=== PATIENT | male | born 1965 | race Caucasian/White ===

== ENCOUNTER 2018-01-30 14:37 | Emergency (ER) | payer SELFPAY ==
[2018-01-30] MEDS ORDERED: ASPIRIN PO ONE (14:54)
[2018-01-30 15:53] LABS: Basophils # (Auto) 0.1 K/mm3 (0.0-0.1); Basophils % (Auto) 1.2 % (0.0-1.8); Eosinophils % (Auto) 0.3 % (0.0-4.3); Hematocrit 38.8 % (35.5-45.6); Hemoglobin 13.2 gm/dl (11.8-15.2); Lymphocytes # (Auto) 1.5 K/mm3 (1.2-5.4); Lymphocytes % (Auto) 22.8 % (13.4-35.0); Mean Corpuscular HGB Conc 34 % (32-34); Mean Corpuscular Hemoglobin 34 pg (28-32); Mean Corpuscular Volume 101 fl (84-94); Monocytes # (Auto) 0.2 K/mm3 (0.0-0.8); Monocytes % (Auto) 3.5 % (0.0-7.3); Platelet Count 104 K/mm3 (140-440); Red Blood Count 3.85 M/mm3 (3.65-5.03); Red Cell Distribution Width 17.1 % (13.2-15.2)
--- NOTE | 2018-01-30 15:56 | XRay Report ---
FINAL REPORT EXAM: XR CHEST ROUTINE 2V HISTORY: SOB, chest pain TECHNIQUE: 2 view examination of the chest PRIORS: None FINDINGS: There is no visible pulmonary consolidation, pleural effusion, or pneumothorax. Cardiac silhouette size is normal without vascular congestion. No visible acute displaced fracture in the regional skeleton. IMPRESSION: No evidence of acute cardiopulmonary disease
[2018-01-30 16:06] LABS: BUN/Creatinine Ratio 22; Blood Urea Nitrogen 13 mg/dL (9-20); Calcium 8.7 mg/dL (8.4-10.2); Hemolysis Index 7
[2018-01-30] MEDS ORDERED: NITROSTAT SL PRN (17:18)
--- NOTE | 2018-01-30 17:22 | History and Physical Report ---
Medications and Allergies Allergies Allergy/AdvReac Type Severity Reaction Status Date / Time No Known Allergies Allergy Unverified 01/30/18 14:54 Active Meds: Active Medications Nitroglycerin (Nitrostat) 0.4 mg SL .Q5MIN PRN PRN Reason: Chest Pain Exam - Constitutional Vitals: Temp Pulse Resp BP Pulse Ox 98.6 F 67 16 116/75 98 01/30/18 14:50 01/30/18 14:50 01/30/18 14:50 01/30/18 14:50 01/30/18 14:50 Results - Labs CBC & Chem 7: 01/30/18 15:40 01/30/18 15:40 Labs: Abnormal lab results 01/30/18 01/30/18 Range/Units 15:40 15:40 MCV 101 H (84-94) fl MCH 34 H (28-32) pg RDW 17.1 H (13.2-15.2) % Plt Count 104 L (140-440) K/mm3 Seg Neutrophils % 72.2 H (40.0-70.0) % Chloride 96.2 L (98-107) mmol/L Creatinine 0.6 L (0.8-1.5) mg/dL Glucose 123 H (75-100) mg/dL
--- NOTE | 2018-01-30 17:39 | Emergency Department Report ---
ED General Adult HPI - General Chief complaint: Chest Pain Stated complaint: CHEST PAIN/ABN EKG Time Seen by Provider: 01/30/18 17:01 Source: patient, family, interpreter translator Mode of arrival: Ambulatory Limitations: No Limitations - History of Present Illness Initial comments: Patient presents to emergency department with left-sided chest pain that started this morning. Patient is Urdu-speaking and uses an interpreter translator for his history. Pain is described as sharp with radiation into his left shoulder. Patient has no medical history but does not routinely see her physician. Nothing seems to make his symptoms better or worse. -: Sudden Location: chest Radiation: other (shoulder) Severity scale (0 -10): 7 Quality: dull, other (pressure) Improves with: none Worsens with: none Associated Symptoms: denies other symptoms Treatments Prior to Arrival: none - Related Data Allergies Allergy/AdvReac Type Severity Reaction Status Date / Time No Known Allergies Allergy Unverified 01/30/18 14:54 ED Review of Systems ROS: Stated complaint: CHEST PAIN/ABN EKG Other details as noted in HPI Comment: All other systems reviewed and negative Constitutional: denies: chills, fever Eyes: denies: eye pain, eye discharge, vision change ENT: denies: ear pain, throat pain Respiratory: denies: cough, shortness of breath, wheezing Cardiovascular: chest pain Endocrine: no symptoms reported Gastrointestinal: denies: abdominal pain, nausea, diarrhea Genitourinary: denies: urgency, dysuria Musculoskeletal: denies: back pain, joint swelling, arthralgia Skin: denies: rash, lesions Neurological: denies: headache, weakness, paresthesias Psychiatric: denies: anxiety, depression Hematological/Lymphatic: denies: easy bleeding, easy bruising ED Past Medical Hx - Past Medical History Previous Medical History?: No - Surgical History Past Surgical History?: No - Social History Smoking Status: Never Smoker Substance Use Type: None ED Physical Exam - General Limitations: No Limitations General appearance: alert, in no apparent distress - Head Head exam: Present: atraumatic, normocephalic - Eye Eye exam: Present: normal appearance - ENT ENT exam: Present: mucous membranes moist - Neck Neck exam: Present: normal inspection - Respiratory Respiratory exam: Present: normal lung sounds bilaterally. Absent: respiratory distress - Cardiovascular Cardiovascular Exam: Present: regular rate, normal rhythm. Absent: systolic murmur, diastolic murmur, rubs, gallop - GI/Abdominal GI/Abdominal exam: Present: soft, normal bowel sounds - Rectal Rectal exam: Present: deferred - Extremities Exam Extremities exam: Present: normal inspection - Back Exam Back exam: Present: normal inspection - Neurological Exam Neurological exam: Present: alert, oriented X3 - Psychiatric Psychiatric exam: Present: normal affect, normal mood - Skin Skin exam: Present: warm, dry, intact, normal color. Absent: rash ED Course Vital Signs 01/30/18 14:50 Temperature 98.6 F Pulse Rate 67 Respiratory 16 Rate Blood Pressure 116/75 O2 Sat by Pulse 98 Oximetry ED Medical Decision Making - Lab Data Result diagrams: 01/30/18 15:40 01/30/18 15:40 - EKG Data EKG shows normal: sinus rhythm Rate: normal (60) - EKG Data Interpretation: nonspecific ST-T wave tayo - Medical Decision Making Patient will be admitted for chest pain workup Critical care attestation.: If time is entered above; I have spent that time in minutes in the direct care of this critically ill patient, excluding procedure time. ED Disposition Clinical Impression: Chest pain Disposition: DC-09 OP ADMIT IP TO THIS HOSP Is pt being admited?: Yes Does the pt Need Aspirin: Yes Condition: Fair Instructions: Chest Pain (ED) Referrals: PRIMARY CARE, [Primary Care Provider] - 3-5 Days Time of Disposition: 17:10
--- NOTE | 2018-01-30 18:38 | Cat Scan Report ---
FINAL REPORT EXAM: CT ANGIO CHEST HISTORY: dypsnea TECHNIQUE: CT examination of the chest with IV contrast CT angiographic 2D and thick slab 3D image post-processing PRIORS: Two-view chest 01/30/2018 FINDINGS: Normal cardiac size without pericardial effusion. Intact normal caliber thoracic aorta. Normal-appearing esophagus. No hilar mass or mediastinal adenopathy. The visualized pulmonary arteries are diffusely patent bilaterally. There is no filling defect to suggest PE. Nonspecific diffusely decreased density of liver parenchyma may reflect fatty infiltration. No visualized focal liver lesion. No acute fracture or significant osseous lesion. No pneumothorax, pleural effusion, or focal pulmonary consolidation. Small calcified granuloma right lower lobe. No evidence of noncalcified lung nodule or pulmonary mass. IMPRESSION: Suggestion of hepatic steatosis No CT evidence of PE
[2018-01-30] MEDS ORDERED: ZOFRAN ODT ONE (20:46)
[2018-01-30] MEDS ORDERED: ZOFRAN ODT PO ONE (20:49)
[2018-01-30 23:03] VITALS: BP 117/72
== END 2018-01-30 21:30 | disposition admitted as inpatient to this hospital (09) ==
LOC: ED 14:37
DX: R07.89 Other chest pain (principal)
CPT/HCPCS: 36415; 71046; 71275; 80048; 84484; 85025; 85379; 93005; 93010; 99285; Q9967; Q0162

== ENCOUNTER 2019-01-28 13:31 | Inpatient (IN) | payer OTHER ==
[2019-01-28] MEDS ORDERED: NACL 0.9% 1000 ML IV ONE (14:01)
[2019-01-28] MEDS ORDERED: NACL 0.9% 1000 ML 2,000 ML ONE (14:04)
--- NOTE | 2019-01-28 14:07 | Emergency Department Report ---
ED Shortness of Breath HPI - General Chief Complaint: Dyspnea/Respdistress Stated Complaint: GRAHAM Time Seen by Provider: 01/28/19 13:57 Source: patient, family, EMS Mode of arrival: Stretcher Limitations: Language Barrier - History of Present Illness Initial Comments: Patient is 53 years old male with no significant past medical history except for chronic alcoholism. Patient presented to the ER via EMS from his primary care physician office after patient presented with cough and shortness of breath. Patient was found to have an oxygen saturation of 60% on room air patient put on nonrebreather and his oxygen saturation went to 95%. Patient family denied any fever recently. Patient also denied any chest pain. MD Complaint: shortness of breath, cough -: days(s) Severity: severe Context: recent URI - Related Data Previous Rx's Medication Instructions Recorded Last Taken Type Folic Acid 1 tab PO QDAY #30 tab 01/30/18 Unknown Rx Folic Acid [Folvite] 1 mg PO QDAY #30 tablet 01/30/18 Unknown Rx Pantoprazole [Protonix TAB] 20 mg PO BID #60 tablet. 01/30/18 Unknown Rx Sucralfate [Carafate] 1 gm PO ACHS #30 tablet 01/30/18 Unknown Rx Thiamine [Vitamin B-1] 100 mg PO QDAY #30 tablet 01/30/18 Unknown Rx Allergies Allergy/AdvReac Type Severity Reaction Status Date / Time No Known Allergies Allergy Unverified 01/30/18 14:54 ED Review of Systems ROS: Stated complaint: GRAHAM Other details as noted in HPI Comment: All other systems reviewed and negative Constitutional: denies: chills, fever Respiratory: cough, shortness of breath, SOB with exertion, SOB at rest. denies: orthopnea, stridor, wheezing Cardiovascular: palpitations. denies: chest pain Gastrointestinal: denies: abdominal pain, nausea, vomiting, diarrhea, constipation, hematemesis, hematochezia Neurological: denies: headache, weakness, numbness, paresthesias, confusion ED Past Medical Hx - Past Medical History Previous Medical History?: Yes Hx Liver Disease: Yes - Surgical History Past Surgical History?: No - Social History Smoking Status: Never Smoker Substance Use Type: Alcohol - Medications Home Medications: Home Medications Medication Instructions Recorded Confirmed Last Taken Type Folic Acid 1 tab PO QDAY #30 tab 01/30/18 Unknown Rx Folic Acid [Folvite] 1 mg PO QDAY #30 tablet 01/30/18 Unknown Rx Pantoprazole [Protonix TAB] 20 mg PO BID #60 tablet. 01/30/18 Unknown Rx Sucralfate [Carafate] 1 gm PO ACHS #30 tablet 01/30/18 Unknown Rx Thiamine [Vitamin B-1] 100 mg PO QDAY #30 tablet 01/30/18 Unknown Rx ED Physical Exam - General Limitations: Language Barrier General appearance: alert, in no apparent distress - Head Head exam: Present: atraumatic, normocephalic, normal inspection - Eye Eye exam: Present: normal appearance - ENT ENT exam: Present: mucous membranes dry - Neck Neck exam: Present: normal inspection, full ROM. Absent: tenderness, meningismus, lymphadenopathy, thyromegaly - Respiratory Respiratory exam: Present: rales - Cardiovascular Cardiovascular Exam: Present: tachycardia - GI/Abdominal GI/Abdominal exam: Present: soft, normal bowel sounds. Absent: distended, tenderness, guarding, rebound, rigid, organomegaly, mass, bruit, pulsatile mass, hernia - Extremities Exam Extremities exam: Present: normal inspection, full ROM, normal capillary refill. Absent: tenderness, pedal edema, joint swelling, calf tenderness - Back Exam Back exam: Present: normal inspection, full ROM. Absent: tenderness, CVA tenderness (R), CVA tenderness (L), muscle spasm, paraspinal tenderness, vertebral tenderness - Neurological Exam Neurological exam: Present: alert, oriented X3, CN II-XII intact, normal gait - Skin Skin exam: Present: warm, intact, normal color ED Course Vital Signs 01/28/19 01/28/19 01/28/19 13:24 13:30 13:33 Temperature 98.3 F Pulse Rate 115 H 115 H Pulse Rate [ Intra-Procedure ] Pulse Rate [ Post-Procedure] Pulse Rate [Pre -Procedure] Respiratory 34 H 30 H Rate Respiratory Rate [Intra- Procedure] Respiratory Rate [Post- Procedure] Respiratory Rate [Pre- Procedure] Blood Pressure 77/48 86/53 Blood Pressure [Intra- Procedure] Blood Pressure [Post-Procedure ] Blood Pressure [Pre-Procedure] Blood Pressure 86/53 [Right] O2 Sat by Pulse 95 94 95 Oximetry O2 Sat by Pulse Oximetry [ Intra-Procedure ] O2 Sat by Pulse Oximetry [Post -Procedure] O2 Sat by Pulse Oximetry [Pre- Procedure] 01/28/19 01/28/19 01/28/19 13:42 13:46 14:00 Temperature Pulse Rate 115 H 117 H Pulse Rate [ Intra-Procedure ] Pulse Rate [ Post-Procedure] Pulse Rate [Pre -Procedure] Respiratory 30 H 40 H 27 H Rate Respiratory Rate [Intra- Procedure] Respiratory Rate [Post- Procedure] Respiratory Rate [Pre- Procedure] Blood Pressure 86/53 86/53 Blood Pressure [Intra- Procedure] Blood Pressure [Post-Procedure ] Blood Pressure [Pre-Procedure] Blood Pressure [Right] O2 Sat by Pulse 95 91 90 Oximetry O2 Sat by Pulse Oximetry [ Intra-Procedure ] O2 Sat by Pulse Oximetry [Post -Procedure] O2 Sat by Pulse Oximetry [Pre- Procedure] 01/28/19 01/28/19 01/28/19 14:16 14:30 14:46 Temperature Pulse Rate 113 H 113 H 116 H Pulse Rate [ Intra-Procedure ] Pulse Rate [ Post-Procedure] Pulse Rate [Pre -Procedure] Respiratory 40 H 29 H 24 Rate Respiratory Rate [Intra- Procedure] Respiratory Rate [Post- Procedure] Respiratory Rate [Pre- Procedure] Blood Pressure 86/53 86/53 86/53 Blood Pressure [Intra- Procedure] Blood Pressure [Post-Procedure ] Blood Pressure [Pre-Procedure] Blood Pressure [Right] O2 Sat by Pulse 91 89 87 Oximetry O2 Sat by Pulse Oximetry [ Intra-Procedure ] O2 Sat by Pulse Oximetry [Post -Procedure] O2 Sat by Pulse Oximetry [Pre- Procedure] 01/28/19 01/28/19 01/28/19 15:00 15:16 15:30 Temperature Pulse Rate 117 H 117 H 118 H Pulse Rate [ Intra-Procedure ] Pulse Rate [ Post-Procedure] Pulse Rate [Pre -Procedure] Respiratory 42 H 37 H 35 H Rate Respiratory Rate [Intra- Procedure] Respiratory Rate [Post- Procedure] Respiratory Rate [Pre- Procedure] Blood Pressure 86/53 86/53 86/53 Blood Pressure [Intra- Procedure] Blood Pressure [Post-Procedure ] Blood Pressure [Pre-Procedure] Blood Pressure [Right] O2 Sat by Pulse 86 86 87 Oximetry O2 Sat by Pulse Oximetry [ Intra-Procedure ] O2 Sat by Pulse Oximetry [Post -Procedure] O2 Sat by Pulse Oximetry [Pre- Procedure] 01/28/19 01/28/19 01/28/19 15:36 15:46 16:08 Temperature Pulse Rate 118 H 123 H 122 H Pulse Rate [ Intra-Procedure ] Pulse Rate [ Post-Procedure] Pulse Rate [Pre -Procedure] Respiratory 21 33 H 39 H Rate Respiratory Rate [Intra- Procedure] Respiratory Rate [Post- Procedure] Respiratory Rate [Pre- Procedure] Blood Pressure 95/46 95/46 Blood Pressure [Intra- Procedure] Blood Pressure [Post-Procedure ] Blood Pressure [Pre-Procedure] Blood Pressure 95/46 [Right] O2 Sat by Pulse 90 85 90 Oximetry O2 Sat by Pulse Oximetry [ Intra-Procedure ] O2 Sat by Pulse Oximetry [Post -Procedure] O2 Sat by Pulse Oximetry [Pre- Procedure] 01/28/19 01/28/19 01/28/19 16:54 17:00 17:12 Temperature 98.2 F Pulse Rate 118 H 114 H Pulse Rate [ Intra-Procedure ] Pulse Rate [ Post-Procedure] Pulse Rate [Pre -Procedure] Respiratory 33 H 36 H Rate Respiratory Rate [Intra- Procedure] Respiratory Rate [Post- Procedure] Respiratory Rate [Pre- Procedure] Blood Pressure 95/46 Blood Pressure [Intra- Procedure] Blood Pressure [Post-Procedure ] Blood Pressure [Pre-Procedure] Blood Pressure 89/54 [Right] O2 Sat by Pulse 70 L 93 94 Oximetry O2 Sat by Pulse Oximetry [ Intra-Procedure ] O2 Sat by Pulse Oximetry [Post -Procedure] O2 Sat by Pulse Oximetry [Pre- Procedure] 01/28/19 01/28/19 01/28/19 17:15 17:31 17:45 Temperature Pulse Rate 114 H 114 H 110 H Pulse Rate [ Intra-Procedure ] Pulse Rate [ Post-Procedure] Pulse Rate [Pre -Procedure] Respiratory 38 H 37 H 37 H Rate Respiratory Rate [Intra- Procedure] Respiratory Rate [Post- Procedure] Respiratory Rate [Pre- Procedure] Blood Pressure 95/46 78/48 194/167 Blood Pressure [Intra- Procedure] Blood Pressure [Post-Procedure ] Blood Pressure [Pre-Procedure] Blood Pressure [Right] O2 Sat by Pulse 92 93 96 Oximetry O2 Sat by Pulse Oximetry [ Intra-Procedure ] O2 Sat by Pulse Oximetry [Post -Procedure] O2 Sat by Pulse Oximetry [Pre- Procedure] 01/28/19 01/28/19 01/28/19 17:58 18:00 18:12 Temperature Pulse Rate 112 H 112 H 113 H Pulse Rate [ Intra-Procedure ] Pulse Rate [ Post-Procedure] Pulse Rate [Pre -Procedure] Respiratory 37 H 40 H 34 H Rate Respiratory Rate [Intra- Procedure] Respiratory Rate [Post- Procedure] Respiratory Rate [Pre- Procedure] Blood Pressure 75/48 75/48 Blood Pressure [Intra- Procedure] Blood Pressure [Post-Procedure ] Blood Pressure [Pre-Procedure] Blood Pressure 86/47 [Right] O2 Sat by Pulse 95 94 94 Oximetry O2 Sat by Pulse Oximetry [ Intra-Procedure ] O2 Sat by Pulse Oximetry [Post -Procedure] O2 Sat by Pulse Oximetry [Pre- Procedure] 01/28/19 01/28/19 01/28/19 18:15 18:18 18:27 Temperature Pulse Rate 116 H 113 H Pulse Rate [ Intra-Procedure ] Pulse Rate [ Post-Procedure] Pulse Rate [Pre 114 H -Procedure] Respiratory 50 H 34 H Rate Respiratory Rate [Intra- Procedure] Respiratory Rate [Post- Procedure] Respiratory 34 H Rate [Pre- Procedure] Blood Pressure 77/47 Blood Pressure [Intra- Procedure] Blood Pressure [Post-Procedure ] Blood Pressure 88/56 [Pre-Procedure] Blood Pressure 77/37 [Right] O2 Sat by Pulse 95 96 Oximetry O2 Sat by Pulse Oximetry [ Intra-Procedure ] O2 Sat by Pulse Oximetry [Post -Procedure] O2 Sat by Pulse 94 Oximetry [Pre- Procedure] 01/28/19 01/28/19 01/28/19 18:30 18:35 18:41 Temperature Pulse Rate 116 H Pulse Rate [ 116 H 116 H Intra-Procedure ] Pulse Rate [ 118 H Post-Procedure] Pulse Rate [Pre 114 H 114 H -Procedure] Respiratory 39 H Rate Respiratory 34 H 34 H Rate [Intra- Procedure] Respiratory 34 H Rate [Post- Procedure] Respiratory 34 H 34 H Rate [Pre- Procedure] Blood Pressure 96/51 Blood Pressure 92/58 92/58 [Intra- Procedure] Blood Pressure 101/50 [Post-Procedure ] Blood Pressure 88/56 88/56 [Pre-Procedure] Blood Pressure [Right] O2 Sat by Pulse 93 Oximetry O2 Sat by Pulse 95 95 Oximetry [ Intra-Procedure ] O2 Sat by Pulse 94 Oximetry [Post -Procedure] O2 Sat by Pulse 94 94 Oximetry [Pre- Procedure] 01/28/19 18:45 Temperature Pulse Rate 115 H Pulse Rate [ Intra-Procedure ] Pulse Rate [ Post-Procedure] Pulse Rate [Pre -Procedure] Respiratory 28 H Rate Respiratory Rate [Intra- Procedure] Respiratory Rate [Post- Procedure] Respiratory Rate [Pre- Procedure] Blood Pressure 87/55 Blood Pressure [Intra- Procedure] Blood Pressure [Post-Procedure ] Blood Pressure [Pre-Procedure] Blood Pressure [Right] O2 Sat by Pulse 94 Oximetry O2 Sat by Pulse Oximetry [ Intra-Procedure ] O2 Sat by Pulse Oximetry [Post -Procedure] O2 Sat by Pulse Oximetry [Pre- Procedure] - Central Line Placement Right Femoral Consent Obtained: written consent Time Out Performed: Yes Patient Placed on Monitor/Pulse Ox: Yes MD Prep: mask, gown, gloves Central Line Prep: Povidone-Iodine 1%, Chlorhexidine scrub, sterile drapes applied Local Anesthesia Used: Lidocaine 2% Central Line Lumen Inserted: triple Central Line Position: good blood return, all ports aspirated, flus, sutured in place with 2-0 Dressing Applied: Tegaderm, sterile gauze/tape Patient Tolerated Procedure: well, no complications Complications: none ED Medical Decision Making - Lab Data Result diagrams: 01/28/19 14:04 01/28/19 14:04 - EKG Data -: EKG Interpreted by Nc EKG shows normal: sinus rhythm Rate: tachycardia - EKG Data Interpretation: no acute changes - Radiology Data Radiology results: report reviewed CT abdomen and pelvis is unremarkable except for severe bilateral infiltrates consistent with pneumonia. - Medical Decision Making Patient is 53 years old male with no significant past medical history except for chronic alcoholism. Patient presented to the ER via EMS from his primary care physician office after patient presented with cough and shortness of breath. Patient was found to have an oxygen saturation of 60% on room air patient put on nonrebreather and his oxygen saturation went to 95%. Patient family denied any fever recently. Patient also denied any chest pain. Patient found to have bilateral lower lobe infiltrate, septic with a lactic acid of 5.6. Patient received Rocephin and Zithromax. Patient also found to be in acute renal failure most likely due to sepsis. Patient received 2 L of normal s silva per septic protocol. Discussed the patient is Dr. Jernigan, he agreed to admit the patient to medical service for further management. Critical Care Time: Yes Critical care time in (mins) excluding proc time.: 45 Critical care attestation.: If time is entered above; I have spent that time in minutes in the direct care of this critically ill patient, excluding procedure time. ED Disposition Clinical Impression: Septic shock, Acute renal failure, Bilateral pneumonia, Thrombocytopenia, Leukopenia Disposition: OP ADMIT IP TO THIS HOSP Is pt being admited?: Yes Condition: Stable Instructions: Bacterial Pneumonia (ED) Referrals: JENNIFER SHAH MD [Primary Care Provider] - 3-5 Days
[2019-01-28 14:20] LABS: Hematocrit 36.6 % (35.5-45.6); Hemoglobin 12.5 gm/dl (11.8-15.2); Mean Corpuscular HGB Conc 34 % (32-34); Mean Corpuscular Volume 102 fl (84-94); Red Blood Count 3.58 M/mm3 (3.65-5.03); Red Cell Distribution Width 16.1 % (13.2-15.2)
[2019-01-28 14:32] LABS: Platelet Count 20 K/mm3 (140-440)
[2019-01-28 14:33] LABS: INR 1.49 (0.87-1.13)
[2019-01-28 14:34] LABS: Partial Thromboplastin Time 35.9 Sec. (24.2-36.6)
--- NOTE | 2019-01-28 14:45 | XRay Report ---
AP CHEST: HISTORY: Cough Mild vascular congestion and small pleural effusions have developed since 01/30/18. Heart size is borderline. Atelectatic changes are noted in the lower lung zones right greater than left. The bony structures are grossly intact. IMPRESSION: Finding suggestive of mild CHF which appear to be new since 01/30/18. Bibasilar atelectatic changes.
[2019-01-28] MEDS ORDERED: ROCEPHIN/NS 2 GM/100 ML 2 GM/100 ML BAG IV SCH (15:00)
[2019-01-28 15:06] LABS: Alanine Aminotransferase 56 units/L (7-56); Albumin 2.1 g/dL (3.9-5); BUN/Creatinine Ratio 13; Blood Urea Nitrogen 64 mg/dL (9-20); Hemolysis Index 3
[2019-01-28] MEDS ORDERED: NACL 0.9% 1000 ML 1,000 ML IV ONE ×2 (15:37→17:40)
[2019-01-28] MEDS: ZITHROMAX 500 MG in NACL 0.9% 250ML 250 ML IV SCH (15:56)
[2019-01-28 16:28] LABS: Band Neutrophils # (Manual) 0.1 K/mm3; Basophils % (Manual) 0 % (0.0-1.8); Myelocytes # (Manual) 0.1 K/mm3; Total Cells Counted 100
[2019-01-28 16:30] LABS: Platelet Estimate Appears Decreased
[2019-01-28 16:32] LABS: Anisocytosis 1+; Target Cells Rare; Tear Drop Cells Rare
--- NOTE | 2019-01-28 17:11 | Cat Scan Report ---
PROCEDURE: CT ABDOMEN PELVIS WO CON TECHNIQUE: CT abdomen and pelvis without contrast HISTORY: ABDOMINAL PAIN COMPARISONS: FINDINGS: There are extensive bilateral pulmonary consolidating infiltrates containing some air bronchograms Nonenhanced images of the liver demonstrate no acute findings. The spleen is normal in size The kidneys demonstrate no evidence for hydronephrosis or nephrolithiasis. No peripancreatic inflammatory changes are observed. No significant colonic or small bowel distention . The appendix is tentatively identified and appears unremarkable. Urinary bladder is unremarkable No free fluid or free air identified. The abdominal aorta is normal in caliber. IMPRESSION: Severe bilateral pulmonary infiltrates likely reflecting pneumonia. No acute intra-abdominal findings on noncontrast CT This document is electronically signed by Alessio Parry MD., Jan 28 2019 05:09:26 PM ET
[2019-01-28 17:16] LABS: Bacteria,Urine 1+ /HPF (Negative); Bilirubin,Urine NEG (Negative); Blood,Urine MOD (Negative); Color,Urine Amber (Yellow); Hyaline Casts,Urine 1 /LPF; Mucus,Urine FEW /HPF; Urobilinogen,Urine < 2.0 mg/dL (<2.0)
[2019-01-28] MEDS ORDERED: LEVOPHED DRIP 4 MG/NS 250 ML 4 MG/250 ML BAG IV ONE (17:36)
[2019-01-28] MEDS: LEVOPHED DRIP 4 MG/NS 250 ML 4 MG/250 ML BAG IV SCH ×2 (18:10→22:40)
--- NOTE | 2019-01-28 18:22 | Nuclear Medicine Report ---
PROCEDURE: Nuclear medicine ventilation and perfusion lung scan. TECHNIQUE: Ventilation imaging was done in the posterior projection using 16.3 mCi of xenon-133 gas. Perfusion imaging was done in multiple projections using 5 mCi of technetium 99m MAA. HISTORY: Shortness of breath, elevated d-dimer. COMPARISONS: Comparison chest radiograph 01/28/2019. FINDINGS: There is symmetrical, homogeneous ventilation bilaterally. There is no trapping of xenon gas in the w ashout phase of the study. The perfusion images are matching with fairly homogeneous perfusion. There are no definite perfusion defects identified. The lung scan is normal and caries an extremely low pr obability of pulmonary embolism. IMPRESSION: Normal lung scan. This document is electronically signed by Dejuan Logan MD., Jan 28 2019 06:20:07 PM ET
--- NOTE | 2019-01-28 18:33 | History and Physical Report ---
History of Present Illness Date of examination: 01/28/19 Date of admission: 01/28/2019 Chief complaint: Fever cough and shortness of breath for 2 days History of present illness: 53-year-old male with history of gastroesophageal reflux disease and EtOH dependence sent from the primary care office for cough shortness of breath and low oxygen saturation levels. On arrival in the emergency room patient was hypotensive and his oxygen saturations were 60% on room air. Patient was kept on nonrebreather and multiple normal saline bolus boluses were given. Patient hypoxic and on BiPAP. Past Medical History Previous Medical History?: Yes Hx Liver Disease: Yes EtOH dependence Surgical History Past Surgical History?: No Social History Smoking Status: Never Smoker Substance Use Type: Alcohol regularly Family history N/a Medications Home Medications: Home Medications Medication Instructions Recorded Confirmed Last Taken Type Folic Acid 1 tab PO QDAY #30 tab 01/30/18 Unknown Rx Folic Acid [Folvite] 1 mg PO QDAY #30 tablet 01/30/18 Unknown Rx Pantoprazole [Protonix TAB] 20 mg PO BID #60 tablet. 01/30/18 Unknown Rx Sucralfate [Carafate] 1 gm PO ACHS #30 tablet 01/30/18 Unknown Rx Thiamine [Vitamin B-1] 100 mg PO QDAY #30 tablet 01/30/18 Unknown Rx Review of Systems ROS: Stated complaint: GRAHAM Other details as noted in HPI Comment: All other systems reviewed and negative Constitutional: denies: chills, fever Respiratory: cough, shortness of breath, SOB with exertion, SOB at rest. denies: orthopnea, stridor, wheezing Cardiovascular: palpitations. denies: chest pain Gastrointestinal: denies: abdominal pain, nausea, vomiting, diarrhea, constipation, hematemesis, hematochezia Neurological: denies: headache, weakness, numbness, paresthesias, confusion 14 point review of systems done--otherwise negative Medications and Allergies Allergies Allergy/AdvReac Type Severity Reaction Status Date / Time No Known Allergies Allergy Unverified 01/30/18 14:54 Home Medications Medication Instructions Recorded Confirmed Last Taken Type Folic Acid 1 tab PO QDAY #30 tab 01/30/18 Unknown Rx Folic Acid [Folvite] 1 mg PO QDAY #30 tablet 01/30/18 Unknown Rx Pantoprazole [Protonix TAB] 20 mg PO BID #60 tablet. 01/30/18 Unknown Rx Sucralfate [Carafate] 1 gm PO ACHS #30 tablet 01/30/18 Unknown Rx Thiamine [Vitamin B-1] 100 mg PO QDAY #30 tablet 01/30/18 Unknown Rx Active Meds: Active Medications Ceftriaxone Sodium (Rocephin/Ns 2 Gm/100 Ml) 2 gm in 100 mls @ 200 mls/hr IV Q24HR INDU; Protocol Last Admin: 01/28/19 15:05 Dose: 200 mls/hr Documented by: Azithromycin 500 mg/ Sodium (Chloride) 250 mls @ 250 mls/hr IV Q24HR INDU; Protocol Last Admin: 01/28/19 15:56 Dose: 250 mls/hr Documented by: Sodium Chloride (Nacl 0.9% 1000 Ml) 1,000 mls @ 999 mls/hr IV BOLUS ONE Stop: 01/28/19 18:40 Last Admin: 01/28/19 17:40 Dose: 999 mls/hr Documented by: Norepinephrine (Levophed Drip 4 Mg/Ns 250 Ml) 4 mg in 250 mls @ 18.75 mls/hr IV TITR INDU; Protocol Last Admin: 01/28/19 18:10 Dose: 5 mcg/min, 18.75 mls/hr Documented by: Exam - Constitutional Vitals: Temp Pulse Resp BP Pulse Ox 98.2 F 113 H 34 H 77/37 96 01/28/19 17:00 01/28/19 18:18 01/28/19 18:18 01/28/19 18:18 01/28/19 18:18 General appearance: Present: severe distress, well-nourished - EENT Eyes: Present: PERRL ENT: hearing intact, clear oral mucosa - Neck Neck: Present: supple, normal ROM - Respiratory Respiratory effort: normal Respiratory: bilateral: CTA - Cardiovascular Heart rate: 100 Rhythm: regular Heart Sounds: Present: S1 & S2. Absent: rub, click - Extremities Extremities: no ischemia, pulses intact, pulses symmetrical, No edema Peripheral Pulses: within normal limits - Abdominal General gastrointestinal: Present: soft, non-tender, non-distended, normal bowel sounds Male genitourinary: Present: normal - Integumentary Integumentary: Present: clear, warm, dry - Musculoskeletal Musculoskeletal: generalized weakness - Psychiatric Psychiatric: appropriate mood/affect, intact judgment & insight - Neurologic Neurologic: CNII-XII intact, moves all extremities - Allied Health Allied health notes reviewed: nursing, case management Results - Labs CBC & Chem 7: 01/28/19 14:04 01/28/19 14:04 Labs: Laboratory Last Values WBC 2.8 K/mm3 (4.5-11.0) L 01/28/19 14:04 RBC 3.58 M/mm3 (3.65-5.03) L 01/28/19 14:04 Hgb 12.5 gm/dl (11.8-15.2) 01/28/19 14:04 Hct 36.6 % (35.5-45.6) 01/28/19 14:04 MCV 102 fl (84-94) H 01/28/19 14:04 MCH 35 pg (28-32) H 01/28/19 14:04 MCHC 34 % (32-34) 01/28/19 14:04 RDW 16.1 % (13.2-15.2) H 01/28/19 14:04 Plt Count 20 K/mm3 (140-440) L 01/28/19 14:04 Add Manual Diff Complete 01/28/19 14:04 Total Counted 100 01/28/19 14:04 Seg Neuts % (Manual) 75.0 % (40.0-70.0) H 01/28/19 14:04 5.0 % 01/28/19 14:04 12.0 % (13.4-35.0) L 01/28/19 14:04 Reactive Lymphs % (Man) 0 % 01/28/19 14:04 4.0 % (0.0-7.3) 01/28/19 14:04 1.0 % (0.0-4.3) 01/28/19 14:04 0 % (0.0-1.8) 01/28/19 14:04 0 % 01/28/19 14:04 3.0 % 01/28/19 14:04 0 % 01/28/19 14:04 0 % 01/28/19 14:04 Nucleated RBC % 1.0 % (0.0-0.9) H 01/28/19 14:04 Seg Neutrophils # Man 2.1 K/mm3 (1.8-7.7) 01/28/19 14:04 Band Neutrophils # 0.1 K/mm3 01/28/19 14:04 0.3 K/mm3 (1.2-5.4) L 01/28/19 14:04 Abs React Lymphs (Man) 0.0 K/mm3 01/28/19 14:04 0.1 K/mm3 (0.0-0.8) 01/28/19 14:04 0.0 K/mm3 (0.0-0.4) 01/28/19 14:04 0.0 K/mm3 (0.0-0.1) 01/28/19 14:04 0.0 K/mm3 01/28/19 14:04 0.1 K/mm3 01/28/19 14:04 0.0 K/mm3 01/28/19 14:04 Blast Cells # 0.0 K/mm3 01/28/19 14:04 WBC Morphology Not Reportable 01/28/19 14:04 Hypersegmented Neuts Not Reportable 01/28/19 14:04 Hyposegmented Neuts Not Reportable 01/28/19 14:04 Hypogranular Neuts Not Reportable 01/28/19 14:04 Not Reportable 01/28/19 14:04 Not Reportable 01/28/19 14:04 Not Reportable 01/28/19 14:04 Not Reportable 01/28/19 14:04 Not Reportable 01/28/19 14:04 Not Reportable 01/28/19 14:04 Appears decreased 01/28/19 14:04 Not Reportable 01/28/19 14:04 Plt Clumps, EDTA Not Reportable 01/28/19 14:04 Not Reportable 01/28/19 14:04 Not Reportable 01/28/19 14:04 Not Reportable 01/28/19 14:04 Plt Morphology Comment Not Reportable 01/28/19 14:04 RBC Morphology Not Reportable 01/28/19 14:04 Dimorphic RBCs Not Reportable 01/28/19 14:04 Not Reportable 01/28/19 14:04 Not Reportable 01/28/19 14:04 Not Reportable 01/28/19 14:04 1+ 01/28/19 14:04 Not Reportable 01/28/19 14:04 Not Reportable 01/28/19 14:04 Not Reportable 01/28/19 14:04 Not Reportable 01/28/19 14:04 Not Reportable 01/28/19 14:04 Rare 01/28/19 14:04 Rare 01/28/19 14:04 Not Reportable 01/28/19 14:04 Not Reportable 01/28/19 14:04 Not Reportable 01/28/19 14:04 Not Reportable 01/28/19 14:04 Not Reportable 01/28/19 14:04 Not Reportable 01/28/19 14:04 Not Reportable 01/28/19 14:04 Not Reportable 01/28/19 14:04 Acanthocytes (Spur) Not Reportable 01/28/19 14:04 Rouleaux Not Reportable 01/28/19 14:04 Not Reportable 01/28/19 14:04 Not Reportable 01/28/19 14:04 Not Reportable 01/28/19 14:04 Not Reportable 01/28/19 14:04 Hem Pathologist Commnt No 01/28/19 14:04 PT 19.0 Sec. (12.2-14.9) H 01/28/19 14:09 INR 1.49 (0.87-1.13) H 01/28/19 14:09 APTT 35.9 Sec. (24.2-36.6) 01/28/19 14:09 864.98 ng/mlDDU (0-234) H 01/28/19 14:09 POC ABG pH 7.164 (7.35-7.45) L 01/28/19 15:17 POC ABG pCO2 48.5 (35-45) H 01/28/19 15:17 POC ABG pO2 60 (80-105) L 01/28/19 15:17 POC ABG HCO3 17.4 (22-26 mml/L) 01/28/19 15:17 POC ABG Total CO2 19 (23-27mmol/L) 01/28/19 15:17 POC ABG O2 Sat 83 01/28/19 15:17 POC ABG Base Excess -11 ((-2) - (+3)mmol/L) 01/28/19 15:17 98 % 01/28/19 15:17 Sodium 134 mmol/L (137-145) L 01/28/19 14:04 Potassium 4.1 mmol/L (3.6-5.0) 01/28/19 14:04 Chloride 93.8 mmol/L (98-107) L 01/28/19 14:04 Carbon Dioxide 17 mmol/L (22-30) L 01/28/19 14:04 27 mmol/L 01/28/19 14:04 BUN 64 mg/dL (9-20) H 01/28/19 14:04 4.8 mg/dL (0.8-1.5) H 01/28/19 14:04 Estimated GFR 13 ml/min 01/28/19 14:04 13 % 01/28/19 14:04 Glucose 57 mg/dL (75-100) L 01/28/19 14:04 Lactic Acid 5.00 mmol/L (0.7-2.0) H* 01/28/19 17:17 Calcium 7.0 mg/dL (8.4-10.2) L 01/28/19 14:04 2.70 mg/dL (0.1-1.2) H 01/28/19 14:04 AST 146 units/L (5-40) H 01/28/19 14:04 ALT 56 units/L (7-56) 01/28/19 14:04 85 units/L (35-129) 01/28/19 14:04 < 0.010 ng/mL (0.00-0.029) 01/28/19 14:04 5.7 g/dL (6.3-8.2) L 01/28/19 14:04 2.1 g/dL (3.9-5) L 01/28/19 14:04 0.6 % 01/28/19 14:04 Gaby (Yellow) 01/28/19 17:00 Slightly-cloudy (Clear) 01/28/19 17:00 5.0 (5.0-7.0) 01/28/19 17:00 Ur Specific Art 1.015 (1.003-1.030) 01/28/19 17:00 30 mg/dl mg/dL (Negative) 01/28/19 17:00 Neg mg/dL (Negative) 01/28/19 17:00 Neg mg/dL (Negative) 01/28/19 17:00 Mod (Negative) 01/28/19 17:00 Neg (Negative) 01/28/19 17:00 Neg (Negative) 01/28/19 17:00 < 2.0 mg/dL (<2.0) 01/28/19 17:00 Ur Leukocyte Esterase Neg (Negative) 01/28/19 17:00 11.0 /HPF (0.0-6.0) H 01/28/19 17:00 3.0 /HPF (0.0-6.0) 01/28/19 17:00 U Epithel Cells (Auto) 2.0 /HPF (0-13.0) 01/28/19 17:00 1+ /HPF (Negative) 01/28/19 17:00 Hyaline Casts 1 /LPF 01/28/19 17:00 Few /HPF 01/28/19 17:00 - Imaging and Cardiology EKG: report reviewed (sinus tachycardia nonspecific intraventricular conduction delay) Chest x-ray: report reviewed Imaging and Cardiology: CT abdomen and pelvis IMPRESSION: Severe bilateral pulmonary infiltrates likely reflecting pneumonia. No acute intra-abdominal findings on noncontrast CT This document is electronically signed by Alessio Parry MD., Jan 28 2019 05:09:26 PM ET Chest x-ray IMPRESSION: Finding suggestive of mild CHF which appear to be new since 01/30/18. Bibasilar atelectatic changes. Assessment and Plan Assessment and plan: Critical care statement The high probability of a clinically significant sudden or life-threatening deterioration of the pulmonary cardiac revealed systems requirement for N direct attention intervention and personal management. The anterior critical care time was 45 minutes. This time is in addition to time spent performing reported procedures were includes the following Data review and interpretation Patient assessment and monitoring of vital signs Documentation Medication orders and management. Advance Directives: Yes (full code) VTE prophylaxis?: Chemical Plan of care discussed with patient/family: Yes - Patient Problems (1) Acute respiratory distress syndrome Current Visit: Yes Status: Acute Plan to address problem: Patient in ARDS Hypoxic Patient on BiPAP May need intubation (2) Acute respiratory failure with hypoxia Current Visit: Yes Status: Acute Plan to address problem: Patient in respiratory failure Secondary to sepsis and bilateral pneumonia IV antibiotics and nebulizer treatments and IV Solu-Medrol Chief Of Surgery consult (3) Septic shock Current Visit: Yes Status: Acute Plan to address problem: Levothroid if necessary (4) EtOH dependence Current Visit: Yes Status: Chronic Plan to address problem: CIWA protocol initiated (5) Bilateral pneumonia Current Visit: Yes Status: Acute Plan to address problem: IV cefepime and vancomycin I IV fluids ID consult requested (6) DVT prophylaxis Current Visit: Yes Status: Acute Plan to address problem: On Lovenox and GI prophylaxis
[2019-01-28] MEDS ORDERED: SODIUM CHLORIDE FLUSH SYRINGE 10 ML IV PRN (18:36)
[2019-01-28] MEDS ORDERED: MORPHINE IV PRN (18:36)
[2019-01-28] MEDS ORDERED: VANCOMYCIN PHARMACY TO DOSE IV SCH (19:00)
[2019-01-28] MEDS ORDERED: VANCOMYCIN 1,250 MG in NACL 0.9% 250ML 250 ML IV ONE (21:00)
[2019-01-28] MEDS: D5NS 1,000 ML IV SCH (21:59)
[2019-01-28] MEDS ORDERED: VASELINE LIP THERAPY TP ONE (21:59)
[2019-01-28] MEDS ORDERED: MAXIPIME/NS 1 GM/100 ML 1 GM/100 ML BAG IV SCH (22:00)
[2019-01-28] MEDS: SODIUM CHLORIDE FLUSH SYRINGE 10 ML IV SCH (22:41)
[2019-01-28] MEDS: MAXIPIME 0.5 GM in NACL 0.9% 100 ML IV SCH (23:21)
[2019-01-29] MEDS: LEVOPHED DRIP 4 MG/NS 250 ML 4 MG/250 ML BAG IV SCH ×4 (00:51→11:16)
[2019-01-29] MEDS ORDERED: HEPARIN SUB-Q SCH (01:30)
[2019-01-29 05:02] LABS: Hematocrit 33.1 % (35.5-45.6); Hemoglobin 11.1 gm/dl (11.8-15.2); Mean Corpuscular HGB Conc 34 % (32-34); Mean Corpuscular Volume 103 fl (84-94); Red Blood Count 3.22 M/mm3 (3.65-5.03); Red Cell Distribution Width 15.7 % (13.2-15.2)
[2019-01-29 05:24] LABS: Albumin 1.6 g/dL (3.9-5); Calcium 6.9 mg/dL (8.4-10.2)
[2019-01-29 06:17] LABS: Platelet Count 16 K/mm3 (140-440)
[2019-01-29] MEDS: D5NS 1,000 ML IV SCH (06:20)
[2019-01-29 07:21] LABS: Basophils % (Manual) 0 % (0.0-1.8); Eosinophils % (Manual) 0 % (0.0-4.3)
[2019-01-29 07:23] LABS: Anisocytosis 1+; Myelocytes # (Manual) 1.1 K/mm3; Promyelocytes # (Manual) 0.6 K/mm3; Total Cells Counted 100
[2019-01-29 07:24] LABS: Dohle Bodies 1+; Platelet Estimate Consistent w Auto
--- NOTE | 2019-01-29 08:58 | Consultation ---
History of Present Illness Consult date: 01/29/19 Requesting physician: LAYLA MAI History of present illness: 53 y/o male with history of alcohol dependence and gastroesophageal reflux disease admitted on 01/28/2019 sent from the primary care office for 3-week history of cough with hemoptysis and progressive shortness of breath, found to have low oxygen saturation levels. Per daughter, patient has lost 5 L in 3 weeks. He has poor appetite. Denies any contacts with TB. Born in [place], came to [facility] 20+ years ago. He has never gone back since. He drinks alcohol. Denies drugs. Patient is not the best of the historians even when interview in Ukrainian. In the ED< temp 98.3, HR 115, R 34, BP 77/48, oxygen sat 60% on room air. WBC 2.8. Hg 12.5. Plat 20. INR 1.4. Ddimer 864. Creat 4.8. Lactate 5.2. AST 146. UA negative. HIV rapid negative. Patient was kept on non rebreather and multiple no rmal saline bolus boluses were given. Patient was then placed on BIPAP and started on pressors. CXR showed findings suggestive of mild CHF which appear to be new since 01/30/18. Abdominal CT showed extensive bilateral pulmonary consolidating infiltrates containing some air bronchograms. A right femoral CVC was placed A critical care consult was placed. Patient was seen and examined. Vitals, labs, medications, chart and imaging were reviewed. History was obtained from review of the medical records and through the daughter and a translation service. The patient is Ukrainian speaking only Review of Systems: General: no fever, chills, night sweats, +weight loss, +poor appetite. Cutaneous: no rash, pruritus Head: no headaches or injury Eyes: no changes in vision, eye pain, double vision Ears: no ear pain, ear discharge, ringing or hearing loss Nose: no nose bleeding, stuffiness Mouth & throat: no bleeding gums, no hoarseness, no dental problems, or swollen glands Neck: no pain, node enlargement/lumps, thyroid enlargement or tenderness Respiratory: + cough, wheezing, +sputum,+ hemoptysis, no pleuritic chest pain Cardiovascular: no chest pain, leg edema, cyanosis, ROSENBAUM, orthopnea Musculoskeletal: no decreased joint motion, bone or joint pain, joint swelling, muscle aches Gastrointestinal: no nausea, vomiting, hematemesis, diarrhea, constipation, melena, bright red blood in stools, fecal incontinence, jaundice Genitourinary/Reproductive: no frequent urination, dysuria, hematuria, incontinence Neurogical: no seizures, no headaches, no weakness, no paresthesias, no loss of speech or vision; no memory loss, no vertigo, no tremors, no numbness Psychiatric: stable mood; no excessive anxiety, sadness or moodiness Medications and Allergies Allergies Allergy/AdvReac Type Severity Reaction Status Date / Time No Known Allergies Allergy Unverified 01/30/18 14:54 Home Medications Medication Instructions Recorded Confirmed Last Taken Type Folic Acid 1 tab PO QDAY #30 tab 01/30/18 Unknown Rx Folic Acid [Folvite] 1 mg PO QDAY #30 tablet 01/30/18 Unknown Rx Pantoprazole [Protonix TAB] 20 mg PO BID #60 tablet.dr 01/30/18 Unknown Rx Sucralfate [Carafate] 1 gm PO ACHS #30 tablet 01/30/18 Unknown Rx Thiamine [Vitamin B-1] 100 mg PO QDAY #30 tablet 01/30/18 Unknown Rx Active Meds: Active Medications Azithromycin 500 mg/ Sodium (Chloride) 250 mls @ 250 mls/hr IV Q24HR INDU; Protocol Last Admin: 01/28/19 15:56 Dose: 250 mls/hr Documented by: Norepinephrine (Levophed Drip 4 Mg/Ns 250 Ml) 4 mg in 250 mls @ 18.75 mls/hr IV TITR INDU; Protocol Last Titration: 01/29/19 08:33 Dose: 14 mcg/min, 52.5 mls/hr Documented by: Dextrose/Sodium Chloride (D5ns) 1,000 mls @ 125 mls/hr IV DIRECT INDU Last Admin: 01/29/19 06:20 Dose: 125 mls/hr Documented by: Cefepime HCl 0.5 gm/ Sodium (Chloride) 100 mls @ 200 mls/hr IV Q12HR INDU Last Admin: 01/28/19 23:21 Dose: 200 mls/hr Documented by: Morphine Sulfate (Morphine) 2 mg IV Q4H PRN PRN Reason: Pain, Moderate (4-6) Sodium Chloride (Sodium Chloride Flush Syringe 10 Ml) 10 ml IV BID INDU Last Admin: 01/28/19 22:41 Dose: 10 ml Documented by: Sodium Chloride (Sodium Chloride Flush Syringe 10 Ml) 10 ml IV PRN PRN PRN Reason: LINE FLUSH Physical Examination Vital signs: Vital Signs Pulse Ox 95 01/28/19 13:24 General appearance: Alert in mod respiratory distress, short sentences on BIPAP Tachypnea Eyes: anicteric sclerae, moist conjunctivae; no lid-lag; PERRLA HENT: Atraumatic; oropharynx limited BIPAP mask Neck: Trachea midline; supple, no thyromegaly or lymphadenopathy Lungs:Decreased AE bilaterally, Coarse breath sounds anteriorly CV:tachycardia, S1,S2 Abdomen: Soft, non-tender; no masses or hepatosplenomegaly Extremities: No peripheral edema or extremity lymphadenopathy Skin: Normal temperature, turgor and texture; no rash, ulcers or subcutaneous nodules Psych: no agitated Neuro: alert and oriented x 3. Moving all extremities Results - Laboratory Findings CBC and BMP: 01/30/19 12:00 01/30/19 04:15 ABG POC ABG pH 7.164 (7.35-7.45) L 01/28/19 15:17 POC ABG pCO2 48.5 (35-45) H 01/28/19 15:17 POC ABG pO2 60 (80-105) L 01/28/19 15:17 POC ABG HCO3 17.4 (22-26 mml/L) 01/28/19 15:17 POC ABG Total CO2 19 (23-27mmol/L) 01/28/19 15:17 POC ABG O2 Sat 83 01/28/19 15:17 PT/INR, D-dimer PT 19.0 Sec. (12.2-14.9) H 01/28/19 14:09 INR 1.49 (0.87-1.13) H 01/28/19 14:09 864.98 ng/mlDDU (0-234) H 01/28/19 14:09 Abnormal lab findings: Abnormal Labs 01/28/19 01/28/19 01/28/19 14:04 14:04 14:04 WBC 2.8 L RBC 3.58 L Hgb Hct MCV 102 H MCH 35 H RDW 16.1 H Plt Count 20 L Seg Neuts % (Manual) 75.0 H Lymphocytes % (Manual) 12.0 L Nucleated RBC % 1.0 H Lymphocytes # (Manual) 0.3 L PT INR D-Dimer POC ABG pH POC ABG pCO2 POC ABG pO2 Sodium 134 L Chloride 93.8 L Carbon Dioxide 17 L BUN 64 H Creatinine 4.8 H Glucose 57 L Lactic Acid 5.20 H* Calcium 7.0 L Total Bilirubin 2.70 H AST 146 H ALT Total Protein 5.7 L Albumin 2.1 L Urine WBC (Auto) 01/28/19 01/28/19 01/28/19 14:09 14:49 15:17 WBC RBC Hgb Hct MCV MCH RDW Plt Count Seg Neuts % (Manual) Lymphocytes % (Manual) Nucleated RBC % Lymphocytes # (Manual) PT 19.0 H INR 1.49 H D-Dimer 864.98 H POC ABG pH 7.164 L POC ABG pCO2 48.5 H POC ABG pO2 60 L Sodium Chloride Carbon Dioxide BUN Creatinine Glucose Lactic Acid 4.30 H* Calcium Total Bilirubin AST ALT Total Protein Albumin Urine WBC (Auto) 01/28/19 01/28/19 01/28/19 17:00 17:17 18:24 WBC RBC Hgb Hct MCV MCH RDW Plt Count Seg Neuts % (Manual) Lymphocytes % (Manual) Nucleated RBC % Lymphocytes # (Manual) PT INR D-Dimer POC ABG pH POC ABG pCO2 POC ABG pO2 Sodium Chloride Carbon Dioxide BUN Creatinine Glucose Lactic Acid 5.00 H* 4.50 H* Calcium Total Bilirubin AST ALT Total Protein Albumin Urine WBC (Auto) 11.0 H 01/28/19 01/29/19 01/29/19 22:45 04:49 04:49 WBC 15.1 H RBC 3.22 L Hgb 11.1 L Hct 33.1 L MCV 103 H MCH 35 H RDW 15.7 H Plt Count 16 L* Seg Neuts % (Manual) 15.0 L Lymphocytes % (Manual) 3.0 L Nucleated RBC % 6.0 H Lymphocytes # (Manual) 0.5 L PT INR D-Dimer POC ABG pH POC ABG pCO2 POC ABG pO2 Sodium 136 L Chloride Carbon Dioxide 14 L BUN 60 H Creatinine 2.2 H D Glucose 126 H Lactic Acid 4.00 H* Calcium 6.9 L Total Bilirubin 2.50 H AST 278 H ALT 69 H Total Protein 4.8 L Albumin 1.6 L Urine WBC (Auto) 01/29/19 01/29/19 04:49 05:27 WBC RBC Hgb Hct MCV MCH RDW Plt Count Seg Neuts % (Manual) Lymphocytes % (Manual) Nucleated RBC % Lymphocytes # (Manual) PT INR D-Dimer POC ABG pH POC ABG pCO2 POC ABG pO2 Sodium Chloride Carbon Dioxide BUN Creatinine Glucose Lactic Acid 3.30 H* 3.20 H* Calcium Total Bilirubin AST ALT Total Protein Albumin Urine WBC (Auto) Assessment and Plan Assessment: 53 y/o male with history of alcohol dependence, former smoker and gastroesophageal reflux disease admitted on 01/28/2019 sent from the primary care office for 3-week history of cough with hemoptysis and progressive shortness of breath, weight loss: 1) Severe Sepsis with septic shock: 4/4 positive blood cultures GPC in chains 2) Bilateral pneumonia: 3) Acute hypoxemic respiratory failure, ARDS 4) Elevated LFTs 5) Pancytopenia 6) CALVIN PLAN -ABGs -Antibiotics -Continue with NIPPV , discussed extensively with the daughters that if he continues to deteriorate he will need mechanical ventilatory support -CIWA protocol -SCDs for VTE prophylaxis -Stress ulcer prophylaxis -Accuchecks with glycemic control -Target blood glucose of 140-180 mg/dL -CXR in am -Vasopressor support as needed to keep MAP>65 -2D Echocardiogram, evaluate for pulmonary HTN, evaluate EF -Avoid nephrotoxics -Trend platelets and monitor for bleeding. Cytopenia could be from sepsis and chronic liver disease -Supportive transfusions as indicated fro HgB<7g/dL or platelets <10 Discussed with ID re care plan Discussed with daughters at the bedside ..care plan discussed at length with RN/RT at the bedside PROGNOSIS: GUARDED CONDITION: CRITICAL CODE STATUS: FULL CODE The high probability of a clinically significant, sudden or life-threatening deterioration of the [respiratory, neurology, renal] system(s) required my full and direct attention, intervention and personal management. The aggregate critical care time was [75] minutes without overlap. Time includes spent on; [x] Data Review and interpretation [x] Patient assessment and monitoring of vital signs [x] Documentation [x] Medication orders and management
--- NOTE | 2019-01-29 09:45 | Consultation ---
History of Present Illness - Reason for Consult Consult date: 01/29/19 septic shock Requesting physician: LAYLA MAI - History of Present Illness 53 y/o male with history of alcohol dependence and gastroesophageal reflux disease admitted on 01/28/2019 sent from the primary care office for 3-week history of cough with hemoptysis and progressive shortness of breath, found to have low oxygen saturation levels. Per daughter, patient has lost 5 L in 3 weeks. He has poor appetite. Denies any contacts with TB. Born in [place], came to [facility] 20+ years ago. He has never gone back since. He drinks alcohol. Denies drugs. Patient is not the best of the historians even when interview in [place]. In the ED< temp 98.3, HR 115, R 34, BP 77/48, oxygen sat 60% on room air. WBC 2.8. Hg 12.5. Plat 20. INR 1.4. Ddimer 864. Creat 4.8. Lactate 5.2. AST 146. UA negative. HIV rapid negative. Patient was kept on nonrebreather and multiple normal saline bolus boluses were given. Patient was then intuabted and started on pressors. CXR showed findings suggestive of mild CHF which appear to be new since 01/30/18. Abdominal CT showed extensive bilateral pulmonary consolidating infiltrates containing some air bronchograms. Review of Systems: General: no fever, chills, nightsweats, +weight loss, +poor appetite. Cutaneous: no rash, pruritus Head: no headaches or injury Eyes: no changes in vision, eye pain, double vision Ears: no ear pain, ear discharge, ringing or hearing loss Nose: no nose bleeding, stuffiness Mouth & throat: no bleeding gums, no horseness, no dental problems, or swollen glands Neck: no pain, node enlargement/lumps, tyroid enlargement or tenderness Respiratory: + cough, wheezing, +sputum,+ hemoptysis, no pleuritic chest pain Cardiovascular: no chest pain, leg edema, cyanosis, ROSEN[place]UM, orthopnea Musculoskeletal: no decreased joint motion, bone or joint pain, joint swelling, muscle aches Gastrointestinal: no nausea, vomiting, hematemesis, diarrhea, constipation, melena, bright red blood in stools, fecal incontinence, jaundice Genitourinary/Reproductive: no frequent urination, dysuria, hematuria, incontinence Neurogical: no seizures, no headaches, no weakness, no paresthesias, no loss of speech or vision; no memory loss, no vertigo, no tremors, no numbness Psychiatric: stable mood; no excessive anxiety, sadness or moodiness Medications and Allergies Allergies Allergy/AdvReac Type Severity Reaction Status Date / Time No Known Allergies Allergy Unverified 01/30/18 14:54 Home Medications Medication Instructions Recorded Confirmed Last Taken Type Folic Acid 1 tab PO QDAY #30 tab 01/30/18 Unknown Rx Folic Acid [Folvite] 1 mg PO QDAY #30 tablet 01/30/18 Unknown Rx Pantoprazole [Protonix TAB] 20 mg PO BID #60 tablet.dr 01/30/18 Unknown Rx Sucralfate [Carafate] 1 gm PO ACHS #30 tablet 01/30/18 Unknown Rx Thiamine [Vitamin B-1] 100 mg PO QDAY #30 tablet 01/30/18 Unknown Rx Active Meds: Active Medications Folic Acid (Folvite) 1 mg PO DAILY [facility] Azithromycin 500 mg/ Sodium (Chloride) 250 mls @ 250 mls/hr IV Q24HR [facility]; Protocol Last Admin: 01/28/19 15:56 Dose: 250 mls/hr Documented by: Norepinephrine (Levophed Drip 4 Mg/Ns 250 Ml) 4 mg in 250 mls @ 18.75 mls/hr IV TITR [facility]; Protocol Last Titration: 01/29/19 08:33 Dose: 14 mcg/min, 52.5 mls/hr Documented by: Cefepime HCl 0.5 gm/ Sodium (Chloride) 100 mls @ 200 mls/hr IV Q12HR [facility] Last Admin: 01/28/19 23:21 Dose: 200 mls/hr Documented by: Thiamine HCl 100 mg/Multivitamins/Minerals 10 ml/Folic Acid 1 mg/ Dextrose/Sodium Chloride 1,011.2 mls @ 125 mls/hr IV ONCE ONE Stop: 01/29/19 18:05 Morphine Sulfate (Morphine) 2 mg IV Q4H PRN PRN Reason: Pain, Moderate (4-6) Multivitamins/Minerals (Theragran-M Tab) 1 each PO QDAY [facility] Sodium Chloride (Sodium Chloride Flush Syringe 10 Ml) 10 ml IV BID [facility] Last Admin: 01/28/19 22:41 Dose: 10 ml Documented by: Sodium Chloride (Sodium Chloride Flush Syringe 10 Ml) 10 ml IV PRN PRN PRN Reason: LINE FLUSH Thiamine HCl (Vitamin B-1) 100 mg PO QDAY [facility] Physical Examination - Physical Exam Narrative exam: General appearance: Alert in mod resp distress, conversant on BIPAP Eyes: anicteric sclerae, moist conjunctivae; no lid-lag; PERRLA HENT: Atraumatic; oropharynx limited BIPAP mask Neck: Trachea midline; supple, no thyromegaly or lymphadenopathy Lungs: hal rhonchi and wheezing CV:tachy Abdomen: Soft, non-tender; no masses or hepatosplenomegaly Extremities: No peripheral edema or extremity lymphadenopathy Skin: Normal temperature, turgor and texture; no rash, ulcers or subcutaneous nodules Psych: no agitated Neuro: alert and oriented x 3. Moving all extermities - Constitutional Vitals: Vital Signs Temp Pulse Resp BP Pulse Ox 98.4 F 96 H 25 H 99/65 99 01/29/19 07:52 01/29/19 08:00 01/29/19 08:00 01/29/19 08:00 01/29/19 08:00 Temperature -Last 24 Hours Temperature 98.4 F Temperature 99.7 F Temperature 99.3 F Temperature 98.8 F Temperature 98.6 F Temperature 98.5 F Temperature 98.2 F Temperature 98.3 F Temperature 98.3 F Results - Labs CBC & Chem 7: 01/29/19 04:49 01/29/19 04:49 Labs: Abnormal lab results 01/28/19 01/28/19 01/28/19 Range/Units 14:04 14:04 14:04 WBC 2.8 L (4.5-11.0) K/mm3 RBC 3.58 L (3.65-5.03) M/mm3 Hgb (11.8-15.2) gm/dl Hct (35.5-45.6) % MCV 102 H (84-94) fl MCH 35 H (28-32) pg RDW 16.1 H (13.2-15.2) % Plt Count 20 L (140-440) K/mm3 Seg Neuts % (Manual) 75.0 H (40.0-70.0) % Lymphocytes % (Manual) 12.0 L (13.4-35.0) % Nucleated RBC % 1.0 H (0.0-0.9) % Lymphocytes # (Manual) 0.3 L (1.2-5.4) K/mm3 PT (12.2-14.9) Sec. INR (0.87-1.13) D-Dimer (0-234) ng/mlDDU POC ABG pH (7.35-7.45) POC ABG pCO2 (35-45) POC ABG pO2 (80-105) Sodium 134 L (137-145) mmol/L Chloride 93.8 L (98-107) mmol/L Carbon Dioxide 17 L (22-30) mmol/L BUN 64 H (9-20) mg/dL Creatinine 4.8 H (0.8-1.5) mg/dL Glucose 57 L (75-100) mg/dL Lactic Acid 5.20 H* (0.7-2.0) mmol/L Calcium 7.0 L (8.4-10.2) mg/dL Total Bilirubin 2.70 H (0.1-1.2) mg/dL AST 146 H (5-40) units/L ALT (7-56) units/L Total Protein 5.7 L (6.3-8.2) g/dL Albumin 2.1 L (3.9-5) g/dL Urine WBC (Auto) (0.0-6.0) /HPF 01/28/19 01/28/19 01/28/19 Range/Units 14:09 14:49 15:17 WBC (4.5-11.0) K/mm3 RBC (3.65-5.03) M/mm3 Hgb (11.8-15.2) gm/dl Hct (35.5-45.6) % MCV (84-94) fl MCH (28-32) pg RDW (13.2-15.2) % Plt Count (140-440) K/mm3 Seg Neuts % (Manual) (40.0-70.0) % Lymphocytes % (Manual) (13.4-35.0) % Nucleated RBC % (0.0-0.9) % Lymphocytes # (Manual) (1.2-5.4) K/mm3 PT 19.0 H (12.2-14.9) Sec. INR 1.49 H (0.87-1.13) D-Dimer 864.98 H (0-234) ng/mlDDU POC ABG pH 7.164 L (7.35-7.45) POC ABG pCO2 48.5 H (35-45) POC ABG pO2 60 L (80-105) Sodium (137-145) mmol/L Chloride (98-107) mmol/L Carbon Dioxide (22-30) mmol/L BUN (9-20) mg/dL Creatinine (0.8-1.5) mg/dL Glucose (75-100) mg/dL Lactic Acid 4.30 H* (0.7-2.0) mmol/L Calcium (8.4-10.2) mg/dL Total Bilirubin (0.1-1.2) mg/dL AST (5-40) units/L ALT (7-56) units/L Total Protein (6.3-8.2) g/dL Albumin (3.9-5) g/dL Urine WBC (Auto) (0.0-6.0) /HPF 01/28/19 01/28/19 01/28/19 Range/Units 17:00 17:17 18:24 WBC (4.5-11.0) K/mm3 RBC (3.65-5.03) M/mm3 Hgb (11.8-15.2) gm/dl Hct (35.5-45.6) % MCV (84-94) fl MCH (28-32) pg RDW (13.2-15.2) % Plt Count (140-440) K/mm3 Seg Neuts % (Manual) (40.0-70.0) % Lymphocytes % (Manual) (13.4-35.0) % Nucleated RBC % (0.0-0.9) % Lymphocytes # (Manual) (1.2-5.4) K/mm3 PT (12.2-14.9) Sec. INR (0.87-1.13) D-Dimer (0-234) ng/mlDDU POC ABG pH (7.35-7.45) POC ABG pCO2 (35-45) POC ABG pO2 (80-105) Sodium (137-145) mmol/L Chloride (98-107) mmol/L Carbon Dioxide (22-30) mmol/L BUN (9-20) mg/dL Creatinine (0.8-1.5) mg/dL Glucose (75-100) mg/dL Lactic Acid 5.00 H* 4.50 H* (0.7-2.0) mmol/L Calcium (8.4-10.2) mg/dL Total Bilirubin (0.1-1.2) mg/dL AST (5-40) units/L ALT (7-56) units/L Total Protein (6.3-8.2) g/dL Albumin (3.9-5) g/dL Urine WBC (Auto) 11.0 H (0.0-6.0) /HPF 01/28/19 01/29/19 01/29/19 Range/Units 22:45 04:49 04:49 WBC 15.1 H (4.5-11.0) K/mm3 RBC 3.22 L (3.65-5.03) M/mm3 Hgb 11.1 L (11.8-15.2) gm/dl Hct 33.1 L (35.5-45.6) % MCV 103 H (84-94) fl MCH 35 H (28-32) pg RDW 15.7 H (13.2-15.2) % Plt Count 16 L* (140-440) K/mm3 Seg Neuts % (Manual) 15.0 L (40.0-70.0) % Lymphocytes % (Manual) 3.0 L (13.4-35.0) % Nucleated RBC % 6.0 H (0.0-0.9) % Lymphocytes # (Manual) 0.5 L (1.2-5.4) K/mm3 PT (12.2-14.9) Sec. INR (0.87-1.13) D-Dimer (0-234) ng/mlDDU POC ABG pH (7.35-7.45) POC ABG pCO2 (35-45) POC ABG pO2 (80-105) Sodium 136 L (137-145) mmol/L Chloride (98-107) mmol/L Carbon Dioxide 14 L (22-30) mmol/L BUN 60 H (9-20) mg/dL Creatinine 2.2 H D (0.8-1.5) mg/dL Glucose 126 H (75-100) mg/dL Lactic Acid 4.00 H* (0.7-2.0) mmol/L Calcium 6.9 L (8.4-10.2) mg/dL Total Bilirubin 2.50 H (0.1-1.2) mg/dL AST 278 H (5-40) units/L ALT 69 H (7-56) units/L Total Protein 4.8 L (6.3-8.2) g/dL Albumin 1.6 L (3.9-5) g/dL Urine WBC (Auto) (0.0-6.0) /HPF 01/29/19 01/29/19 Range/Units 04:49 05:27 WBC (4.5-11.0) K/mm3 RBC (3.65-5.03) M/mm3 Hgb (11.8-15.2) gm/dl Hct (35.5-45.6) % MCV (84-94) fl MCH (28-32) pg RDW (13.2-15.2) % Plt Count (140-440) K/mm3 Seg Neuts % (Manual) (40.0-70.0) % Lymphocytes % (Manual) (13.4-35.0) % Nucleated RBC % (0.0-0.9) % Lymphocytes # (Manual) (1.2-5.4) K/mm3 PT (12.2-14.9) Sec. INR (0.87-1.13) D-Dimer (0-234) ng/mlDDU POC ABG pH (7.35-7.45) POC ABG pCO2 (35-45) POC ABG pO2 (80-105) Sodium (137-145) mmol/L Chloride (98-107) mmol/L Carbon Dioxide (22-30) mmol/L BUN (9-20) mg/dL Creatinine (0.8-1.5) mg/dL Glucose (75-100) mg/dL Lactic Acid 3.30 H* 3.20 H* (0.7-2.0) mmol/L Calcium (8.4-10.2) mg/dL Total Bilirubin (0.1-1.2) mg/dL AST (5-40) units/L ALT (7-56) units/L Total Protein (6.3-8.2) g/dL Albumin (3.9-5) g/dL Urine WBC (Auto) (0.0-6.0) /HPF Assessment and Plan Cultures: Blood culture 01/28/2019 no growth today Assessment: 53 y/o male with history of alcohol dependence, former smoker and gastroesophageal reflux disease admitted on 01/28/2019 sent from the primary care office for 3-week history of cough with hemoptysis and progressive shortness of breath, weight loss: 1) Severe Sepsis with septic shock: Present on admission, manifested by tachycardia, hypotension, neutropenia, increased lactate. Etiology most likely bilateral pneumonia. Lactate 5.2. UA negative. Blood culture 01/28/2019 no growth today. 2) Bilateral pneumonia: patient with alcohol abuse and GERD ? aspiration pneumonia v/s ? CAP v/s given that he was born in [place] and experiencing weight loss and hemoptysis, pulmonary TB should be ruled out. Per daughter, patient has lost 5 L in 3 weeks. He has poor appetite. HIV rapid negative.CXR showed findings suggestive of mild CHF which appear to be new since 01/30/18. Abdominal CT showed extensive bilateral pulmonary consolidating infiltrates containing some air bronchograms. 3) Acute hypoxemic respiratory failure: from pneumonia on BIPAP 4) Elevated LFTs: from ETOH hepatitis? +/- sepsis. AST 146. ? liver cirrhosis. 5) Pancytopenia: mainly neutropenia and thrombocytopenia ? liver cirrhosis. WBC 2.8. Hg 12.5. Plat 20. 6) CALVIN: ? renally adjusted all antibiotics Recommendations: - follow-up blood cultures - obtain regular sputum culture and AFBx 3 - airborne isolation for now - check Quantiferon TB-gold - TTE - obtain procalcitonin, C-reactive protein (CRP) - check Legionella urine antigen, Streptococcus pneumoniae urine antigen, Mycoplasma serology, Chlamydia pneumophila serology - continue azithromycin - continue cefepime - add flagyl Discussed with ICU staff Will follow. Dhara Hunter MD Infectious Diseases Supervisor [facility] M [phone] O [phone]
[2019-01-29] MEDS ORDERED: FOLVITE IV ONE (10:00)
[2019-01-29] MEDS ORDERED: VITAMIN B1 IV ONE (10:00)
[2019-01-29] MEDS ORDERED: D5NS IV ONE (10:00)
[2019-01-29] MEDS ORDERED: INFUVITE IV ONE (10:00)
--- NOTE | 2019-01-29 10:42 | Consultation ---
History of Present Illness - Reason for Consult Consult date: 01/29/19 acute renal failure - History of Present Illness The patient is a 53 Yo male with history significant for GERD, EtOH abuse, Alcoholic liver disease and Tobacco smoking who presented from Physician's office with shortness of breath and low oxygen saturation levels. History was obtained through his daughter at the bedside as patient speaks only [place]. Patient has not been feeling well for the past 2 weeks. Symptoms include, fever, chills, N, V, D, cough, sob, fatigue and weakness. Family called the EMS as the symptoms got progressively worse. On arrival to the ER he was hypotensive with BP around 70s/40s and his oxygen saturations were in 60% on room air. Patient received multiple normal saline bolus and was put on BiPAP. Currently he is in ICU. Creatinine was 4.8 yesterday, improved to 2.2 today. Nephrology was consulted for further evaluation. Past History Past Medical History: other (GERD, Alcohol liver disease) Medications and Allergies Allergies Allergy/AdvReac Type Severity Reaction Status Date / Time No Known Allergies Allergy Unverified 01/30/18 14:54 Home Medications Medication Instructions Recorded Confirmed Last Taken Type Folic Acid 1 tab PO QDAY #30 tab 01/30/18 Unknown Rx Folic Acid [Folvite] 1 mg PO QDAY #30 tablet 01/30/18 Unknown Rx Pantoprazole [Protonix TAB] 20 mg PO BID #60 tablet.dr 01/30/18 Unknown Rx Sucralfate [Carafate] 1 gm PO ACHS #30 tablet 01/30/18 Unknown Rx Thiamine [Vitamin B-1] 100 mg PO QDAY #30 tablet 01/30/18 Unknown Rx Active Meds: Active Medications Folic Acid (Folvite) 1 mg PO DAILY [facility] Azithromycin 500 mg/ Sodium (Chloride) 250 mls @ 250 mls/hr IV Q24HR [facility]; Protocol Last Admin: 01/28/19 15:56 Dose: 250 mls/hr Documented by: Norepinephrine (Levophed Drip 4 Mg/Ns 250 Ml) 4 mg in 250 mls @ 18.75 mls/hr IV TITR [facility]; Protocol Last Titration: 01/29/19 08:33 Dose: 14 mcg/min, 52.5 mls/hr Documented by: Cefepime HCl 0.5 gm/ Sodium (Chloride) 100 mls @ 200 mls/hr IV Q12HR [facility] Last Admin: 01/28/19 23:21 Dose: 200 mls/hr Documented by: Thiamine HCl 100 mg/Multivitamins/Minerals 10 ml/Folic Acid 1 mg/ Dextrose/Sodium Chloride 1,011.2 mls @ 125 mls/hr IV ONCE ONE Stop: 01/29/19 18:05 Metronidazole (Flagyl 500 Mg/100 Ml) 500 mg in 100 mls @ 100 mls/hr IV Q8HR [facility]; Protocol Morphine Sulfate (Morphine) 2 mg IV Q4H PRN PRN Reason: Pain, Moderate (4-6) Multivitamins/Minerals (Theragran-M Tab) 1 each PO QDAY [facility] Sodium Chloride (Sodium Chloride Flush Syringe 10 Ml) 10 ml IV BID [facility] Last Admin: 01/28/19 22:41 Dose: 10 ml Documented by: Sodium Chloride (Sodium Chloride Flush Syringe 10 Ml) 10 ml IV PRN PRN PRN Reason: LINE FLUSH Thiamine HCl (Vitamin B-1) 100 mg PO QDAY [facility] Review of Systems ROS unobtainable: due to mental status (Pt was on BIPAP) Exam - Vital Signs Vital signs: Vital Signs Pulse Ox 95 01/28/19 13:24 - General Appearance General appearance: well-developed, appears stated age, other (on BIPAP, appears tachypneic) EENT: ATNC, PERRL, hearing intact Neck: Present: neck supple, trachea midline Respiratory: Clear to Ascultation Heart: regular, S1S2, no murmurs Gastrointestinal: Present: normoactive bowel sounds. Absent: tenderness, distended Integumentary: no rash, warm and dry Neurologic: no focal deficit, no asterixis, alert and oriented x3 Musculoskeletal: Present: other (no edema) Psychiatric: cooperative Results - Lab Results 01/29/19 04:49 01/29/19 04:49 Most recent lab results Calcium 6.9 mg/dL (8.4-10.2) L 01/29/19 04:49 - Image Kidney/bladder ultrasound: other Assessment and Plan 1. Acute kidney injury: Vasomotor CALVIN in the setting of hypotension and volume depletion. Ct abdomen was negative for hydro. urine studies. S/p IV fluid boluses. Start IV fluids. Monitor renal function. Renal prognosis is guarded. Avoid nephrotoxic agents. Meds dosage based on GFR. 2. FEN: Volume depletion, IV fluids. Lactic acidosis, IV fluids. Monitor lytes. 3. Acute hypoxic Respiratory failure: On BIPAP. 4. Pneumonia: Followed by ID. 5. Sepsis with Shock: On Levophed. 6. Elevated LFTs. 7. Thrombocytopenia.
[2019-01-29] MEDS: MAXIPIME 0.5 GM in NACL 0.9% 100 ML IV SCH ×2 (10:45→22:02)
[2019-01-29] MEDS: SODIUM CHLORIDE FLUSH SYRINGE 10 ML IV SCH ×2 (10:45→22:09)
[2019-01-29] MEDS: ZITHROMAX 500 MG in NACL 0.9% 250ML 250 ML IV SCH (10:45)
[2019-01-29] MEDS ORDERED: VANCOMYCIN PHARMACY TO DOSE IV SCH (14:00)
[2019-01-29] MEDS: FLAGYL 500 MG/100 ML 500 MG/100 ML BAG IV SCH ×2 (14:11→22:02)
[2019-01-29 15:23] LABS: Hematocrit 31.9 % (35.5-45.6); Hemoglobin 10.6 gm/dl (11.8-15.2); Mean Corpuscular HGB Conc 33 % (32-34); Mean Corpuscular Volume 103 fl (84-94); Red Blood Count 3.09 M/mm3 (3.65-5.03); Red Cell Distribution Width 15.7 % (13.2-15.2)
[2019-01-29 15:29] LABS: Platelet Count 11 K/mm3 (140-440)
[2019-01-29 16:39] LABS: Creatinine,Urine 96.6 mg/dL (0.1-20.0)
--- NOTE | 2019-01-29 16:57 | Progress Note ---
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 / Septic shock with severe sepsis due to PNA, and bacteremia Levothroid and iv fluid / EtOH dependence CIWA protocol initiated / Bilateral pneumonia IV cefepime and vancomycin cont IV fluids, follow cx ID following /Septecimia - blood cx positive for GPC - cont abx per ID, ordered TTE /Ham, due to severe sepsis with vasomotor nephropathy - cont iv fluid, improving - nephro consult if renal function declines /Anemia with thrombocytopenia - due to alcohol abuse and severe sepsis - cont to trend, no heparin product /abnormal LFT - due to sepsis and alcoholic liver disease - cont to trend, hepatic US ordered, obtain acute hepatitis pannel / DVT prophylaxis SCD The high probability of a clinically significant, sudden or life threatening deterioration of the [multiple] system(s) required my full and direct attention, intervention and personal management. The aggregate critical care time was [35] minutes. This time is in addition to time spent performing reported procedures but includes the following: [x] Data Review and interpretation [x] Patient assessment and monitoring of vital signs [x] Documentation [x] Medication orders and management Brief History: 53-year-old male with history of gastroesophageal reflux disease and EtOH dependence sent from the primary care office for cough shortness of breath and low oxygen saturation levels. On arrival in the emergency room patient was hypotensive and his oxygen saturations were 60% on room air. Patient was kept on nonrebreather and multiple normal saline bolus boluses were given. Patient was placed on levophed, started on abx for b/l PNA and admitted to ICU. Radiological data: CT abdomen and pelvis IMPRESSION: Severe bilateral pulmonary infiltrates likely reflecting pneumonia. No acute intra-abdominal findings on noncontrast CT This document is electronically signed by Alessio Parry MD., Jan 28 2019 05:09:26 PM ET Chest x-ray IMPRESSION: Finding suggestive of mild CHF which appear to be new since 01/30/18. Bibasilar atelectatic changes. Hospitalist Physical exam: GENERAL: well-developed male lying on bed appeared to be in no discomfort. HEENT: Normocephalic. Atraumatic. No conjunctival congestion or icterus. Patient has moist mucous membranes. NECK: Supple. Trachea midline. CHEST/LUNGS: coarse BS auscultated bilaterally, breathing nonlabored. HEART/CARDIOVASCULAR: tachycardic. S1 and S2 positive. ABDOMEN: Abdomen is soft, nontender. Patient has normal bowel sounds. SKIN: There is no rash. Warm and dry. NEURO: No focal motor deficit. Follows command. MUSCULOSKELETAL: No joint effusion or tenderness. EXTRIMITY: No edema, no cyanosis or clubbing. PSYCH: Cooperative. Subjective Date of service: 01/29/19 Interval history: patient seen and examined Off bipap this am, still on levophed c/o sob on minimal exertion family at bedside, updated with lamina searcher Objective - Constitutional Vitals: Vital Signs - 12hr 01/29/19 01/29/19 01/29/19 05:00 05:15 05:25 Temperature Pulse Rate 104 H 102 H 105 H Pulse Rate [ From Monitor] Respiratory 29 H 32 H 34 H Rate Blood Pressure 103/62 107/66 98/67 O2 Sat by Pulse 96 97 97 Oximetry 01/29/19 01/29/19 01/29/19 05:30 05:45 06:00 Temperature Pulse Rate 104 H 102 H 105 H Pulse Rate [ From Monitor] Respiratory 33 H 24 32 H Rate Blood Pressure 112/66 106/64 106/63 O2 Sat by Pulse 97 99 96 Oximetry 01/29/19 01/29/19 01/29/19 06:15 06:30 06:45 Temperature Pulse Rate 99 H 106 H 102 H Pulse Rate [ From Monitor] Respiratory 26 H 33 H 36 H Rate Blood Pressure 105/65 105/68 101/61 O2 Sat by Pulse 98 98 95 Oximetry 01/29/19 01/29/19 01/29/19 07:00 07:15 07:30 Temperature Pulse Rate 101 H 102 H 101 H Pulse Rate [ From Monitor] Respiratory 29 H 30 H 30 H Rate Blood Pressure 100/53 106/62 102/64 O2 Sat by Pulse 99 98 99 Oximetry 01/29/19 01/29/19 01/29/19 07:45 07:52 08:00 Temperature 98.4 F Pulse Rate 101 H 96 H Pulse Rate [ 96 H From Monitor] Respiratory 28 H 25 H Rate Blood Pressure 108/66 99/65 O2 Sat by Pulse 99 99 Oximetry 01/29/19 01/29/19 01/29/19 08:15 08:30 08:45 Temperature Pulse Rate 106 H 101 H Pulse Rate [ From Monitor] Respiratory 35 H 42 H 33 H Rate Blood Pressure 104/61 119/91 120/46 O2 Sat by Pulse 97 95 97 Oximetry 01/29/19 01/29/19 01/29/19 09:01 09:15 09:30 Temperature Pulse Rate 118 H 103 H 101 H Pulse Rate [ From Monitor] Respiratory 31 H 41 H 38 H Rate Blood Pressure 120/46 99/61 102/64 O2 Sat by Pulse 90 94 95 Oximetry 01/29/19 01/29/19 01/29/19 09:45 10:00 10:15 Temperature Pulse Rate 97 H 101 H 100 H Pulse Rate [ From Monitor] Respiratory 30 H 41 H 37 H Rate Blood Pressure 103/65 102/63 87/48 O2 Sat by Pulse 98 97 95 Oximetry 01/29/19 01/29/19 01/29/19 10:30 10:45 11:00 Temperature Pulse Rate 99 H 92 H 93 H Pulse Rate [ From Monitor] Respiratory 41 H 37 H 32 H Rate Blood Pressure 90/54 95/60 97/63 O2 Sat by Pulse 97 98 98 Oximetry 01/29/19 01/29/19 01/29/19 11:15 11:30 11:45 Temperature Pulse Rate 94 H 93 H 97 H Pulse Rate [ From Monitor] Respiratory 33 H 34 H 32 H Rate Blood Pressure 97/62 100/58 90/59 O2 Sat by Pulse 97 99 100 Oximetry 01/29/19 01/29/19 01/29/19 12:00 12:15 12:30 Temperature 98.7 F Pulse Rate 103 H 100 H 102 H Pulse Rate [ 103 H From Monitor] Respiratory 40 H 31 H 42 H Rate Blood Pressure 96/57 83/52 90/56 O2 Sat by Pulse 99 99 100 Oximetry 01/29/19 01/29/19 01/29/19 12:34 12:45 13:00 Temperature Pulse Rate 101 H Pulse Rate [ From Monitor] Respiratory 31 H Rate Blood Pressure 96/57 83/52 93/58 O2 Sat by Pulse 95 97 97 Oximetry 01/29/19 01/29/19 01/29/19 13:15 13:30 13:45 Temperature Pulse Rate Pulse Rate [ From Monitor] Respiratory Rate Blood Pressure 100/62 96/61 97/62 O2 Sat by Pulse 98 99 98 Oximetry 01/29/19 01/29/19 01/29/19 14:00 14:04 14:15 Temperature Pulse Rate 111 H 111 H Pulse Rate [ From Monitor] Respiratory 21 Rate Blood Pressure 104/62 95/58 O2 Sat by Pulse 89 93 93 Oximetry 01/29/19 01/29/19 01/29/19 14:30 14:45 15:00 Temperature Pulse Rate 114 H 119 H 116 H Pulse Rate [ From Monitor] Respiratory 38 H 30 H 41 H Rate Blood Pressure 96/58 96/58 103/51 O2 Sat by Pulse 92 89 90 Oximetry 01/29/19 01/29/19 01/29/19 15:15 15:30 16:00 Temperature 98.1 F Pulse Rate 117 H 117 H Pulse Rate [ From Monitor] Respiratory 26 H 34 H Rate Blood Pressure 103/54 99/64 O2 Sat by Pulse 88 88 Oximetry - Labs CBC & Chem 7: 01/29/19 15:05 01/30/19 04:15 Labs: Abnormal lab results 01/28/19 01/28/19 01/28/19 Range/Units 17:00 17:17 18:24 WBC (4.5-11.0) K/mm3 RBC (3.65-5.03) M/mm3 Hgb (11.8-15.2) gm/dl Hct (35.5-45.6) % MCV (84-94) fl MCH (28-32) pg RDW (13.2-15.2) % Plt Count (140-440) K/mm3 Seg Neuts % (Manual) (40.0-70.0) % Lymphocytes % (Manual) (13.4-35.0) % Nucleated RBC % (0.0-0.9) % Lymphocytes # (Manual) (1.2-5.4) K/mm3 Sodium (137-145) mmol/L Carbon Dioxide (22-30) mmol/L BUN (9-20) mg/dL Creatinine (0.8-1.5) mg/dL Glucose (75-100) mg/dL Lactic Acid 5.00 H* 4.50 H* (0.7-2.0) mmol/L Calcium (8.4-10.2) mg/dL Total Bilirubin (0.1-1.2) mg/dL AST (5-40) units/L ALT (7-56) units/L C-Reactive Protein (0.00-1.30) mg/dL Total Protein (6.3-8.2) g/dL Albumin (3.9-5) g/dL Urine WBC (Auto) 11.0 H (0.0-6.0) /HPF Urine Creatinine (0.1-20.0) mg/dL 01/28/19 01/29/19 01/29/19 Range/Units 22:45 04:49 04:49 WBC 15.1 H (4.5-11.0) K/mm3 RBC 3.22 L (3.65-5.03) M/mm3 Hgb 11.1 L (11.8-15.2) gm/dl Hct 33.1 L (35.5-45.6) % MCV 103 H (84-94) fl MCH 35 H (28-32) pg RDW 15.7 H (13.2-15.2) % Plt Count 16 L* (140-440) K/mm3 Seg Neuts % (Manual) 15.0 L (40.0-70.0) % Lymphocytes % (Manual) 3.0 L (13.4-35.0) % Nucleated RBC % 6.0 H (0.0-0.9) % Lymphocytes # (Manual) 0.5 L (1.2-5.4) K/mm3 Sodium 136 L (137-145) mmol/L Carbon Dioxide 14 L (22-30) mmol/L BUN 60 H (9-20) mg/dL Creatinine 2.2 H D (0.8-1.5) mg/dL Glucose 126 H (75-100) mg/dL Lactic Acid 4.00 H* (0.7-2.0) mmol/L Calcium 6.9 L (8.4-10.2) mg/dL Total Bilirubin 2.50 H (0.1-1.2) mg/dL AST 278 H (5-40) units/L ALT 69 H (7-56) units/L C-Reactive Protein (0.00-1.30) mg/dL Total Protein 4.8 L (6.3-8.2) g/dL Albumin 1.6 L (3.9-5) g/dL Urine WBC (Auto) (0.0-6.0) /HPF Urine Creatinine (0.1-20.0) mg/dL 01/29/19 01/29/19 01/29/19 Range/Units 04:49 04:49 05:27 WBC (4.5-11.0) K/mm3 RBC (3.65-5.03) M/mm3 Hgb (11.8-15.2) gm/dl Hct (35.5-45.6) % MCV (84-94) fl MCH (28-32) pg RDW (13.2-15.2) % Plt Count (140-440) K/mm3 Seg Neuts % (Manual) (40.0-70.0) % Lymphocytes % (Manual) (13.4-35.0) % Nucleated RBC % (0.0-0.9) % Lymphocytes # (Manual) (1.2-5.4) K/mm3 Sodium (137-145) mmol/L Carbon Dioxide (22-30) mmol/L BUN (9-20) mg/dL Creatinine (0.8-1.5) mg/dL Glucose (75-100) mg/dL Lactic Acid 3.30 H* 3.20 H* (0.7-2.0) mmol/L Calcium (8.4-10.2) mg/dL Total Bilirubin (0.1-1.2) mg/dL AST (5-40) units/L ALT (7-56) units/L C-Reactive Protein 12.80 H (0.00-1.30) mg/dL Total Protein (6.3-8.2) g/dL Albumin (3.9-5) g/dL Urine WBC (Auto) (0.0-6.0) /HPF Urine Creatinine (0.1-20.0) mg/dL 01/29/19 01/29/19 Range/Units 10:50 15:05 WBC 26.5 H (4.5-11.0) K/mm3 RBC 3.09 L (3.65-5.03) M/mm3 Hgb 10.6 L (11.8-15.2) gm/dl Hct 31.9 L (35.5-45.6) % MCV 103 H (84-94) fl MCH 34 H (28-32) pg RDW 15.7 H (13.2-15.2) % Plt Count 11 L* (140-440) K/mm3 Seg Neuts % (Manual) (40.0-70.0) % Lymphocytes % (Manual) (13.4-35.0) % Nucleated RBC % (0.0-0.9) % Lymphocytes # (Manual) (1.2-5.4) K/mm3 Sodium (137-145) mmol/L Carbon Dioxide (22-30) mmol/L BUN (9-20) mg/dL Creatinine (0.8-1.5) mg/dL Glucose (75-100) mg/dL Lactic Acid (0.7-2.0) mmol/L Calcium (8.4-10.2) mg/dL Total Bilirubin (0.1-1.2) mg/dL AST (5-40) units/L ALT (7-56) units/L C-Reactive Protein (0.00-1.30) mg/dL Total Protein (6.3-8.2) g/dL Albumin (3.9-5) g/dL Urine WBC (Auto) (0.0-6.0) /HPF Urine Creatinine 96.6 H (0.1-20.0) mg/dL
[2019-01-29] MEDS: ROBITUSSIN PO PRN ×2 (21:41→22:08)
[2019-01-29] MEDS: NACL 0.9% 1000 ML 1,000 ML IV SCH (21:41)
[2019-01-29] MEDS: MUCINEX ER PO SCH (22:10)
[2019-01-30 04:53] LABS: Albumin 1.7 g/dL (3.9-5); Calcium 7.6 mg/dL (8.4-10.2)
[2019-01-30] MEDS: FLAGYL 500 MG/100 ML 500 MG/100 ML BAG IV SCH ×2 (05:45→13:18)
[2019-01-30] MEDS: NACL 0.9% 1000 ML 1,000 ML IV SCH (06:12)
--- NOTE | 2019-01-30 08:34 | Progress Note ---
Assessment and Plan 1. Acute kidney injury: Vasomotor CALVIN in the setting of hypotension and volume depletion. Ct abdomen was negative for hydro. Continue IV fluids. Renal function is much better and close to normal. Monitor renal function. Avoid nephrotoxic agents. Meds dosage based on GFR. 2. FEN: Volume depletion, IV fluids. Lactic acidosis, IV fluids. Monitor lytes. 3. Acute hypoxic Respiratory failure: On BIPAP. 4. Pneumonia: Followed by ID. 5. Sepsis with Shock: On Levophed. 6. Elevated LFTs. 7. Thrombocytopenia. Subjective Date of service: 01/30/19 Interval history: Patient was seen and examined at the bedside. Objective - Vital Signs Vital signs: Vital Signs - 12hr 01/29/19 01/29/19 01/29/19 20:45 21:00 21:15 Temperature Pulse Rate 119 H 120 H 118 H Pulse Rate [ From Monitor] Respiratory 37 H 28 H 32 H Rate Blood Pressure 98/67 97/64 115/61 O2 Sat by Pulse 86 88 88 Oximetry 01/29/19 01/29/19 01/29/19 21:30 21:45 22:00 Temperature Pulse Rate 118 H 117 H 120 H Pulse Rate [ From Monitor] Respiratory 29 H 34 H 43 H Rate Blood Pressure 122/60 109/64 112/69 O2 Sat by Pulse 89 89 85 Oximetry 01/29/19 01/29/19 01/29/19 22:15 22:30 22:45 Temperature Pulse Rate 117 H 118 H 118 H Pulse Rate [ From Monitor] Respiratory 26 H 26 H 40 H Rate Blood Pressure 119/61 97/38 99/45 O2 Sat by Pulse 89 89 87 Oximetry 01/29/19 01/29/19 01/29/19 23:00 23:15 23:30 Temperature Pulse Rate 116 H 122 H 118 H Pulse Rate [ From Monitor] Respiratory 34 H 30 H 32 H Rate Blood Pressure 109/70 109/70 116/68 O2 Sat by Pulse 89 88 Oximetry 01/29/19 01/29/19 01/30/19 23:45 23:56 00:00 Temperature 98.7 F Pulse Rate 117 H 117 H Pulse Rate [ 118 H From Monitor] Respiratory 33 H 37 H Rate Blood Pressure 118/71 105/53 O2 Sat by Pulse 90 91 Oximetry 01/30/19 01/30/19 01/30/19 00:15 00:30 00:45 Temperature Pulse Rate 115 H 118 H 116 H Pulse Rate [ From Monitor] Respiratory 32 H 26 H 33 H Rate Blood Pressure 98/61 101/51 102/56 O2 Sat by Pulse 89 90 89 Oximetry 01/30/19 01/30/19 01/30/19 01:00 01:15 01:30 Temperature Pulse Rate 117 H 118 H 116 H Pulse Rate [ From Monitor] Respiratory 30 H 35 H 31 H Rate Blood Pressure 116/74 97/52 98/54 O2 Sat by Pulse 87 86 87 Oximetry 01/30/19 01/30/19 01/30/19 01:45 02:00 02:15 Temperature Pulse Rate 112 H 111 H 108 H Pulse Rate [ From Monitor] Respiratory 33 H 43 H 34 H Rate Blood Pressure 110/71 110/73 112/69 O2 Sat by Pulse 93 93 94 Oximetry 01/30/19 01/30/19 01/30/19 02:30 02:45 03:00 Temperature Pulse Rate 109 H 109 H 110 H Pulse Rate [ From Monitor] Respiratory 39 H 33 H 36 H Rate Blood Pressure 107/66 116/72 112/72 O2 Sat by Pulse 93 93 93 Oximetry 01/30/19 01/30/19 01/30/19 03:15 03:30 03:45 Temperature Pulse Rate 108 H 112 H 109 H Pulse Rate [ From Monitor] Respiratory 38 H 38 H 39 H Rate Blood Pressure 112/69 113/73 108/71 O2 Sat by Pulse 93 91 92 Oximetry 01/30/19 01/30/19 01/30/19 04:00 04:01 04:15 Temperature 98.5 F Pulse Rate 116 H 111 H Pulse Rate [ 112 H From Monitor] Respiratory 35 H 37 H 40 H Rate Blood Pressure 107/56 115/65 O2 Sat by Pulse 93 90 90 Oximetry 01/30/19 01/30/19 01/30/19 04:31 04:45 05:00 Temperature Pulse Rate 116 H 113 H 109 H Pulse Rate [ From Monitor] Respiratory 43 H 38 H 35 H Rate Blood Pressure 111/68 118/72 119/62 O2 Sat by Pulse 69 L 91 91 Oximetry 01/30/19 01/30/19 01/30/19 05:15 05:31 05:45 Temperature Pulse Rate 113 H 114 H 115 H Pulse Rate [ From Monitor] Respiratory 39 H 34 H 33 H Rate Blood Pressure 122/72 122/72 129/72 O2 Sat by Pulse 90 82 L 81 L Oximetry 01/30/19 01/30/19 01/30/19 06:00 06:15 06:30 Temperature Pulse Rate 112 H 111 H 112 H Pulse Rate [ From Monitor] Respiratory 47 H 40 H 41 H Rate Blood Pressure 133/80 123/72 113/65 O2 Sat by Pulse 87 88 88 Oximetry 01/30/19 01/30/19 01/30/19 06:45 07:01 07:15 Temperature Pulse Rate 114 H 115 H 114 H Pulse Rate [ From Monitor] Respiratory 39 H 44 H 34 H Rate Blood Pressure 118/72 112/59 112/59 O2 Sat by Pulse 74 L 88 89 Oximetry 01/30/19 01/30/19 01/30/19 07:30 07:45 08:00 Temperature 98.8 F Pulse Rate 118 H 111 H 106 H Pulse Rate [ 106 H From Monitor] Respiratory 46 H 46 H 49 H Rate Blood Pressure 112/73 109/73 117/76 O2 Sat by Pulse 87 88 70 L Oximetry - General Appearance General appearance: well-developed, well-nourished, appears stated age, other (on BIPAP) EENT: ATNC Neck: supple Respiratory: Present: Other (corase breath sounds) Cardiology: regular, tachycardia, S1S2 Gastrointestinal: normoactive bowel sounds, no tenderness, no distended Integumentary: no rash Neurologic: other (alert) Musculoskeletal: other (no edema) - Lab 01/30/19 12:00 01/30/19 04:15 Most recent lab results Calcium 7.6 mg/dL (8.4-10.2) L 01/30/19 04:15 96.6 mg/dL (0.1-20.0) H 01/29/19 10:50 10 mmol/L 01/29/19 10:50 Medications & Allergies - Medications Allergies/Adverse Reactions: Allergies No Known Allergies Allergy (Unverified 01/30/18 14:54) Home Medications: Home Medications Medication Instructions Recorded Confirmed Last Taken Type Folic Acid 1 tab PO QDAY #30 tab 01/30/18 Unknown Rx Folic Acid [Folvite] 1 mg PO QDAY #30 tablet 01/30/18 Unknown Rx Pantoprazole [Protonix TAB] 20 mg PO BID #60 tablet. 01/30/18 Unknown Rx Sucralfate [Carafate] 1 gm PO ACHS #30 tablet 01/30/18 Unknown Rx Thiamine [Vitamin B-1] 100 mg PO QDAY #30 tablet 01/30/18 Unknown Rx Active Medications: Generic Name Dose Route Start Last Admin Trade Name Freq PRN Reason Stop Dose Admin Folic Acid 1 mg 01/30/19 10:00 Folvite PO DAILY INDU Guaifenesin 200 mg 01/29/19 19:08 01/29/19 22:08 Robitussin PO 200 mg Q4H PRN Administration Cough Guaifenesin 600 mg 01/29/19 22:00 01/29/19 22:10 Mucinex Er PO 600 mg BID INDU Administration Azithromycin 500 mg/ Sodium 250 mls @ 250 mls/hr 01/28/19 16:00 01/29/19 10:45 Chloride IV 250 mls/hr Q24HR INDU Administration Protocol Norepinephrine 4 mg in 250 mls @ 18.75 mls/hr 01/28/19 18:05 01/30/19 06:15 Levophed Drip 4 Mg/Ns 250 Ml IV 0 mcg/min TITR INDU 0 mls/hr Titration Protocol 5 MCG/MIN Metronidazole 500 mg in 100 mls @ 100 mls/hr 01/29/19 14:00 01/30/19 05:45 Flagyl 500 Mg/100 Ml IV 100 mls/hr Q8HR INDU Administration Protocol Sodium Chloride 1,000 mls @ 125 mls/hr 01/29/19 14:00 01/30/19 06:12 Nacl 0.9% 1000 Ml IV 125 mls/hr DIRECT INDU Administration Cefepime HCl 2 gm in 100 mls @ 200 mls/hr 01/30/19 10:00 Maxipime/Ns 2 Gm/100 Ml IV Q12HR INDU Vancomycin HCl 1 gm in 250 mls @ 167.007 mls/hr 01/30/19 10:00 Vancomycin/Ns 1 Gm/250 Ml IV Q24HR INDU Morphine Sulfate 2 mg 01/28/19 18:36 01/30/19 07:33 Morphine IV 2 mg Q4H PRN Administration Pain, Moderate (4-6) Multivitamins/Minerals 1 each 01/30/19 10:00 Theragran-M Tab PO QDAY INDU Sodium Chloride 10 ml 01/28/19 22:00 01/29/19 22:09 Sodium Chloride Flush Syringe 10 Ml IV 10 ml BID INDU Administration Sodium Chloride 10 ml 01/28/19 18:36 Sodium Chloride Flush Syringe 10 Ml IV PRN PRN LINE FLUSH Thiamine HCl 100 mg 01/30/19 10:00 Vitamin B-1 PO QDAY INDU
--- NOTE | 2019-01-30 09:44 | XRay Report ---
AP CHEST: HISTORY: Acute hypoxic respiratory failure Extensive bilateral perihilar infiltrates have developed since 01/28/19. This probably represents pulmonary edema although bilateral pneumonia/aspiration could be considered. No large pleural effusion or pneumothorax has developed. Heart size appears mildly increased. IMPRESSION: Extensive bilateral infiltrates have developed. Pulmonary edema versus pneumonia/aspiration.
[2019-01-30] MEDS ORDERED: LASIX IV ONE (10:00)
[2019-01-30] MEDS ORDERED: MAXIPIME/NS 2 GM/100 ML 2 GM/100 ML BAG IV SCH (10:00)
[2019-01-30] MEDS ORDERED: THERAGRAN-M Tab PO SCH (10:00)
[2019-01-30] MEDS ORDERED: SUBLIMAZE ONE (10:09)
[2019-01-30] MEDS ORDERED: SUBLIMAZE IV ONE (10:23)
[2019-01-30] MEDS ORDERED: QUELICIN IV ONE (10:29)
[2019-01-30] MEDS: ZITHROMAX 500 MG in NACL 0.9% 250ML 250 ML IV SCH (10:33)
[2019-01-30] MEDS: VANCOMYCIN/NS 1 GM/250 ML 1 GM/250 ML BAG IV SCH (10:34)
--- NOTE | 2019-01-30 10:34 | Progress Note ---
Assessment and Plan Assessment: 53 y/o male with history of alcohol dependence, former smoker and gastroesophageal reflux disease admitted on 01/28/2019 sent from the primary care office for 3-week history of cough with hemoptysis and progressive shortness of breath, weight loss: 1) Severe Sepsis with septic shock: 4/4 positive blood cultures GPC in chains 2) Bilateral pneumonia: 3) Acute hypoxemic respiratory failure, ARDS 4) Elevated LFTs 5) Pancytopenia 6) CALVIN PLAN -ABGs, now -Orally intubate, discussed extensively with the patient and his daughters/son -Antibiotics -CIWA protocol -SCDs for VTE prophylaxis -Stress ulcer prophylaxis -Accuchecks with glycemic control -Target blood glucose of 140-180 mg/dL -CXR in post incubation -Vasopressor support as needed to keep MAP>65 -2D Echocardiogram, evaluate for pulmonary HTN, evaluate EF -Avoid nephrotoxics -Trend platelets and monitor for bleeding. Cytopenia could be from sepsis and chronic liver disease -Supportive transfusions as indicated for HgB<7g/dL or platelets <10 -Once intubated, lung protective strategies -Place OGT -Lung protective strategies -Aspiration precautions -Enteric nutrition once OGT placement is confirmed -Continue antibiotics -2D echocardiogram pending -Change femoral central venous catheter to a line above the diaphragm -Follow cultures Discussed with daughters at the bedside ..care plan discussed at length with RN/RT at the bedside PROGNOSIS: GUARDED CONDITION: CRITICAL CODE STATUS: FULL CODE The high probability of a clinically significant, sudden or life-threatening deterioration of the [respiratory, cardiovascular, renal, hematologic] system(s) required my full and direct attention, intervention and personal management. The aggregate critical care time was [45] minutes without overlap. Time includes spent on; [x] Data Review and interpretation [x] Patient assessment and monitoring of vital signs [x] Documentation [x] Medication orders and management Subjective Date of service: 01/30/19 Interval history: Patient is seen today for: Acute Hypoxemic Respiratory Failure; ARDS; Severe Sepsis; Acute Kidney Injury; Abnormal CXR; pancytopenia; acute metabolic encephaloapthy Seen and examined at bedside; 24-hour events reviewed; nursing and respiratory care staff consulted; requiring vasopressor support, has been on continuous BIPAP with oxygen saturations in the 80s, tacyhpnic to the 40s. Daughters state that he has been delirious all night. Seen and examined. Vitals, labs, medications, chart and imaging reviewed Used translation service to communicate with the patient and the family Objective - Exam Narrative Exam: General appearance: severe respiratory distress, on BIPAP, use of accessory muscles Eyes: anicteric sclerae, moist conjunctivae; no lid-lag; PERRLA , EOMI HENT: Atraumatic; normocephalic, Neck: Trachea midline; supple, no thyromegaly or lymphadenopathy Lungs: hal rhonchi and wheezing CV:tachycardia, S1,S2, no murmurs Abdomen: Soft, non-tender; no masses or hepatosplenomegaly Right femoral CVC Extremities: No peripheral edema or extremity lymphadenopathy Skin: Normal temperature, turgor and texture; no rash, ulcers or subcutaneous nodules Psych:agitated Vital Signs - 12hr 01/29/19 01/29/19 01/29/19 22:45 23:00 23:15 Temperature Pulse Rate 118 H 116 H 122 H Pulse Rate [ From Monitor] Respiratory 40 H 34 H 30 H Rate Blood Pressure 99/45 109/70 109/70 O2 Sat by Pulse 87 89 Oximetry 01/29/19 01/29/19 01/29/19 23:30 23:45 23:56 Temperature 98.7 F Pulse Rate 118 H 117 H Pulse Rate [ From Monitor] Respiratory 32 H 33 H Rate Blood Pressure 116/68 118/71 O2 Sat by Pulse 88 90 Oximetry 01/30/19 01/30/19 01/30/19 00:00 00:15 00:30 Temperature Pulse Rate 117 H 115 H 118 H Pulse Rate [ 118 H From Monitor] Respiratory 37 H 32 H 26 H Rate Blood Pressure 105/53 98/61 101/51 O2 Sat by Pulse 91 89 90 Oximetry 01/30/19 01/30/19 01/30/19 00:45 01:00 01:15 Temperature Pulse Rate 116 H 117 H 118 H Pulse Rate [ From Monitor] Respiratory 33 H 30 H 35 H Rate Blood Pressure 102/56 116/74 97/52 O2 Sat by Pulse 89 87 86 Oximetry 01/30/19 01/30/19 01/30/19 01:30 01:45 02:00 Temperature Pulse Rate 116 H 112 H 111 H Pulse Rate [ From Monitor] Respiratory 31 H 33 H 43 H Rate Blood Pressure 98/54 110/71 110/73 O2 Sat by Pulse 87 93 93 Oximetry 01/30/19 01/30/19 01/30/19 02:15 02:30 02:45 Temperature Pulse Rate 108 H 109 H 109 H Pulse Rate [ From Monitor] Respiratory 34 H 39 H 33 H Rate Blood Pressure 112/69 107/66 116/72 O2 Sat by Pulse 94 93 93 Oximetry 01/30/19 01/30/19 01/30/19 03:00 03:15 03:30 Temperature Pulse Rate 110 H 108 H 112 H Pulse Rate [ From Monitor] Respiratory 36 H 38 H 38 H Rate Blood Pressure 112/72 112/69 113/73 O2 Sat by Pulse 93 93 91 Oximetry 01/30/19 01/30/19 01/30/19 03:45 04:00 04:01 Temperature 98.5 F Pulse Rate 109 H 116 H Pulse Rate [ 112 H From Monitor] Respiratory 39 H 35 H 37 H Rate Blood Pressure 108/71 107/56 O2 Sat by Pulse 92 93 90 Oximetry 01/30/19 01/30/19 01/30/19 04:15 04:31 04:45 Temperature Pulse Rate 111 H 116 H 113 H Pulse Rate [ From Monitor] Respiratory 40 H 43 H 38 H Rate Blood Pressure 115/65 111/68 118/72 O2 Sat by Pulse 90 69 L 91 Oximetry 01/30/19 01/30/19 01/30/19 05:00 05:15 05:31 Temperature Pulse Rate 109 H 113 H 114 H Pulse Rate [ From Monitor] Respiratory 35 H 39 H 34 H Rate Blood Pressure 119/62 122/72 122/72 O2 Sat by Pulse 91 90 82 L Oximetry 01/30/19 01/30/19 01/30/19 05:45 06:00 06:15 Temperature Pulse Rate 115 H 112 H 111 H Pulse Rate [ From Monitor] Respiratory 33 H 47 H 40 H Rate Blood Pressure 129/72 133/80 123/72 O2 Sat by Pulse 81 L 87 88 Oximetry 01/30/19 01/30/19 01/30/19 06:30 06:45 07:01 Temperature Pulse Rate 112 H 114 H 115 H Pulse Rate [ From Monitor] Respiratory 41 H 39 H 44 H Rate Blood Pressure 113/65 118/72 112/59 O2 Sat by Pulse 88 74 L 88 Oximetry 01/30/19 01/30/19 01/30/19 07:15 07:30 07:45 Temperature Pulse Rate 114 H 118 H 111 H Pulse Rate [ From Monitor] Respiratory 34 H 46 H 46 H Rate Blood Pressure 112/59 112/73 109/73 O2 Sat by Pulse 89 87 88 Oximetry 01/30/19 08:00 Temperature 98.8 F Pulse Rate 106 H Pulse Rate [ 106 H From Monitor] Respiratory 49 H Rate Blood Pressure 117/76 O2 Sat by Pulse 70 L Oximetry CBC and BMP: 01/30/19 12:00 01/30/19 04:15 ABG, PT/INR, D-dimer: ABG POC ABG pH 7.318 (7.35-7.45) L 01/30/19 10:02 POC ABG pCO2 31.7 (35-45) L 01/30/19 10:02 POC ABG HCO3 16.3 (22-26 mml/L) 01/30/19 10:02 POC ABG Total CO2 17 (23-27mmol/L) 01/30/19 10:02 POC ABG O2 Sat 73 01/30/19 10:02 PT/INR, D-dimer PT 19.0 Sec. (12.2-14.9) H 01/28/19 14:09 INR 1.49 (0.87-1.13) H 01/28/19 14:09 864.98 ng/mlDDU (0-234) H 01/28/19 14:09 Abnormal lab findings: Abnormal Labs 01/28/19 01/28/19 01/28/19 14:04 14:04 14:04 WBC 2.8 L RBC 3.58 L Hgb Hct MCV 102 H MCH 35 H RDW 16.1 H Plt Count 20 L Seg Neuts % (Manual) 75.0 H Lymphocytes % (Manual) 12.0 L Nucleated RBC % 1.0 H Lymphocytes # (Manual) 0.3 L PT INR D-Dimer POC ABG pH POC ABG pCO2 POC ABG pO2 Sodium 134 L Chloride 93.8 L Carbon Dioxide 17 L BUN 64 H Creatinine 4.8 H Glucose 57 L Lactic Acid 5.20 H* Calcium 7.0 L Total Bilirubin 2.70 H AST 146 H ALT Alkaline Phosphatase C-Reactive Protein Total Protein 5.7 L Albumin 2.1 L Urine WBC (Auto) Urine Creatinine 01/28/19 01/28/19 01/28/19 14:09 14:49 15:17 WBC RBC Hgb Hct MCV MCH RDW Plt Count Seg Neuts % (Manual) Lymphocytes % (Manual) Nucleated RBC % Lymphocytes # (Manual) PT 19.0 H INR 1.49 H D-Dimer 864.98 H POC ABG pH 7.164 L POC ABG pCO2 48.5 H POC ABG pO2 60 L Sodium Chloride Carbon Dioxide BUN Creatinine Glucose Lactic Acid 4.30 H* Calcium Total Bilirubin AST ALT Alkaline Phosphatase C-Reactive Protein Total Protein Albumin Urine WBC (Auto) Urine Creatinine 01/28/19 01/28/19 01/28/19 17:00 17:17 18:24 WBC RBC Hgb Hct MCV MCH RDW Plt Count Seg Neuts % (Manual) Lymphocytes % (Manual) Nucleated RBC % Lymphocytes # (Manual) PT INR D-Dimer POC ABG pH POC ABG pCO2 POC ABG pO2 Sodium Chloride Carbon Dioxide BUN Creatinine Glucose Lactic Acid 5.00 H* 4.50 H* Calcium Total Bilirubin AST ALT Alkaline Phosphatase C-Reactive Protein Total Protein Albumin Urine WBC (Auto) 11.0 H Urine Creatinine 01/28/19 01/29/19 01/29/19 22:45 04:49 04:49 WBC 15.1 H RBC 3.22 L Hgb 11.1 L Hct 33.1 L MCV 103 H MCH 35 H RDW 15.7 H Plt Count 16 L* Seg Neuts % (Manual) 15.0 L Lymphocytes % (Manual) 3.0 L Nucleated RBC % 6.0 H Lymphocytes # (Manual) 0.5 L PT INR D-Dimer POC ABG pH POC ABG pCO2 POC ABG pO2 Sodium 136 L Chloride Carbon Dioxide 14 L BUN 60 H Creatinine 2.2 H D Glucose 126 H Lactic Acid 4.00 H* Calcium 6.9 L Total Bilirubin 2.50 H AST 278 H ALT 69 H Alkaline Phosphatase C-Reactive Protein Total Protein 4.8 L Albumin 1.6 L Urine WBC (Auto) Urine Creatinine 01/29/19 01/29/19 01/29/19 04:49 04:49 05:27 WBC RBC Hgb Hct MCV MCH RDW Plt Count Seg Neuts % (Manual) Lymphocytes % (Manual) Nucleated RBC % Lymphocytes # (Manual) PT INR D-Dimer POC ABG pH POC ABG pCO2 POC ABG pO2 Sodium Chloride Carbon Dioxide BUN Creatinine Glucose Lactic Acid 3.30 H* 3.20 H* Calcium Total Bilirubin AST ALT Alkaline Phosphatase C-Reactive Protein 12.80 H Total Protein Albumin Urine WBC (Auto) Urine Creatinine 01/29/19 01/29/19 01/30/19 10:50 15:05 04:15 WBC 26.5 H RBC 3.09 L Hgb 10.6 L Hct 31.9 L MCV 103 H MCH 34 H RDW 15.7 H Plt Count 11 L* Seg Neuts % (Manual) Lymphocytes % (Manual) Nucleated RBC % Lymphocytes # (Manual) PT INR D-Dimer POC ABG pH POC ABG pCO2 POC ABG pO2 Sodium Chloride 112.5 H Carbon Dioxide 16 L BUN 71 H Creatinine Glucose 118 H Lactic Acid Calcium 7.6 L Total Bilirubin 2.60 H AST 301 H ALT 70 H Alkaline Phosphatase 150 H C-Reactive Protein Total Protein 4.6 L Albumin 1.7 L Urine WBC (Auto) Urine Creatinine 96.6 H 01/30/19 10:02 WBC RBC Hgb Hct MCV MCH RDW Plt Count Seg Neuts % (Manual) Lymphocytes % (Manual) Nucleated RBC % Lymphocytes # (Manual) PT INR D-Dimer POC ABG pH 7.318 L POC ABG pCO2 31.7 L POC ABG pO2 Sodium Chloride Carbon Dioxide BUN Creatinine Glucose Lactic Acid Calcium Total Bilirubin AST ALT Alkaline Phosphatase C-Reactive Protein Total Protein Albumin Urine WBC (Auto) Urine Creatinine Chest x-ray: image reviewed (Biateral alveolar infiltrates)
[2019-01-30] MEDS: SODIUM CHLORIDE FLUSH SYRINGE 10 ML IV SCH ×2 (10:36→23:37)
[2019-01-30] MEDS: VITAMIN B-1 PO SCH (10:36)
[2019-01-30] MEDS: FOLVITE PO SCH (10:36)
[2019-01-30] MEDS: MUCINEX ER PO SCH (10:36)
[2019-01-30] MEDS ORDERED: HALDOL IV PRN (10:38)
[2019-01-30] MEDS ORDERED: ATIVAN IV PRN ×3 (10:38)
--- NOTE | 2019-01-30 10:42 | Procedure Note ---
Date of procedure: 01/30/19 Post-op diagnosis: same Procedure: Endotracheal intubation was done by the RT under my supervision. IV fentanyl 50mcg, Midazolam 2mg and Sux 100mg was administered Patietn was intubated, Mac4 ETT 7.5cm, first pass no immediate complications. Equal AE bilaterally, Color change on CO2 detector, condensation in the tube Secured at 22cm at the lip Post procedure CXR ordered, done at the bedside. ETT in good position Estimated blood loss: none Pathology: none Condition: critical Disposition: ICU
[2019-01-30] MEDS ORDERED: SIMPLE SYRUP FEEDTUBE PRN ×2 (10:57)
[2019-01-30] MEDS ORDERED: PANCREAZE DR 10,500 UNIT FEEDTUBE PRN (10:57)
[2019-01-30] MEDS ORDERED: SODIUM BICARBONATE FEEDTUBE PRN (10:57)
[2019-01-30] MEDS ORDERED: NACL 0.9% 500 ML 500 ML IV SCH (11:00)
[2019-01-30] MEDS ORDERED: VERSED IV NR (11:00)
[2019-01-30] MEDS ORDERED: PEPCID IV SCH (11:00)
--- NOTE | 2019-01-30 11:06 | XRay Report ---
AP CHEST at 1033 hrs. History: Intubation and OG tube placement. Findings: An endotracheal tube and OG tube have been placed since earlier today at 0922 hours. The endotracheal tube is in good position terminating 4.8 cm superior to the shyanne. The OG tube is coiled in the fundus of the stomach. The remainder of the examination is unchanged.
[2019-01-30] MEDS: DIPRIVAN 10 MG/ML 1,000 MG/100 ML BOTTLE IV SCH (11:18)
[2019-01-30] MEDS ORDERED: VERSED IV ONE (11:20)
[2019-01-30] MEDS ORDERED: QUELICIN ONE (11:20)
[2019-01-30] MEDS: PROTONIX IV SCH (11:26)
[2019-01-30] MEDS: LEVOPHED DRIP 4 MG/NS 250 ML 4 MG/250 ML BAG IV SCH (12:08)
[2019-01-30 12:45] LABS: Albumin 1.8 g/dL (3.9-5); Bilirubin,Direct 3.1 mg/dL (0-0.2)
[2019-01-30] MEDS: Vasostrict 20 UNIT in NACL 0.9% 100 ML IV SCH ×2 (12:48→23:34)
[2019-01-30 12:54] LABS: Hepatitis C Virus Antibody Non-Reactive (NonReactive)
[2019-01-30] MEDS ORDERED: NACL 0.9% 1000 ML 1,000 ML IV SCH (13:00)
[2019-01-30 13:28] LABS: Hepatitis B Surface Antigen Non-Reactive (Negative)
--- NOTE | 2019-01-30 15:11 | Progress Note ---
Assessment and Plan / Acute respiratory distress syndrome Patient in ARDS with severe Hypoxia Intubated this morning, cont nebs and steroids Pulmonary following / Acute respiratory failure with hypoxia Secondary to sepsis and bilateral pneumonia cont IV antibiotics and nebulizer treatments and IV Solu-Medrol Sr Vice President consulted / Septic shock with severe sepsis due to PNA, and bacteremia Levophed was transiently on this morning but then restarted with vasopressin Continue iv fluid / EtOH dependence CIWA protocol initiated / Bilateral pneumonia IV cefepime and vancomycin cont IV fluids, follow cx ID following /Septecimia - blood cx positive for GPC - cont abx per ID, ordered TTE /Ham, due to severe sepsis with vasomotor nephropathy - cont iv fluid, improving - nephro consult if renal function declines /Anemia with thrombocytopenia - due to alcohol abuse and severe sepsis - cont to trend, no heparin product - Transfuse platelets today, monitor CBC /abnormal LFT - due to sepsis and alcoholic liver disease - cont to trend, hepatic US ordered, obtain acute hepatitis pannel / DVT prophylaxis SCD The high probability of a clinically significant, sudden or life threatening deterioration of the [multiple] system(s) required my full and direct attention, intervention and personal management. The aggregate critical care time was [35] minutes. This time is in addition to time spent performing reported procedures but includes the following: [x] Data Review and interpretation [x] Patient assessment and monitoring of vital signs [x] Documentation [x] Medication orders and management Brief History: 53-year-old male with history of gastroesophageal reflux disease and EtOH dependence sent from the primary care office for cough shortness of breath and low oxygen saturation levels. On arrival in the emergency room patient was hypotensive and his oxygen saturations were 60% on room air. Patient was kept on nonrebreather and multiple normal saline bolus boluses were given. Patient was placed on levophed, started on abx for b/l PNA and admitted to ICU. Radiological data: CT abdomen and pelvis IMPRESSION: Severe bilateral pulmonary infiltrates likely reflecting pneumonia. No acute intra-abdominal findings on noncontrast CT This document is electronically signed by Alessio Parry MD., Jan 28 2019 05:09:26 PM ET Chest x-ray IMPRESSION: Finding suggestive of mild CHF which appear to be new since 01/30/18. Bibasilar atelectatic changes. Hospitalist Physical exam: GENERAL: well-developed male lying on bed, intubated and sedated. HEENT: Normocephalic. Atraumatic. No conjunctival congestion or icterus. Patient has moist mucous membranes. NECK: Supple. Trachea midline. CHEST/LUNGS: coarse BS auscultated bilaterally, breathing nonlabored on ventilator. HEART/CARDIOVASCULAR: tachycardic. S1 and S2 positive. ABDOMEN: Abdomen is soft, nontender. Patient has normal bowel sounds. SKIN: There is no rash. Warm and dry. NEURO: Sedated. MUSCULOSKELETAL: No joint effusion or tenderness. EXTRIMITY: No edema, no cyanosis or clubbing. PSYCH: Unable to assess. 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 peel operator Continued to be hypoxic overnight, and tachycardic tachypneic Did not improve with the BiPAP, ABG showed severe hypoxemia with acidosis Intubated this morning, Objective - Constitutional Vitals: Vital Signs - 12hr 01/30/19 01/30/19 01/30/19 03:15 03:30 03:45 Temperature Pulse Rate 108 H 112 H 109 H Pulse Rate [ From Monitor] Respiratory 38 H 38 H 39 H Rate Blood Pressure 112/69 113/73 108/71 O2 Sat by Pulse 93 91 92 Oximetry 01/30/19 01/30/19 01/30/19 04:00 04:01 04:15 Temperature 98.5 F Pulse Rate 116 H 111 H Pulse Rate [ 112 H From Monitor] Respiratory 35 H 37 H 40 H Rate Blood Pressure 107/56 115/65 O2 Sat by Pulse 93 90 90 Oximetry 01/30/19 01/30/19 01/30/19 04:31 04:45 05:00 Temperature Pulse Rate 116 H 113 H 109 H Pulse Rate [ From Monitor] Respiratory 43 H 38 H 35 H Rate Blood Pressure 111/68 118/72 119/62 O2 Sat by Pulse 69 L 91 91 Oximetry 01/30/19 01/30/19 01/30/19 05:15 05:31 05:45 Temperature Pulse Rate 113 H 114 H 115 H Pulse Rate [ From Monitor] Respiratory 39 H 34 H 33 H Rate Blood Pressure 122/72 122/72 129/72 O2 Sat by Pulse 90 82 L 81 L Oximetry 01/30/19 01/30/19 01/30/19 06:00 06:15 06:30 Temperature Pulse Rate 112 H 111 H 112 H Pulse Rate [ From Monitor] Respiratory 47 H 40 H 41 H Rate Blood Pressure 133/80 123/72 113/65 O2 Sat by Pulse 87 88 88 Oximetry 01/30/19 01/30/19 01/30/19 06:45 07:01 07:15 Temperature Pulse Rate 114 H 115 H 114 H Pulse Rate [ From Monitor] Respiratory 39 H 44 H 34 H Rate Blood Pressure 118/72 112/59 112/59 O2 Sat by Pulse 74 L 88 89 Oximetry 01/30/19 01/30/19 01/30/19 07:30 07:45 08:00 Temperature 98.8 F Pulse Rate 118 H 111 H 106 H Pulse Rate [ 106 H From Monitor] Respiratory 46 H 46 H 49 H Rate Blood Pressure 112/73 109/73 117/76 O2 Sat by Pulse 87 88 70 L Oximetry 01/30/19 01/30/19 01/30/19 10:30 12:00 12:35 Temperature 98.8 F Pulse Rate 115 H 115 H Pulse Rate [ From Monitor] Respiratory Rate Blood Pressure O2 Sat by Pulse 93 93 Oximetry - Labs CBC & Chem 7: 01/31/19 06:00 01/31/19 06:00 Labs: Abnormal lab results 01/29/19 01/29/19 01/30/19 Range/Units 10:50 15:05 04:15 WBC 26.5 H (4.5-11.0) K/mm3 RBC 3.09 L (3.65-5.03) M/mm3 Hgb 10.6 L (11.8-15.2) gm/dl Hct 31.9 L (35.5-45.6) % MCV 103 H (84-94) fl MCH 34 H (28-32) pg RDW 15.7 H (13.2-15.2) % Plt Count 11 L* (140-440) K/mm3 POC ABG pH (7.35-7.45) POC ABG pCO2 (35-45) Chloride 112.5 H (98-107) mmol/L Carbon Dioxide 16 L (22-30) mmol/L BUN 71 H (9-20) mg/dL Glucose 118 H (75-100) mg/dL Calcium 7.6 L (8.4-10.2) mg/dL Phosphorus (2.5-4.5) mg/dL Total Bilirubin 2.60 H (0.1-1.2) mg/dL Direct Bilirubin (0-0.2) mg/dL AST 301 H (5-40) units/L ALT 70 H (7-56) units/L Alkaline Phosphatase 150 H (35-129) units/L Ammonia (25-60) umol/L Total Protein 4.6 L (6.3-8.2) g/dL Albumin 1.7 L (3.9-5) g/dL Amylase (27-131) units/L Urine Creatinine 96.6 H (0.1-20.0) mg/dL 01/30/19 01/30/19 01/30/19 Range/Units 10:02 12:00 12:00 WBC (4.5-11.0) K/mm3 RBC (3.65-5.03) M/mm3 Hgb (11.8-15.2) gm/dl Hct (35.5-45.6) % MCV (84-94) fl MCH (28-32) pg RDW (13.2-15.2) % Plt Count (140-440) K/mm3 POC ABG pH 7.318 L (7.35-7.45) POC ABG pCO2 31.7 L (35-45) Chloride (98-107) mmol/L Carbon Dioxide (22-30) mmol/L BUN (9-20) mg/dL Glucose (75-100) mg/dL Calcium 8.0 L (8.4-10.2) mg/dL Phosphorus 6.10 H (2.5-4.5) mg/dL Total Bilirubin 3.50 H (0.1-1.2) mg/dL Direct Bilirubin 3.1 H (0-0.2) mg/dL AST 349 H (5-40) units/L ALT 76 H (7-56) units/L Alkaline Phosphatase 208 H (35-129) units/L Ammonia 83.0 H (25-60) umol/L Total Protein 5.0 L (6.3-8.2) g/dL Albumin 1.8 L (3.9-5) g/dL Amylase 21 L (27-131) units/L Urine Creatinine (0.1-20.0) mg/dL 01/30/19 Range/Units 12:26 WBC (4.5-11.0) K/mm3 RBC (3.65-5.03) M/mm3 Hgb (11.8-15.2) gm/dl Hct (35.5-45.6) % MCV (84-94) fl MCH (28-32) pg RDW (13.2-15.2) % Plt Count (140-440) K/mm3 POC ABG pH 7.175 L (7.35-7.45) POC ABG pCO2 (35-45) Chloride (98-107) mmol/L Carbon Dioxide (22-30) mmol/L BUN (9-20) mg/dL Glucose (75-100) mg/dL Calcium (8.4-10.2) mg/dL Phosphorus (2.5-4.5) mg/dL Total Bilirubin (0.1-1.2) mg/dL Direct Bilirubin (0-0.2) mg/dL AST (5-40) units/L ALT (7-56) units/L Alkaline Phosphatase (35-129) units/L Ammonia (25-60) umol/L Total Protein (6.3-8.2) g/dL Albumin (3.9-5) g/dL Amylase (27-131) units/L Urine Creatinine (0.1-20.0) mg/dL
--- NOTE | 2019-01-30 15:25 | Vascular Lab Report ---
PROCEDURE: VL VENOUS DUPLEX LE BILAT TECHNIQUE: Duplex Doppler ultrasound examination of the venous system of the right leg and left leg HISTORY: DVT COMPARISONS: None FINDINGS: RIGHT LEG: Normal compressibility, vascular patency, and augmentation are present diffusely throughout the visua lized portion of the deep veins. No abnormal intraluminal echoes are visualized to suggest deep vein thrombus. IMPRESSION: No ultrasound evidence of DVT in the right leg LEFT LEG: Normal compressibility, vascular patency, and augmentation are present diffusely throughout the visua lized portion of the deep veins. No abnormal intraluminal echoes are visualized to suggest deep vein thrombus. IMPRESSION: No ultrasound evidence of DVT in the left leg This document is electronically signed by West Oliveira MD., Jan 30 2019 03:23:38 PM ET
--- NOTE | 2019-01-30 16:23 | Progress Note ---
Assessment and Plan Cultures: Blood culture 01/28/2019 GPC in chains 2 of 4 bottles Assessment: 53 y/o male with history of alcohol dependence, former smoker and gastroesophageal reflux disease admitted on 01/28/2019 sent from the primary care office for 3-week history of cough with hemoptysis and progressive shortness of breath, weight loss: 1) Severe Sepsis with septic shock: worsening leukocytosis and pressors req. Etiology most likely bilateral pneumonia / GPC bacteremia. Lactate 5.2. UA negative. 2) Bilateral pneumonia: patient with alcohol abuse and GERD ? aspiration pneumonia v/s ? CAP v/s given that he was born in [place] and experiencing weight loss and hemoptysis, pulmonary TB should be ruled out. Per daughter, patient has lost 5 L in 3 weeks. He has poor appetite. HIV rapid negative.CXR showed findings suggestive of mild CHF which appear to be new since 01/30/18. Abdominal CT showed extensive bilateral pulmonary consolidating infiltrates containing some air bronchograms. 3) GPC in chain bacteremia: ? Strep bacteremia 4) Elevated LFTs: from ETOH hepatitis? +/- sepsis. AST 146. ? liver cirrhosis. 5) Pancytopenia: mainly neutropenia and thrombocytopenia ? liver cirrhosis. WBC 2.8. Hg 12.5. Plat 20. 6) CALVIN: ? renally adjusted all antibiotics 7) Acute hypoxemic respiratory failure: from pneumonia on BIPAP no intubated Recommendations: - repeat blood cultures today - follow-up blood cultures - obtain regular sputum culture - TTE pending - check Legionella urine antigen, Streptococcus pneumoniae urine antigen, Mycoplasma serology, Chlamydia pneumophila serology - stop azithromycin and flagyl - continue cefepime and vancomycin - add clindamycin until GAS bacteremia is r/o Poor prognosis discussed with family Will follow. Dhara Hunter MD Infectious Diseases Laboratory Courier [facility] M [phone] O [phone] Subjective Date of service: 01/30/19 Principal diagnosis: septic shock Interval history: Now intubated, on pressors, worsened AMS, ROS unable to obtain Objective - Exam Narrative Exam: General appearance: sedated intubated Eyes: anicteric sclerae, moist conjunctivae; no lid-lag; PERRLA HENT: Atraumatic; oropharynx ETT with blood Neck: Trachea midline; supple, no thyromegaly or lymphadenopathy Lungs: hal rhonchi and wheezing CV:tachy Abdomen: Soft, non-tender; no masses or hepatosplenomegaly Extremities: No peripheral edema or extremity lymphadenopathy Skin: Normal temperature, turgor and texture; no rash, ulcers or subcutaneous nodules Psych: no agitated Neuro: sedated Fem TLC - Constitutional Vitals: Vital Signs Temp Pulse Resp BP Pulse Ox 98.8 F 124 H 22 88/86 79 L 01/30/19 12:00 01/30/19 15:54 01/30/19 15:00 01/30/19 15:54 01/30/19 15:54 Temperature -Last 24 Hours Temperature 98.8 F Temperature 98.8 F Temperature 98.8 F Temperature 98.5 F Temperature 98.7 F Temperature 98.7 F - Labs CBC & Chem 7: 01/29/19 15:05 01/30/19 04:15 Labs: Abnormal lab results 01/29/19 01/30/19 01/30/19 Range/Units 10:50 04:15 10:02 POC ABG pH 7.318 L (7.35-7.45) POC ABG pCO2 31.7 L (35-45) POC ABG pO2 (80-105) Chloride 112.5 H (98-107) mmol/L Carbon Dioxide 16 L (22-30) mmol/L BUN 71 H (9-20) mg/dL Glucose 118 H (75-100) mg/dL Calcium 7.6 L (8.4-10.2) mg/dL Phosphorus (2.5-4.5) mg/dL Total Bilirubin 2.60 H (0.1-1.2) mg/dL Direct Bilirubin (0-0.2) mg/dL AST 301 H (5-40) units/L ALT 70 H (7-56) units/L Alkaline Phosphatase 150 H (35-129) units/L Ammonia (25-60) umol/L Total Protein 4.6 L (6.3-8.2) g/dL Albumin 1.7 L (3.9-5) g/dL Amylase (27-131) units/L Urine Creatinine 96.6 H (0.1-20.0) mg/dL 01/30/19 01/30/19 01/30/19 Range/Units 12:00 12:00 12:26 POC ABG pH 7.175 L (7.35-7.45) POC ABG pCO2 (35-45) POC ABG pO2 (80-105) Chloride (98-107) mmol/L Carbon Dioxide (22-30) mmol/L BUN (9-20) mg/dL Glucose (75-100) mg/dL Calcium 8.0 L (8.4-10.2) mg/dL Phosphorus 6.10 H (2.5-4.5) mg/dL Total Bilirubin 3.50 H (0.1-1.2) mg/dL Direct Bilirubin 3.1 H (0-0.2) mg/dL AST 349 H (5-40) units/L ALT 76 H (7-56) units/L Alkaline Phosphatase 208 H (35-129) units/L Ammonia 83.0 H (25-60) umol/L Total Protein 5.0 L (6.3-8.2) g/dL Albumin 1.8 L (3.9-5) g/dL Amylase 21 L (27-131) units/L Urine Creatinine (0.1-20.0) mg/dL 01/30/19 Range/Units 15:46 POC ABG pH 7.173 L (7.35-7.45) POC ABG pCO2 (35-45) POC ABG pO2 53 L (80-105) Chloride (98-107) mmol/L Carbon Dioxide (22-30) mmol/L BUN (9-20) mg/dL Glucose (75-100) mg/dL Calcium (8.4-10.2) mg/dL Phosphorus (2.5-4.5) mg/dL Total Bilirubin (0.1-1.2) mg/dL Direct Bilirubin (0-0.2) mg/dL AST (5-40) units/L ALT (7-56) units/L Alkaline Phosphatase (35-129) units/L Ammonia (25-60) umol/L Total Protein (6.3-8.2) g/dL Albumin (3.9-5) g/dL Amylase (27-131) units/L Urine Creatinine (0.1-20.0) mg/dL
[2019-01-30 17:55] LABS: Hematocrit 37.5 % (35.5-45.6); Mean Corpuscular HGB Conc 32 % (32-34); Mean Corpuscular Volume 106 fl (84-94); Red Blood Count 3.54 M/mm3 (3.65-5.03); Red Cell Distribution Width 16.6 % (13.2-15.2)
[2019-01-30 17:58] LABS: Platelet Count 6 K/mm3 (140-440)
[2019-01-30] MEDS ORDERED: NACL 0.9% 500 ML 500 ML IV ONE (18:15)
[2019-01-30] MEDS: CLEOCIN 900 MG/50 mL 900 MG/50 ML BAG IV SCH (18:29)
--- NOTE | 2019-01-30 20:54 | Event Note ---
Date: 01/30/19 Continues to be difficult to oxygenate. We do not have a rotator bed available and do not have the expertise for it. Currently on AC-30/400/10/100% with O2 saturations persistently in the 70s. Discussed with hospitalist service, recommend transfer to tertiary center for management.
[2019-01-30] MEDS: SODIUM BICARBONATE 150 MEQ in D5W 1,000 ML IV SCH (21:14)
[2019-01-30] MEDS: LEVOPHED 8 MG in NACL 0.9% 250ML 242 ML IV SCH (21:46)
[2019-01-30] MEDS: NEO-SYNEPHRINE 100 MG in NACL 0.9% 90 ML IV SCH (21:47)
[2019-01-30] MEDS ORDERED: NACL 0.9% 250ML 250 ML ONE (22:05)
[2019-01-30] MEDS ORDERED: ZEMURON IV ONE (23:01)
[2019-01-31] MEDS ORDERED: NIMBEX IV ONE (00:21)
[2019-01-31] MEDS: DIPRIVAN 10 MG/ML 1,000 MG/100 ML BOTTLE IV SCH ×2 (01:30→06:15)
[2019-01-31] MEDS: LEVOPHED 8 MG in NACL 0.9% 250ML 242 ML IV SCH ×4 (02:15→19:45)
[2019-01-31] MEDS: NEO-SYNEPHRINE 100 MG in NACL 0.9% 90 ML IV SCH ×4 (05:51→19:38)
[2019-01-31] MEDS: NIMBEX IV SCH ×2 (05:52→05:54)
[2019-01-31] MEDS: NACL 0.9% IV SCH ×2 (05:52→05:54)
[2019-01-31] MEDS: Vasostrict 20 UNIT in NACL 0.9% 100 ML IV SCH ×2 (06:13→19:39)
[2019-01-31 06:38] LABS: Hematocrit 31.1 % (35.5-45.6); Hemoglobin 9.9 gm/dl (11.8-15.2); Mean Corpuscular HGB Conc 32 % (32-34); Red Blood Count 2.82 M/mm3 (3.65-5.03); Red Cell Distribution Width 17.3 % (13.2-15.2)
[2019-01-31 06:44] LABS: Mean Corpuscular Volume 111 fl (84-94)
[2019-01-31 06:45] LABS: Platelet Count 67 K/mm3 (140-440)
[2019-01-31 06:57] LABS: BUN/Creatinine Ratio 34; Blood Urea Nitrogen 85 mg/dL (9-20); Calcium 7.8 mg/dL (8.4-10.2); Hemolysis Index 14
--- NOTE | 2019-01-31 07:02 | Event Note ---
Date: 01/30/19 Pt is a 53 year old male who was admitted to ICU for Acute sepsis shock, bilateral pneumonia, ARDS. Hospitalist CARE CONSULTANT was called by database developer (Dr Sanchez) to follow arrange on pt transfer to [facility] because the pt was not ventillating, he was in severe hypoxia and needed ECMO. I spoke with Linda at the transfer center at [facility] who put Dr Browning on the line. A report was given to Dr Browning on the patient. Base on the pt's current condition, there was criteria set for the pt's tranfer that wasn't met at the time. First the pt needed to be in a PaO2 of >65, sat > 95%, on a paralytic (Cisatracurium) Nimbex was recommended, pH 7.2, PEEP 18-20, stable BP or MAP. At that time pt had a : Pa)2 of 44, pH of 6.9, PO2 %, PCO2 56, HCO3 was 11.7, O2 sat was 70%, PEEP was 16, BP 87/46 art line. In addition the platelet was 6, pt was receiving platelet and Bicarp. Levo was 30mcg/min, john 150 and vasopressin 0.03. By 0130am. Casatracurium drip was started to induce a paralytic state, in conjuction with Diprovan drip (the pt had to be monitored by an CARE CONSULTANT or MD) I remain in the unit and give the bolus and started the drip, there was no nursing on the unit to monitor the paralytic drip. 2 hours later, after pt was placed in a prone position (Per [facility] team recommendation), Levophed at 30mcg/min, John at 200 and vasopressin at 0.03, pt 's PaO2 was at 59, pH 6.9, Peep was 18, and pt's BP 90/48. Pt was being monitored and turn Q2 hrs to a prone position. at 5:50 am PaO2 increase to 82, pH was 7.0, Peep was 19, O2 sat was 93%, report was given to incoming hostitalist (Dr De Los Santos to follow up in pt's condition and need for transfer to [facility])
[2019-01-31] MEDS ORDERED: VIAFLEX EMPTY CONTAINER IV SCH (08:00)
[2019-01-31] MEDS ORDERED: NACL IV SCH (08:00)
[2019-01-31] MEDS ORDERED: ATIVAN IV SCH (08:00)
[2019-01-31] MEDS: fentaNYL DRIP Premix 2,000 MCG/100 ML BAG IV SCH ×2 (08:04→21:51)
--- NOTE | 2019-01-31 08:04 | Progress Note ---
Assessment and Plan Cultures: Blood culture 01/28/2019 Strep pneumoniae 4 of 4 bottles Blood culture 01/30/2019 no growth Assessment: 53 y/o male with history of alcohol dependence, former smoker and gastroesophageal reflux disease admitted on 01/28/2019 sent from the primary care office for 3-week history of cough with hemoptysis and progressive shortness of breath, weight loss: 1) Severe Sepsis with septic shock: worsening, now on 3 pressors, bicarb gtt. Etiology most likely bilateral pneumonia / Pneumococcal bacteremia. UA negative. 2) Bilateral pneumonia: likely due to Pneumococcus. HIV rapid negative.CXR showed findings suggestive of mild CHF which appear to be new since 01/30/18. Abdominal CT showed extensive bilateral pulmonary consolidating infiltrates containing some air bronchograms. 3) High grade Pneumococcal bacteremia: Invasive pneumococcal disease?. TTE pending, on cefepime, vanco, clinda 4) Elevated LFTs: from ETOH hepatitis? +/- sepsis. AST 146. ? liver cirrhosis. 5) Pancytopenia: mainly neutropenia and thrombocytopenia ? liver cirrhosis. WBC 2.8. Hg 12.5. Plat 20. 6) CALVIN: ? renally adjusted all antibiotics 7) Acute hypoxemic respiratory failure: now intubated on paralytics Recommendations: - agree with - stop cefepime and clindamycin - continue vancomycin for now - start ceftriaxone 2 gm IV q12 h - follow-up repeat blood cultures today - obtain regular sputum culture - TTE pending - f/u Legionella urine antigen, Streptococcus pneumoniae urine antigen, Mycoplasma serology, Chlamydia pneumophila serology Grim prognosis discussed with family Will follow. Dhara Hunter MD Infectious Diseases Operational Intelligence Officer [facility] M [phone] O [phone] Subjective Date of service: 01/31/19 Principal diagnosis: septic shock Interval history: Condition worsened critically ill on 3 pressors, paralysed, FIO2 100%, p19, intubated, tmax 99.7 ROS unable to obtain Objective - Exam Narrative Exam: General appearance: sedated intubated paralysed Eyes: anicteric sclerae, moist conjunctivae; no lid-lag; PERRLA HENT: Atraumatic; oropharynx ETT with blood Neck: Trachea midline; supple, no thyromegaly or lymphadenopathy Lungs: hal rhonchi and wheezing CV:tachy Abdomen: Soft, non-tender; no masses or hepatosplenomegaly Extremities: hal leg/arm edema Skin: Normal temperature, turgor and texture; no rash, ulcers or subcutaneous nodules Psych: no agitated Neuro: sedated Fem TLC - Constitutional Vitals: Vital Signs Temp Pulse Resp BP Pulse Ox 99.7 F H 121 H 30 H 94/32 93 01/31/19 04:00 01/31/19 04:47 01/31/19 04:15 01/31/19 04:47 01/31/19 04:47 Temperature -Last 24 Hours Temperature 99.7 F Temperature 99 F Temperature 99 F Temperature 99.8 F Temperature 98.5 F Temperature 98.5 F Temperature 97 F Temperature 98.7 F Temperature 98.8 F Temperature 98.8 F Temperature 98.8 F Temperature 98.8 F - Labs CBC & Chem 7: 01/31/19 06:00 01/31/19 06:00 Labs: Abnormal lab results 01/30/19 01/30/19 01/30/19 Range/Units 10:02 12:00 12:00 WBC 32.4 H (4.5-11.0) K/mm3 RBC 3.54 L (3.65-5.03) M/mm3 Hgb (11.8-15.2) gm/dl Hct (35.5-45.6) % MCV 106 H (84-94) fl MCH 34 H (28-32) pg RDW 16.6 H (13.2-15.2) % Plt Count 6 L* (140-440) K/mm3 POC ABG pH 7.318 L (7.35-7.45) POC ABG pCO2 31.7 L (35-45) POC ABG pO2 (80-105) Chloride (98-107) mmol/L Carbon Dioxide (22-30) mmol/L BUN (9-20) mg/dL Calcium 8.0 L (8.4-10.2) mg/dL Phosphorus 6.10 H (2.5-4.5) mg/dL Total Bilirubin 3.50 H (0.1-1.2) mg/dL Direct Bilirubin 3.1 H (0-0.2) mg/dL AST 349 H (5-40) units/L ALT 76 H (7-56) units/L Alkaline Phosphatase 208 H (35-129) units/L Ammonia (25-60) umol/L Total Protein 5.0 L (6.3-8.2) g/dL Albumin 1.8 L (3.9-5) g/dL Amylase 21 L (27-131) units/L 01/30/19 01/30/19 01/30/19 Range/Units 12:00 12:26 15:46 WBC (4.5-11.0) K/mm3 RBC (3.65-5.03) M/mm3 Hgb (11.8-15.2) gm/dl Hct (35.5-45.6) % MCV (84-94) fl MCH (28-32) pg RDW (13.2-15.2) % Plt Count (140-440) K/mm3 POC ABG pH 7.175 L 7.173 L (7.35-7.45) POC ABG pCO2 (35-45) POC ABG pO2 53 L (80-105) Chloride (98-107) mmol/L Carbon Dioxide (22-30) mmol/L BUN (9-20) mg/dL Calcium (8.4-10.2) mg/dL Phosphorus (2.5-4.5) mg/dL Total Bilirubin (0.1-1.2) mg/dL Direct Bilirubin (0-0.2) mg/dL AST (5-40) units/L ALT (7-56) units/L Alkaline Phosphatase (35-129) units/L Ammonia 83.0 H (25-60) umol/L Total Protein (6.3-8.2) g/dL Albumin (3.9-5) g/dL Amylase (27-131) units/L 01/30/19 01/30/19 01/31/19 Range/Units 18:56 21:16 01:34 WBC (4.5-11.0) K/mm3 RBC (3.65-5.03) M/mm3 Hgb (11.8-15.2) gm/dl Hct (35.5-45.6) % MCV (84-94) fl MCH (28-32) pg RDW (13.2-15.2) % Plt Count (140-440) K/mm3 POC ABG pH 7.153 L 7.044 L 6.924 L (7.35-7.45) POC ABG pCO2 46.2 H 56.4 H (35-45) POC ABG pO2 59 L (80-105) Chloride (98-107) mmol/L Carbon Dioxide (22-30) mmol/L BUN (9-20) mg/dL Calcium (8.4-10.2) mg/dL Phosphorus (2.5-4.5) mg/dL Total Bilirubin (0.1-1.2) mg/dL Direct Bilirubin (0-0.2) mg/dL AST (5-40) units/L ALT (7-56) units/L Alkaline Phosphatase (35-129) units/L Ammonia (25-60) umol/L Total Protein (6.3-8.2) g/dL Albumin (3.9-5) g/dL Amylase (27-131) units/L 01/31/19 01/31/19 01/31/19 Range/Units 04:46 06:00 06:00 WBC 28.9 H (4.5-11.0) K/mm3 RBC 2.82 L (3.65-5.03) M/mm3 Hgb 9.9 L (11.8-15.2) gm/dl Hct 31.1 L D (35.5-45.6) % MCV 111 H (84-94) fl MCH 35 H (28-32) pg RDW 17.3 H (13.2-15.2) % Plt Count 67 L D (140-440) K/mm3 POC ABG pH 7.033 L (7.35-7.45) POC ABG pCO2 (35-45) POC ABG pO2 (80-105) Chloride 109.5 H (98-107) mmol/L Carbon Dioxide 12 L (22-30) mmol/L BUN 85 H (9-20) mg/dL Calcium 7.8 L (8.4-10.2) mg/dL Phosphorus (2.5-4.5) mg/dL Total Bilirubin (0.1-1.2) mg/dL Direct Bilirubin (0-0.2) mg/dL AST (5-40) units/L ALT (7-56) units/L Alkaline Phosphatase (35-129) units/L Ammonia (25-60) umol/L Total Protein (6.3-8.2) g/dL Albumin (3.9-5) g/dL Amylase (27-131) units/L
[2019-01-31 08:55] LABS: Basophils % (Manual) 0 % (0.0-1.8); Eosinophils % (Manual) 0 % (0.0-4.3); Monocytes % (Manual) 0 % (0.0-7.3); Myelocytes # (Manual) 0.6 K/mm3; Total Cells Counted 100
[2019-01-31 08:59] LABS: Anisocytosis 1+; Macrocytosis Few; Platelet Estimate Consistent w Auto; Poikilocytosis 1+; Target Cells Few; Tear Drop Cells 1+
[2019-01-31] MEDS: CLEOCIN 900 MG/50 mL 900 MG/50 ML BAG IV SCH (08:59)
--- NOTE | 2019-01-31 10:04 | Progress Note ---
Assessment and Plan 1. Acute kidney injury: Vasomotor CALVIN in the setting of hypotension and volume depletion. Ct abdomen was negative for hydro. Continue IV fluids. Renal function is declining due to hypotension. Monitor renal function. Renal prognosis is guarded. Avoid nephrotoxic agents. Meds dosage based on GFR. 2. FEN: Volume depletion, IV fluids. Lactic acidosis, IV fluids. Monitor lytes. 3. Acute hypoxic Respiratory failure: ARDS. On vent. 4. Sepsis with Shock: Currently he is on 3 different pressors. 5. Bilateral Pneumonia: Followed by ID. 6. Elevated LFTs. 7. Anemia and Thrombocytopenia. Subjective Date of service: 01/31/19 Principal diagnosis: septic shock Interval history: Patient was seen and examined at the bedside. Objective - Vital Signs Vital signs: Vital Signs - 12hr 01/30/19 01/30/19 01/30/19 22:15 22:16 22:31 Temperature 97 F L Pulse Rate 136 H 134 H 136 H Respiratory 29 H 27 H 27 H Rate Blood Pressure 111/95 93/50 178/146 O2 Sat by Pulse 72 L 73 L 70 L Oximetry 01/30/19 01/30/19 01/30/19 22:43 22:45 23:01 Temperature Pulse Rate 134 H 134 H 134 H Respiratory 26 H 30 H 26 H Rate Blood Pressure 228/161 228/161 140/110 O2 Sat by Pulse 75 L 75 L 76 L Oximetry 01/30/19 01/30/19 01/30/19 23:03 23:15 23:25 Temperature 98.5 F Pulse Rate 136 H 132 H 131 H Respiratory 30 H 28 H Rate Blood Pressure 66/56 140/110 90/50 O2 Sat by Pulse 72 L 72 L 76 L Oximetry 01/30/19 01/30/19 01/30/19 23:30 23:32 23:45 Temperature 98.5 F Pulse Rate 132 H 133 H 129 H Respiratory 26 H 28 H 30 H Rate Blood Pressure 147/122 89/52 147/122 O2 Sat by Pulse 78 L 77 L 73 L Oximetry 01/31/19 01/31/19 01/31/19 00:00 00:15 00:30 Temperature 99.8 F H Pulse Rate 131 H 130 H 129 H Respiratory 29 H 27 H 29 H Rate Blood Pressure 106/40 112/40 112/40 O2 Sat by Pulse 77 L 78 L 78 L Oximetry 01/31/19 01/31/19 01/31/19 00:45 01:00 01:10 Temperature Pulse Rate 127 H 131 H 131 H Respiratory 30 H 30 H Rate Blood Pressure 97/36 98/36 98/36 O2 Sat by Pulse 79 L 84 84 Oximetry 01/31/19 01/31/19 01/31/19 01:15 01:17 01:31 Temperature 99 F Pulse Rate 130 H 130 H 129 H Respiratory 30 H 30 H 30 H Rate Blood Pressure 91/31 90/51 91/33 O2 Sat by Pulse 85 86 87 Oximetry 01/31/19 01/31/19 01/31/19 01:45 01:55 02:01 Temperature Pulse Rate 129 H 125 H Respiratory 30 H 30 H Rate Blood Pressure 91/33 90/31 O2 Sat by Pulse 87 91 92 Oximetry 01/31/19 01/31/19 01/31/19 02:15 02:30 02:45 Temperature Pulse Rate 125 H 125 H 125 H Respiratory 30 H 30 H 30 H Rate Blood Pressure 96/40 95/40 98/38 O2 Sat by Pulse 90 91 92 Oximetry 01/31/19 01/31/19 01/31/19 03:00 03:15 03:30 Temperature Pulse Rate 125 H 124 H 124 H Respiratory 30 H 31 H 30 H Rate Blood Pressure 99/36 94/36 97/36 O2 Sat by Pulse 92 93 93 Oximetry 01/31/19 01/31/19 01/31/19 03:45 04:00 04:15 Temperature 99.7 F H Pulse Rate 123 H 123 H 122 H Respiratory 30 H 30 H 30 H Rate Blood Pressure 95/31 91/38 94/36 O2 Sat by Pulse 93 93 93 Oximetry 01/31/19 01/31/19 01/31/19 04:30 04:45 04:47 Temperature Pulse Rate 122 H 121 H 121 H Respiratory 30 H 30 H Rate Blood Pressure 92/34 94/32 94/32 O2 Sat by Pulse 93 93 93 Oximetry 01/31/19 01/31/19 01/31/19 05:00 05:15 05:30 Temperature Pulse Rate 121 H 122 H 121 H Respiratory 30 H 30 H 30 H Rate Blood Pressure 91/35 102/33 95/31 O2 Sat by Pulse 93 93 93 Oximetry 01/31/19 01/31/19 01/31/19 05:45 06:00 06:15 Temperature Pulse Rate 116 H 118 H 116 H Respiratory 30 H 30 H 29 H Rate Blood Pressure 97/29 103/35 92/34 O2 Sat by Pulse 92 91 90 Oximetry 01/31/19 01/31/19 01/31/19 06:30 06:45 07:00 Temperature Pulse Rate 117 H 111 H 108 H Respiratory 30 H 30 H 30 H Rate Blood Pressure 97/33 84/29 83/24 O2 Sat by Pulse 92 92 92 Oximetry 01/31/19 01/31/19 01/31/19 07:15 07:30 07:45 Temperature Pulse Rate 112 H 114 H 114 H Respiratory 29 H 30 H 30 H Rate Blood Pressure 93/26 91/34 110/31 O2 Sat by Pulse 95 95 98 Oximetry 01/31/19 01/31/19 01/31/19 07:59 08:00 08:15 Temperature 98.0 F Pulse Rate 116 H 115 H Respiratory 30 H 30 H Rate Blood Pressure 102/31 92/32 O2 Sat by Pulse 97 93 Oximetry 01/31/19 01/31/19 01/31/19 08:27 08:30 08:45 Temperature Pulse Rate 116 H 115 H 116 H Respiratory 30 H 30 H Rate Blood Pressure 58/51 102/31 103/32 O2 Sat by Pulse 96 99 96 Oximetry 01/31/19 01/31/19 09:00 09:13 Temperature Pulse Rate 116 H Respiratory 30 H Rate Blood Pressure 101/44 O2 Sat by Pulse 96 96 Oximetry - General Appearance General appearance: well-developed, well-nourished, appears stated age, intubated EENT: ATNC Neck: supple Respiratory: Present: Other (coarse breath sounds) Cardiology: regular, tachycardia, S1S2, no murmurs Gastrointestinal: no tenderness, no distended Integumentary: no rash Neurologic: obtunded Musculoskeletal: other (no edema) - Lab 01/31/19 06:00 01/31/19 12:18 Most recent lab results Calcium 7.8 mg/dL (8.4-10.2) L 01/31/19 06:00 Phosphorus 6.10 mg/dL (2.5-4.5) H 01/30/19 12:00 Magnesium 2.20 mg/dL (1.7-2.3) 01/30/19 12:00 96.6 mg/dL (0.1-20.0) H 01/29/19 10:50 10 mmol/L 01/29/19 10:50 Medications & Allergies - Medications Allergies/Adverse Reactions: Allergies No Known Allergies Allergy (Unverified 01/30/18 14:54) Home Medications: Home Medications Medication Instructions Recorded Confirmed Last Taken Type Folic Acid 1 tab PO QDAY #30 tab 01/30/18 Unknown Rx Folic Acid [Folvite] 1 mg PO QDAY #30 tablet 01/30/18 Unknown Rx Pantoprazole [Protonix TAB] 20 mg PO BID #60 tablet. 01/30/18 Unknown Rx Sucralfate [Carafate] 1 gm PO ACHS #30 tablet 01/30/18 Unknown Rx Thiamine [Vitamin B-1] 100 mg PO QDAY #30 tablet 01/30/18 Unknown Rx Active Medications: Generic Name Dose Route Start Last Admin Trade Name Freq PRN Reason Stop Dose Admin Lipase/Protease/Amylase 1 each 01/30/19 10:57 Pancreaze 10,500 Unit FEEDTUBE PRN PRN For Clogged Feeding Tube Folic Acid 1 mg 01/30/19 10:00 01/30/19 10:36 Folvite PO 1 mg DAILY INDU Administration Haloperidol Lactate 5 mg 01/30/19 10:38 Haldol IV Q1HR PRN Unrespon. to mult. doses BZD's Vancomycin HCl 1 gm in 250 mls @ 167.007 mls/hr 01/30/19 10:00 01/30/19 10:34 Vancomycin/Ns 1 Gm/250 Ml IV 167.007 mls/hr Q24HR INDU Administration Sodium Chloride 500 mls @ 10 mls/hr 01/30/19 11:00 Nacl 0.9% 500 Ml IV DIRECT INDU Propofol 1,000 mg in 100 mls @ 1.959 mls/hr 01/30/19 12:00 01/31/19 08:30 Diprivan 10 Mg/Ml IV 25 mcg/kg/min TITR INDU 9.797 mls/hr Titration Protocol 5 MCG/KG/MIN Vasopressin 20 unit/ Sodium 101 mls @ 9.09 mls/hr 01/30/19 13:00 01/31/19 06:13 Chloride IV 0.03 units/min TITR INDU 9.09 mls/hr Administration Protocol 0.03 UNITS/MIN Sodium Bicarbonate 150 meq/ 1,150 mls @ 75 mls/hr 01/30/19 21:00 01/30/19 21:14 Dextrose IV 75 mls/hr DIRECT INDU Administration Phenylephrine HCl 100 mg/ 100 mls @ 3 mls/hr 01/30/19 20:30 01/31/19 08:35 Sodium Chloride IV 400 mcg/min TITR INDU 24 mls/hr Titration Protocol 50 MCG/MIN Norepinephrine 8 mg/ Sodium 250 mls @ 3.75 mls/hr 01/30/19 22:00 01/31/19 02:15 Chloride IV 2 mcg/min TITR INDU 3.75 mls/hr Administration Protocol 2 MCG/MIN Cisatracurium Besylate 10 mg/ 100 mls @ 39.186 mls/hr 01/30/19 23:45 01/31/19 08:32 Sodium Chloride IV Infused TITR INDU Titration Protocol 1 MCG/KG/MIN Fentanyl Citrate 2,000 mcg in 100 mls @ 3.266 mls/hr 01/31/19 07:00 01/31/19 08:04 Fentanyl Drip Premix IV 2 mcg/kg/hr TITR INDU 6.531 mls/hr Administration Protocol 1 MCG/KG/HR Lorazepam 100 mg/ 100 mls @ 1 mls/hr 01/31/19 08:00 01/31/19 08:05 Miscellaneous Information 1 ml IV 1 mls/hr / Sodium Chloride TITR INDU Administration Protocol Ceftriaxone Sodium 2 gm in 100 mls @ 200 mls/hr 01/31/19 10:00 Rocephin/Ns 2 Gm/100 Ml IV Q12HR INDU Lorazepam 2 mg 01/30/19 10:38 Ativan IV Q1HR PRN CIWA-Ar 8-15 Lorazepam 4 mg 01/30/19 10:38 Ativan IV Q1HR PRN CIWA-Ar 16-25 Lorazepam 4 mg 01/30/19 10:38 Ativan IV Q15MIN PRN CIWA-Ar >25 Morphine Sulfate 2 mg 01/28/19 18:36 01/30/19 07:33 Morphine IV 2 mg Q4H PRN Administration Pain, Moderate (4-6) Multi-Ingred Cream/Lotion/Oil/Oint 1 applic 01/31/19 09:00 Artificial Tears Ophth Oint OU Q6H INDU Multivitamins/Minerals 1 each 01/30/19 10:00 01/30/19 10:36 Theragran-M Tab PO 1 each QDAY INDU Administration Pantoprazole Sodium 40 mg 01/30/19 11:00 01/30/19 11:26 Protonix IV 40 mg QDAY INDU Administration Simple Syrup 15 ml 01/30/19 10:57 Simple Syrup FEEDTUBE PRN PRN Hypoglycemia Simple Syrup 30 ml 01/30/19 10:57 Simple Syrup FEEDTUBE PRN PRN Hypoglycemia Sodium Bicarbonate 325 mg 01/30/19 10:57 Sodium Bicarbonate FEEDTUBE PRN PRN For Clogged Feeding Tube Sodium Chloride 10 ml 01/28/19 22:00 01/30/19 23:37 Sodium Chloride Flush Syringe 10 Ml IV 10 ml BID INDU Administration Sodium Chloride 10 ml 01/28/19 18:36 Sodium Chloride Flush Syringe 10 Ml IV PRN PRN LINE FLUSH Thiamine HCl 100 mg 01/30/19 10:00 01/30/19 10:36 Vitamin B-1 PO 100 mg QDAY INDU Administration
[2019-01-31] MEDS: ARTIFICIAL TEARS OPHTH OINT OU SCH ×2 (10:20→14:21)
[2019-01-31] MEDS: VANCOMYCIN/NS 1 GM/250 ML 1 GM/250 ML BAG IV SCH (10:27)
[2019-01-31] MEDS: PROTONIX IV SCH (10:30)
[2019-01-31] MEDS ORDERED: NACL 0.9% 1000 ML 1,000 ML IV ONE ×2 (10:38→18:19)
[2019-01-31] MEDS: INTROPIN DRIP 800 MG/D5W 250 ML 800 MG/250 ML BAG IV SCH ×2 (10:51→22:22)
[2019-01-31] MEDS: FOLVITE PO SCH (10:51)
[2019-01-31] MEDS: VITAMIN B-1 PO SCH (10:51)
--- NOTE | 2019-01-31 10:55 | Progress Note ---
Assessment and Plan Severe Sepsis with septic shock: 12/20 positive blood cultures GPC in chains Bilateral pneumonia: Acute hypoxemic respiratory failure, ARDS Elevated LFTs Pancytopenia CALVIN H/O EtOH Abuse - continue full MVS with target TV 4-6 mls/kg IBW - continue to hyperventilate - continue vasopressors for target MAP > 65 mmHg - get lactate, CRP levels to aid clinical decision making - continue broad spectrum AB's (ID consulted) - CIWA protocol ordered - colloid and crystalloid resuscitation acutely - continue Peep of 19 (will wean slowly depending on oxygenation) - SCDs for VTE prophylaxis - pepcid for stress ulcer prophylaxis - continue Accuchecks with glycemic control far target BG 140-180 mg/dl - 2D Echocardiogram reviewed - continue to avoid nephrotoxics - Trend platelets and monitor for bleeding. Cytopenia could be from sepsis and chronic liver disease - Supportive transfusions as indicated for HgB<7g/dL or platelets <10 - continue lung protective strategies - trickle feeding as tolerated - VAP bundle addressed - Enteric nutrition once OGT placement is confirmed - Continue antibiotics - 2D echocardiogram pending - Change femoral central venous catheter to a line above the diaphragm once c oagulopathy improved - Follow cultures for AB's de-escalation - continue other care per consultants - cardiology consult placed for A-fib with RVR (Amiodarone tentatively) ... care plan discussed with family at bedside ..care plan discussed at length with RN/RT at the bedside PROGNOSIS: GUARDED CONDITION: CRITICAL CODE STATUS: FULL CODE The high probability of a clinically significant, sudden or life-threatening deterioration of the [respiratory, cardiovascular, renal, hematologic] system(s) required my full and direct attention, intervention and personal management. The aggregate critical care time was [40] minutes without overlap. Time includes spent on; [x] Data Review and interpretation [x] Patient assessment and monitoring of vital signs [x] Documentation [x] Medication orders and management Subjective Date of service: 01/31/19 Principal diagnosis: Acute Hypoxemic Resp Failure; ARDS; Severe Sepsis; CALVIN; pancytopenia Interval history: 53 y/o male with history of alcohol dependence, former smoker and gastroesophageal reflux disease admitted on 01/28/2019 sent from the primary care office for 3-week history of cough with hemoptysis and progressive shortness of breath, weight loss Patient is seen today for: Acute Hypoxemic Respiratory Failure; ARDS; Severe Sepsis; Acute Kidney Injury; Abnormal CXR; pancytopenia; acute metabolic encephaloapthy Seen and examined at bedside; 24-hour events reviewed; nursing and respiratory care staff consulted; resmains on MVS; still with ARDS numbers; EF 40% and runs of paroxysmal A-fib; No emesis or overt aspiration; No gross G.I. Bleeding Objective Vital Signs - 12hr 01/30/19 01/30/19 01/30/19 23:01 23:03 23:15 Temperature Pulse Rate 134 H 136 H 132 H Respiratory 26 H 30 H Rate Blood Pressure 140/110 66/56 140/110 O2 Sat by Pulse 76 L 72 L 72 L Oximetry 01/30/19 01/30/19 01/30/19 23:25 23:30 23:32 Temperature 98.5 F 98.5 F Pulse Rate 131 H 132 H 133 H Respiratory 28 H 26 H 28 H Rate Blood Pressure 90/50 147/122 89/52 O2 Sat by Pulse 76 L 78 L 77 L Oximetry 01/30/19 01/31/19 01/31/19 23:45 00:00 00:15 Temperature 99.8 F H Pulse Rate 129 H 131 H 130 H Respiratory 30 H 29 H 27 H Rate Blood Pressure 147/122 106/40 112/40 O2 Sat by Pulse 73 L 77 L 78 L Oximetry 01/31/19 01/31/19 01/31/19 00:30 00:45 01:00 Temperature Pulse Rate 129 H 127 H 131 H Respiratory 29 H 30 H 30 H Rate Blood Pressure 112/40 97/36 98/36 O2 Sat by Pulse 78 L 79 L 84 Oximetry 01/31/19 01/31/19 01/31/19 01:10 01:15 01:17 Temperature 99 F Pulse Rate 131 H 130 H 130 H Respiratory 30 H 30 H Rate Blood Pressure 98/36 91/31 90/51 O2 Sat by Pulse 84 85 86 Oximetry 01/31/19 01/31/19 01/31/19 01:31 01:45 01:55 Temperature Pulse Rate 129 H 129 H Respiratory 30 H 30 H Rate Blood Pressure 91/33 91/33 O2 Sat by Pulse 87 87 91 Oximetry 01/31/19 01/31/19 01/31/19 02:01 02:15 02:30 Temperature Pulse Rate 125 H 125 H 125 H Respiratory 30 H 30 H 30 H Rate Blood Pressure 90/31 96/40 95/40 O2 Sat by Pulse 92 90 91 Oximetry 01/31/19 01/31/19 01/31/19 02:45 03:00 03:15 Temperature Pulse Rate 125 H 125 H 124 H Respiratory 30 H 30 H 31 H Rate Blood Pressure 98/38 99/36 94/36 O2 Sat by Pulse 92 92 93 Oximetry 01/31/19 01/31/19 01/31/19 03:30 03:45 04:00 Temperature 99.7 F H Pulse Rate 124 H 123 H 123 H Respiratory 30 H 30 H 30 H Rate Blood Pressure 97/36 95/31 91/38 O2 Sat by Pulse 93 93 93 Oximetry 01/31/19 01/31/19 01/31/19 04:15 04:30 04:45 Temperature Pulse Rate 122 H 122 H 121 H Respiratory 30 H 30 H 30 H Rate Blood Pressure 94/36 92/34 94/32 O2 Sat by Pulse 93 93 93 Oximetry 01/31/19 01/31/19 01/31/19 04:47 05:00 05:15 Temperature Pulse Rate 121 H 121 H 122 H Respiratory 30 H 30 H Rate Blood Pressure 94/32 91/35 102/33 O2 Sat by Pulse 93 93 93 Oximetry 01/31/19 01/31/19 01/31/19 05:30 05:45 06:00 Temperature Pulse Rate 121 H 116 H 118 H Respiratory 30 H 30 H 30 H Rate Blood Pressure 95/31 97/29 103/35 O2 Sat by Pulse 93 92 91 Oximetry 01/31/19 01/31/19 01/31/19 06:15 06:30 06:45 Temperature Pulse Rate 116 H 117 H 111 H Respiratory 29 H 30 H 30 H Rate Blood Pressure 92/34 97/33 84/29 O2 Sat by Pulse 90 92 92 Oximetry 01/31/19 01/31/19 01/31/19 07:00 07:15 07:30 Temperature Pulse Rate 108 H 112 H 114 H Respiratory 30 H 29 H 30 H Rate Blood Pressure 83/24 93/26 91/34 O2 Sat by Pulse 92 95 95 Oximetry 01/31/19 01/31/19 01/31/19 07:45 07:59 08:00 Temperature 98.0 F Pulse Rate 114 H 116 H Respiratory 30 H 30 H Rate Blood Pressure 110/31 102/31 O2 Sat by Pulse 98 97 Oximetry 01/31/19 01/31/19 01/31/19 08:15 08:27 08:30 Temperature Pulse Rate 115 H 116 H 115 H Respiratory 30 H 30 H Rate Blood Pressure 92/32 58/51 102/31 O2 Sat by Pulse 93 96 99 Oximetry 01/31/19 01/31/19 01/31/19 08:45 09:00 09:13 Temperature Pulse Rate 116 H 116 H Respiratory 30 H 30 H Rate Blood Pressure 103/32 101/44 O2 Sat by Pulse 96 96 96 Oximetry 01/31/19 01/31/19 01/31/19 09:15 09:30 09:45 Temperature Pulse Rate 116 H 116 H 115 H Respiratory 30 H 30 H 30 H Rate Blood Pressure 104/47 94/37 90/33 O2 Sat by Pulse 96 96 96 Oximetry 01/31/19 01/31/19 01/31/19 10:01 10:15 10:36 Temperature Pulse Rate 111 H 110 H Respiratory 29 H 30 H Rate Blood Pressure 87/34 86/31 83/33 O2 Sat by Pulse 94 94 94 Oximetry Constitutional: appears uncomfortable, other (middle aged HM, normocephalic and atraumatic with increased resp effort) Eyes: icteric ENT: oropharynx moist, other (ETT 23 cm ROBBIE) Neck: supple, no lymphadenopathy, no JVD Effort: mildly labored Ascultation: Bilateral: rales Percussion: Bilateral: not dull Cardiovascular: irregular rhythm, other (No R/M) Gastrointestinal: soft, non-tender, non-distended Integumentary: rash, other (echymosis) Extremities: no cyanosis, no edema, pink and warm, pulses normal Neurologic: unable to assess Psychiatric: other (unable to assess) CBC and BMP: 01/31/19 06:00 01/31/19 12:18 ABG, PT/INR, D-dimer: ABG POC ABG pH 7.033 (7.35-7.45) L 01/31/19 04:46 POC ABG pCO2 39.6 (35-45) 01/31/19 04:46 POC ABG pO2 82 (80-105) 01/31/19 04:46 POC ABG HCO3 10.5 (22-26 mml/L) 01/31/19 04:46 POC ABG Total CO2 12 (23-27mmol/L) 01/31/19 04:46 POC ABG O2 Sat 89 01/31/19 04:46 PT/INR, D-dimer PT 19.0 Sec. (12.2-14.9) H 01/28/19 14:09 INR 1.49 (0.87-1.13) H 01/28/19 14:09 864.98 ng/mlDDU (0-234) H 01/28/19 14:09 Abnormal lab findings: Abnormal Labs 01/28/19 01/28/19 01/28/19 14:04 14:04 14:04 WBC 2.8 L RBC 3.58 L Hgb Hct MCV 102 H MCH 35 H RDW 16.1 H Plt Count 20 L Seg Neuts % (Manual) 75.0 H Lymphocytes % (Manual) 12.0 L Nucleated RBC % 1.0 H Seg Neutrophils # Man Lymphocytes # (Manual) 0.3 L PT INR D-Dimer POC ABG pH POC ABG pCO2 POC ABG pO2 Sodium 134 L Chloride 93.8 L Carbon Dioxide 17 L BUN 64 H Creatinine 4.8 H Glucose 57 L Lactic Acid 5.20 H* Calcium 7.0 L Phosphorus Total Bilirubin 2.70 H Direct Bilirubin AST 146 H ALT Alkaline Phosphatase Ammonia C-Reactive Protein Total Protein 5.7 L Albumin 2.1 L Amylase Urine WBC (Auto) Urine Creatinine 01/28/19 01/28/19 01/28/19 14:09 14:49 15:17 WBC RBC Hgb Hct MCV MCH RDW Plt Count Seg Neuts % (Manual) Lymphocytes % (Manual) Nucleated RBC % Seg Neutrophils # Man Lymphocytes # (Manual) PT 19.0 H INR 1.49 H D-Dimer 864.98 H POC ABG pH 7.164 L POC ABG pCO2 48.5 H POC ABG pO2 60 L Sodium Chloride Carbon Dioxide BUN Creatinine Glucose Lactic Acid 4.30 H* Calcium Phosphorus Total Bilirubin Direct Bilirubin AST ALT Alkaline Phosphatase Ammonia C-Reactive Protein Total Protein Albumin Amylase Urine WBC (Auto) Urine Creatinine 01/28/19 01/28/19 01/28/19 17:00 17:17 18:24 WBC RBC Hgb Hct MCV MCH RDW Plt Count Seg Neuts % (Manual) Lymphocytes % (Manual) Nucleated RBC % Seg Neutrophils # Man Lymphocytes # (Manual) PT INR D-Dimer POC ABG pH POC ABG pCO2 POC ABG pO2 Sodium Chloride Carbon Dioxide BUN Creatinine Glucose Lactic Acid 5.00 H* 4.50 H* Calcium Phosphorus Total Bilirubin Direct Bilirubin AST ALT Alkaline Phosphatase Ammonia C-Reactive Protein Total Protein Albumin Amylase Urine WBC (Auto) 11.0 H Urine Creatinine 01/28/19 01/29/19 01/29/19 22:45 04:49 04:49 WBC 15.1 H RBC 3.22 L Hgb 11.1 L Hct 33.1 L MCV 103 H MCH 35 H RDW 15.7 H Plt Count 16 L* Seg Neuts % (Manual) 15.0 L Lymphocytes % (Manual) 3.0 L Nucleated RBC % 6.0 H Seg Neutrophils # Man Lymphocytes # (Manual) 0.5 L PT INR D-Dimer POC ABG pH POC ABG pCO2 POC ABG pO2 Sodium 136 L Chloride Carbon Dioxide 14 L BUN 60 H Creatinine 2.2 H D Glucose 126 H Lactic Acid 4.00 H* Calcium 6.9 L Phosphorus Total Bilirubin 2.50 H Direct Bilirubin AST 278 H ALT 69 H Alkaline Phosphatase Ammonia C-Reactive Protein Total Protein 4.8 L Albumin 1.6 L Amylase Urine WBC (Auto) Urine Creatinine 01/29/19 01/29/19 01/29/19 04:49 04:49 05:27 WBC RBC Hgb Hct MCV MCH RDW Plt Count Seg Neuts % (Manual) Lymphocytes % (Manual) Nucleated RBC % Seg Neutrophils # Man Lymphocytes # (Manual) PT INR D-Dimer POC ABG pH POC ABG pCO2 POC ABG pO2 Sodium Chloride Carbon Dioxide BUN Creatinine Glucose Lactic Acid 3.30 H* 3.20 H* Calcium Phosphorus Total Bilirubin Direct Bilirubin AST ALT Alkaline Phosphatase Ammonia C-Reactive Protein 12.80 H Total Protein Albumin Amylase Urine WBC (Auto) Urine Creatinine 01/29/19 01/29/19 01/30/19 10:50 15:05 04:15 WBC 26.5 H RBC 3.09 L Hgb 10.6 L Hct 31.9 L MCV 103 H MCH 34 H RDW 15.7 H Plt Count 11 L* Seg Neuts % (Manual) Lymphocytes % (Manual) Nucleated RBC % Seg Neutrophils # Man Lymphocytes # (Manual) PT INR D-Dimer POC ABG pH POC ABG pCO2 POC ABG pO2 Sodium Chloride 112.5 H Carbon Dioxide 16 L BUN 71 H Creatinine Glucose 118 H Lactic Acid Calcium 7.6 L Phosphorus Total Bilirubin 2.60 H Direct Bilirubin AST 301 H ALT 70 H Alkaline Phosphatase 150 H Ammonia C-Reactive Protein Total Protein 4.6 L Albumin 1.7 L Amylase Urine WBC (Auto) Urine Creatinine 96.6 H 01/30/19 01/30/19 01/30/19 10:02 12:00 12:00 WBC 32.4 H RBC 3.54 L Hgb Hct MCV 106 H MCH 34 H RDW 16.6 H Plt Count 6 L* Seg Neuts % (Manual) Lymphocytes % (Manual) Nucleated RBC % Seg Neutrophils # Man Lymphocytes # (Manual) PT INR D-Dimer POC ABG pH 7.318 L POC ABG pCO2 31.7 L POC ABG pO2 Sodium Chloride Carbon Dioxide BUN Creatinine Glucose Lactic Acid Calcium 8.0 L Phosphorus 6.10 H Total Bilirubin 3.50 H Direct Bilirubin 3.1 H AST 349 H ALT 76 H Alkaline Phosphatase 208 H Ammonia C-Reactive Protein Total Protein 5.0 L Albumin 1.8 L Amylase 21 L Urine WBC (Auto) Urine Creatinine 01/30/19 01/30/19 01/30/19 12:00 12:26 15:46 WBC RBC Hgb Hct MCV MCH RDW Plt Count Seg Neuts % (Manual) Lymphocytes % (Manual) Nucleated RBC % Seg Neutrophils # Man Lymphocytes # (Manual) PT INR D-Dimer POC ABG pH 7.175 L 7.173 L POC ABG pCO2 POC ABG pO2 53 L Sodium Chloride Carbon Dioxide BUN Creatinine Glucose Lactic Acid Calcium Phosphorus Total Bilirubin Direct Bilirubin AST ALT Alkaline Phosphatase Ammonia 83.0 H C-Reactive Protein Total Protein Albumin Amylase Urine WBC (Auto) Urine Creatinine 01/30/19 01/30/19 01/31/19 18:56 21:16 01:34 WBC RBC Hgb Hct MCV MCH RDW Plt Count Seg Neuts % (Manual) Lymphocytes % (Manual) Nucleated RBC % Seg Neutrophils # Man Lymphocytes # (Manual) PT INR D-Dimer POC ABG pH 7.153 L 7.044 L 6.924 L POC ABG pCO2 46.2 H 56.4 H POC ABG pO2 59 L Sodium Chloride Carbon Dioxide BUN Creatinine Glucose Lactic Acid Calcium Phosphorus Total Bilirubin Direct Bilirubin AST ALT Alkaline Phosphatase Ammonia C-Reactive Protein Total Protein Albumin Amylase Urine WBC (Auto) Urine Creatinine 05/01/31/19 01/31/19 04:46 06:00 06:00 WBC 28.9 H RBC 2.82 L Hgb 9.9 L Hct 31.1 L D MCV 111 H MCH 35 H RDW 17.3 H Plt Count 67 L D Seg Neuts % (Manual) 95.0 H Lymphocytes % (Manual) 3.0 L Nucleated RBC % 3.0 H Seg Neutrophils # Man 27.5 H Lymphocytes # (Manual) 0.9 L PT INR D-Dimer POC ABG pH 7.033 L POC ABG pCO2 POC ABG pO2 Sodium Chloride 109.5 H Carbon Dioxide 12 L BUN 85 H Creatinine Glucose Lactic Acid Calcium 7.8 L Phosphorus Total Bilirubin Direct Bilirubin AST ALT Alkaline Phosphatase Ammonia C-Reactive Protein Total Protein Albumin Amylase Urine WBC (Auto) Urine Creatinine Chest x-ray: image reviewed (dense bibasilar predominant infiltrates) Allied health notes reviewed: nursing
[2019-01-31] MEDS ORDERED: Centrum Liq PO SCH (11:00)
[2019-01-31] MEDS ORDERED: DOBUTREX DRIP 500MG/D5W 250ML 500 MG/250 ML BAG IV SCH (11:00)
[2019-01-31] MEDS: SODIUM CHLORIDE FLUSH SYRINGE 10 ML IV SCH (11:13)
[2019-01-31] MEDS: ROCEPHIN/NS 2 GM/100 ML 2 GM/100 ML BAG IV SCH ×2 (11:33→21:51)
[2019-01-31] MEDS: SODIUM BICARBONATE 150 MEQ in D5W 1,000 ML IV SCH ×2 (12:13→19:49)
[2019-01-31] MEDS ORDERED: ALBURX 25% (ALBUMIN) IV ONE (13:00)
--- NOTE | 2019-01-31 13:14 | Consultation ---
History of Present Illness Consult date: 01/31/19 Requesting physician: ELISABETH BLANCO Consult reason: tachycardia History of present illness: The pt is a 53 y/o male with a history of ETOH dependence, liver failure, former smoker and gastroesophageal reflux disease. He is previously unknown to our practice. He is intubated and sedated on evaluation and thus HPI is obtained per the chart and per his daughters at bedside. Pt was sent to [facility] from PCP office on 01/28/2019 with c/o 3-week history of cough with hemoptysis, progressive shortness of breath and weight loss. Pt was subsequently found to have bilateral PNA, severe sepsis with septic shock, respiratory failure, acute renal failure, anemia, severe thrombocytopenia. He was intubated yesterday. He was noted to have tachycardia and thus cardiology has been consulted. ECG shows ST with freq PACs, review of telemetry shows parox AFib with HR 130s - 160s. Pt is currently hypotensive requiring increasing dosages of levophed and dopamine gtts. Pt's daughters at bedside deny any knowledge of prior cardiac issues, including CAD, AMI or HF. They report that pt was hospitalized for liver failure secondary to ETOH abuse approx 15 years ago. Pt has not regularly followed up with doctors since that time. Echo done yesterday showed EF 45-50%, mild TR. Past History Past Medical History: other (GERD, Alcohol liver disease) Social history: smoking, alcohol abuse Medications and Allergies Allergies Allergy/AdvReac Type Severity Reaction Status Date / Time No Known Allergies Allergy Unverified 01/30/18 14:54 Home Medications Medication Instructions Recorded Confirmed Last Taken Type Folic Acid 1 tab PO QDAY #30 tab 01/30/18 Unknown Rx Folic Acid [Folvite] 1 mg PO QDAY #30 tablet 01/30/18 Unknown Rx Pantoprazole [Protonix TAB] 20 mg PO BID #60 tablet. 01/30/18 Unknown Rx Sucralfate [Carafate] 1 gm PO ACHS #30 tablet 01/30/18 Unknown Rx Thiamine [Vitamin B-1] 100 mg PO QDAY #30 tablet 01/30/18 Unknown Rx Active Meds: Active Medications Lipase/Protease/Amylase (Ashley Beltran 10,500 Unit) 1 each FEEDTUBE PRN PRN PRN Reason: For Clogged Feeding Tube Folic Acid (Folvite) 1 mg PO DAILY INDU Last Admin: 01/31/19 10:51 Dose: 1 mg Documented by: Haloperidol Lactate (Haldol) 5 mg IV Q1HR PRN PRN Reason: Unrespon. to mult. doses BZD's Vancomycin HCl (Vancomycin/Ns 1 Gm/250 Ml) 1 gm in 250 mls @ 167.007 mls/hr IV Q24HR INDU Last Admin: 01/31/19 10:27 Dose: 167.007 mls/hr Documented by: Sodium Chloride (Nacl 0.9% 500 Ml) 500 mls @ 10 mls/hr IV DIRECT INDU Propofol (Diprivan 10 Mg/Ml) 1,000 mg in 100 mls @ 1.959 mls/hr IV TITR INDU; Protocol Last Titration: 01/31/19 11:35 Dose: 0 mcg/kg/min, 0 mls/hr Documented by: Vasopressin 20 unit/ Sodium (Chloride) 101 mls @ 9.09 mls/hr IV TITR INDU; Protocol Last Admin: 01/31/19 06:13 Dose: 0.03 units/min, 9.09 mls/hr Documented by: Sodium Bicarbonate 150 meq/ (Dextrose) 1,150 mls @ 75 mls/hr IV DIRECT INDU Last Infusion: 01/31/19 12:14 Dose: 150 mls/hr Documented by: Phenylephrine HCl 100 mg/ (Sodium Chloride) 100 mls @ 3 mls/hr IV TITR INDU; Protocol Last Admin: 01/31/19 11:06 Dose: 400 mcg/min, 24 mls/hr Documented by: Norepinephrine 8 mg/ Sodium (Chloride) 250 mls @ 3.75 mls/hr IV TITR INDU; Protocol Last Admin: 01/31/19 11:34 Dose: 30 mcg/min, 56.25 mls/hr Documented by: Cisatracurium Besylate 10 mg/ (Sodium Chloride) 100 mls @ 39.186 mls/hr IV TITR INDU; Protocol Last Titration: 01/31/19 08:32 Dose: Infused Documented by: Fentanyl Citrate (Fentanyl Drip Premix) 2,000 mcg in 100 mls @ 3.266 mls/hr IV TITR INDU; Protocol Last Admin: 01/31/19 08:04 Dose: 2 mcg/kg/hr, 6.531 mls/hr Documented by: Lorazepam 100 mg/Miscellaneous Information 1 ml / Sodium Chloride 100 mls @ 1 mls/hr IV TITR [facility]; Protocol Last Admin: 01/31/19 08:05 Dose: 1 mls/hr Documented by: Ceftriaxone Sodium (Rocephin/Ns 2 Gm/100 Ml) 2 gm in 100 mls @ 200 mls/hr IV Q12HR [facility] Last Admin: 01/31/19 11:33 Dose: 200 mls/hr Documented by: Dopamine HCl/Dextrose (Intropin Drip 800 Mg/D5w 250 Ml) 800 mg in 250 mls @ 6.123 mls/hr IV TITR [facility]; Protocol Last Titration: 01/31/19 12:27 Dose: 12 mcg/kg/min, 14.695 mls/hr Documented by: Lorazepam (Ativan) 2 mg IV Q1HR PRN PRN Reason: CIWA-Ar 8-15 Lorazepam (Ativan) 4 mg IV Q1HR PRN PRN Reason: CIWA-Ar 16-25 Lorazepam (Ativan) 4 mg IV Q15MIN PRN PRN Reason: CIWA-Ar >25 Morphine Sulfate (Morphine) 2 mg IV Q4H PRN PRN Reason: Pain, Moderate (4-6) Last Admin: 01/30/19 07:33 Dose: 2 mg Documented by: Multi-Ingred Cream/Lotion/Oil/Oint (Artificial Tears Ophth Oint) 1 applic OU Q6H [facility] Multivitamins (Centrum Liq) 5 ml PO QDAY [facility] Last Admin: 01/31/19 10:51 Dose: 5 ml Documented by: Pantoprazole Sodium (Protonix) 40 mg IV QDAY [facility] Last Admin: 01/31/19 10:30 Dose: 40 mg Documented by: Simple Syrup (Simple Syrup) 15 ml FEEDTUBE PRN PRN PRN Reason: Hypoglycemia Simple Syrup (Simple Syrup) 30 ml FEEDTUBE PRN PRN PRN Reason: Hypoglycemia Sodium Bicarbonate (Sodium Bicarbonate) 325 mg FEEDTUBE PRN PRN PRN Reason: For Clogged Feeding Tube Sodium Chloride (Sodium Chloride Flush Syringe 10 Ml) 10 ml IV BID [facility] Last Admin: 01/31/19 11:13 Dose: 10 ml Documented by: Sodium Chloride (Sodium Chloride Flush Syringe 10 Ml) 10 ml IV PRN PRN PRN Reason: LINE FLUSH Thiamine HCl (Vitamin B-1) 100 mg PO QDAY INDU Last Admin: 01/31/19 10:51 Dose: 100 mg Documented by: Review of Systems ROS unobtainable: due to endotracheal tube, due to mental status Physical Examination Vital Signs Pulse Ox 95 01/28/19 13:24 General appearance: other (intubated, sedated) Cardiac: Positive: irregularly irregular, S1/S2, Tachycardia Lungs: Positive: Decreased Breath Sounds, Oxygen, Ventilated Respirations Extremities: Absent: edema Results 01/31/19 06:00 01/31/19 12:18 CBC 01/30/19 01/31/19 Range/Units 12:00 06:00 WBC 32.4 H 28.9 H (4.5-11.0) K/mm3 RBC 3.54 L 2.82 L (3.65-5.03) M/mm3 Hgb 12.0 9.9 L (11.8-15.2) gm/dl Hct 37.5 31.1 L D (35.5-45.6) % Plt Count 6 L* 67 L D (140-440) K/mm3 Comprehensive Metabolic Panel 01/31/19 Range/Units 06:00 Sodium 145 (137-145) mmol/L Potassium TNR Chloride 109.5 H (98-107) mmol/L Carbon Dioxide 12 L (22-30) mmol/L BUN 85 H (9-20) mg/dL Creatinine TNR Glucose TNR Calcium 7.8 L (8.4-10.2) mg/dL - Imaging and Cardiology Echo: report reviewed (EF 45-50%, mild TR. ) EKG: report reviewed, image reviewed EKG interpretations - Telemetry EKG Rhythm: Sinus Tachycardia - EKG Supraventricular dysrhythmia: atrial fibrillation Assessment and Plan Pt is currently in ST with freq PACs and paroxysmal AFib with RVR. His tachycardia appears to be a physiologic response to severe septic shock and multi organ system failure. Will attempt to optimize HR - initiate IV amio in setting of hypotension. Monitor LFTs. No systemic AC at this time in setting of anemia and severe thrombocytopenia - ? DIC. Overall poor prognosis. Assessment and plan discussed with pt's daughters at bedside. The patient has been seen in conjunction with Dr. Shaw who agrees with the assessment and plan of care. - Patient Problems (1) Paroxysmal atrial fibrillation with RVR Current Visit: Yes Status: Acute (2) Sinus tachycardia Current Visit: Yes Status: Acute (3) Acute respiratory failure with hypoxia Current Visit: Yes Status: Acute (4) Severe sepsis with septic shock Current Visit: Yes Status: Acute (5) Bilateral pneumonia Current Visit: Yes Status: Acute (6) Anemia Current Visit: Yes Status: Acute (7) Thrombocytopenia Current Visit: Yes Status: Acute (8) Transaminitis Current Visit: Yes Status: Acute (9) Acidosis Current Visit: Yes Status: Acute (10) Acute renal failure Current Visit: Yes Status: Acute (11) ETOH abuse Current Visit: Yes Status: Chronic
[2019-01-31] MEDS ORDERED: D50W (25GM) Syringe IV ONE ×2 (13:33→18:00)
[2019-01-31] MEDS ORDERED: CORDARONE 900 MG in D5W 482 ML IV SCH (14:30)
[2019-01-31] MEDS ORDERED: CORDARONE 150 MG in D5W 97 ML IV ONE (14:30)
--- NOTE | 2019-01-31 14:39 | Progress Note ---
Assessment and Plan /Paroxysmal atrial fibrillation with RVR Pt is currently in ST with freq PACs and paroxysmal AFib with RVR. cardiology consulted - initiated IV amio in setting of hypotension. Monitor LFTs. No systemic AC at this time in setting of anemia and severe thrombocytopenia - ? 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 / Septic shock with severe sepsis due to PNA, and bacteremia patient now on 4 pressors Continue iv fluid with bicarbonate cont abx per ID / EtOH dependence CIWA protocol initiated now on sedation / Bilateral pneumonia cont IV rocephin and vancomycin cont IV fluids, follow cx ID following /Septecimia - blood cx positive for GPC - cont abx per ID, no vegetation on TTE /Ham, due to severe sepsis with vasomotor nephropathy - cont iv fluid, improving - nephro consult if renal function declines /Anemia - due to alcohol abuse and severe sepsis - cont to trend, no heparin product /Severe thrombocytopenia - likely from liver disease and severe sepsis - s/p Transfusion of platelets on 01/31/19, monitor CBC /abnormal LFT - due to sepsis and alcoholic liver disease - cont to trend, hepatic US ordered, obtain acute hepatitis pannel / DVT prophylaxis SCD Discussed with family Very poor pronosis The high probability of a clinically significant, sudden or life threatening deterioration of the [multiple] system(s) required my full and direct attention, intervention and personal management. The aggregate critical care time was [35] minutes. This time is in addition to time spent performing reported procedures but includes the following: [x] Data Review and interpretation [x] Patient assessment and monitoring of vital signs [x] Documentation [x] Medication orders and management Brief History: 53-year-old male with history of gastroesophageal reflux disease and EtOH dependence sent from the primary care office for cough shortness of breath and low oxygen saturation levels. On arrival in the emergency room patient was hypotensive and his oxygen saturations were 60% on room air. Patient was kept on nonrebreather and multiple normal saline bolus boluses were given. Patient was placed on levophed, started on abx for b/l PNA and admitted to ICU. Radiological data: CT abdomen and pelvis IMPRESSION: Severe bilateral pulmonary infiltrates likely reflecting pneumonia. No acute intra-abdominal findings on noncontrast CT This document is electronically signed by Alessio Parry MD., Jan 28 2019 05:09:26 PM ET Chest x-ray IMPRESSION: Finding suggestive of mild CHF which appear to be new since 01/30/18. Bibasilar atelectatic changes. Hospitalist Physical exam: GENERAL: well-developed male lying on bed, intubated and sedated. HEENT: Normocephalic. Atraumatic. No conjunctival congestion or icterus. Patient has moist mucous membranes. NECK: Supple. Trachea midline. CHEST/LUNGS: coarse BS auscultated bilaterally, breathing nonlabored on ventilator. HEART/CARDIOVASCULAR: tachycardic. S1 and S2 positive. ABDOMEN: Abdomen is soft, nontender. Patient has normal bowel sounds. SKIN: There is no rash. Warm and dry. NEURO: Sedated. MUSCULOSKELETAL: No joint effusion or tenderness. EXTRIMITY: No edema, no cyanosis or clubbing. PSYCH: Unable to assess. Subjective Date of service: 01/31/19 Principal diagnosis: Acute Hypoxemic Resp Failure; ARDS; Severe Sepsis; HAM; pancytopenia Interval history: patient seen and examined family at bedside, updated with store specialist Continued to be hypoxic overnight, and tachycardic tachypneic ABG showing severe hypoxemia with acidosis following intubation patient is sedated with multiple pressores Discussed with [facility] for possible transfer for ECMO but does nor meet the criteria Noted on tele paroxysmal atrial fib Objective - Constitutional Vitals: Vital Signs - 12hr 01/31/19 01/31/19 01/31/19 02:45 03:00 03:15 Temperature Pulse Rate 125 H 125 H 124 H Respiratory 30 H 30 H 31 H Rate Blood Pressure 98/38 99/36 94/36 O2 Sat by Pulse 92 92 93 Oximetry 01/31/19 01/31/19 01/31/19 03:30 03:45 04:00 Temperature 99.7 F H Pulse Rate 124 H 123 H 123 H Respiratory 30 H 30 H 30 H Rate Blood Pressure 97/36 95/31 91/38 O2 Sat by Pulse 93 93 93 Oximetry 01/31/19 01/31/19 01/31/19 04:15 04:30 04:45 Temperature Pulse Rate 122 H 122 H 121 H Respiratory 30 H 30 H 30 H Rate Blood Pressure 94/36 92/34 94/32 O2 Sat by Pulse 93 93 93 Oximetry 01/31/19 01/31/19 01/31/19 04:47 05:00 05:15 Temperature Pulse Rate 121 H 121 H 122 H Respiratory 30 H 30 H Rate Blood Pressure 94/32 91/35 102/33 O2 Sat by Pulse 93 93 93 Oximetry 01/31/19 01/31/19 01/31/19 05:30 05:45 06:00 Temperature Pulse Rate 121 H 116 H 118 H Respiratory 30 H 30 H 30 H Rate Blood Pressure 95/31 97/29 103/35 O2 Sat by Pulse 93 92 91 Oximetry 01/31/19 01/31/19 01/31/19 06:15 06:30 06:45 Temperature Pulse Rate 116 H 117 H 111 H Respiratory 29 H 30 H 30 H Rate Blood Pressure 92/34 97/33 84/29 O2 Sat by Pulse 90 92 92 Oximetry 01/31/19 01/31/19 01/31/19 07:00 07:15 07:30 Temperature Pulse Rate 108 H 112 H 114 H Respiratory 30 H 29 H 30 H Rate Blood Pressure 83/24 93/26 91/34 O2 Sat by Pulse 92 95 95 Oximetry 01/31/19 01/31/19 01/31/19 07:45 07:59 08:00 Temperature 98.0 F Pulse Rate 114 H 116 H Respiratory 30 H 30 H Rate Blood Pressure 110/31 102/31 O2 Sat by Pulse 98 97 Oximetry 01/31/19 01/31/19 01/31/19 08:15 08:27 08:30 Temperature Pulse Rate 115 H 116 H 115 H Respiratory 30 H 30 H Rate Blood Pressure 92/32 58/51 102/31 O2 Sat by Pulse 93 96 99 Oximetry 01/31/19 01/31/19 01/31/19 08:45 09:00 09:13 Temperature Pulse Rate 116 H 116 H Respiratory 30 H 30 H Rate Blood Pressure 103/32 101/44 O2 Sat by Pulse 96 96 96 Oximetry 01/31/19 01/31/19 01/31/19 09:15 09:30 09:45 Temperature Pulse Rate 116 H 116 H 115 H Respiratory 30 H 30 H 30 H Rate Blood Pressure 104/47 94/37 90/33 O2 Sat by Pulse 96 96 96 Oximetry 0501/31/19 01/31/19 10:00 10:01 10:15 Temperature Pulse Rate 111 H 111 H Respiratory 29 H 30 H Rate Blood Pressure 87/34 86/31 O2 Sat by Pulse 94 94 Oximetry 01/31/19 01/31/19 01/31/19 10:30 10:36 10:45 Temperature Pulse Rate 110 H 110 H 157 H Respiratory 30 H 30 H Rate Blood Pressure 83/33 83/33 80/41 O2 Sat by Pulse 94 94 94 Oximetry 01/31/19 01/31/19 01/31/19 11:00 11:15 11:30 Temperature Pulse Rate 113 H 110 H 124 H Respiratory 30 H 30 H 30 H Rate Blood Pressure 88/32 88/29 107/53 O2 Sat by Pulse 93 94 94 Oximetry 01/31/19 01/31/19 01/31/19 11:45 12:00 12:01 Temperature 97.8 F Pulse Rate 128 H 128 H Respiratory 30 H 29 H Rate Blood Pressure 113/45 112/36 O2 Sat by Pulse 92 90 Oximetry 01/31/19 01/31/19 01/31/19 12:15 12:30 12:45 Temperature Pulse Rate 130 H 129 H 129 H Respiratory 30 H 30 H 30 H Rate Blood Pressure 102/42 117/33 111/33 O2 Sat by Pulse 90 89 90 Oximetry 01/31/19 01/31/19 01/31/19 13:00 13:15 13:30 Temperature Pulse Rate 127 H 127 H 127 H Respiratory 30 H 30 H 30 H Rate Blood Pressure 108/39 97/31 104/36 O2 Sat by Pulse 89 89 90 Oximetry 01/31/19 01/31/19 13:45 14:00 Temperature Pulse Rate 122 H 122 H Respiratory 31 H 30 H Rate Blood Pressure 114/29 112/40 O2 Sat by Pulse 89 90 Oximetry - Labs CBC & Chem 7: 01/31/19 06:00 01/31/19 12:18 Labs: Abnormal lab results 01/30/19 01/30/19 01/30/19 Range/Units 12:00 15:46 18:56 WBC 32.4 H (4.5-11.0) K/mm3 RBC 3.54 L (3.65-5.03) M/mm3 Hgb (11.8-15.2) gm/dl Hct (35.5-45.6) % MCV 106 H (84-94) fl MCH 34 H (28-32) pg RDW 16.6 H (13.2-15.2) % Plt Count 6 L* (140-440) K/mm3 Seg Neuts % (Manual) (40.0-70.0) % Lymphocytes % (Manual) (13.4-35.0) % Nucleated RBC % (0.0-0.9) % Seg Neutrophils # Man (1.8-7.7) K/mm3 Lymphocytes # (Manual) (1.2-5.4) K/mm3 POC ABG pH 7.173 L 7.153 L (7.35-7.45) POC ABG pCO2 (35-45) POC ABG pO2 53 L (80-105) Sodium (137-145) mmol/L Potassium (3.6-5.0) mmol/L Chloride (98-107) mmol/L Carbon Dioxide (22-30) mmol/L BUN (9-20) mg/dL Creatinine (0.8-1.5) mg/dL Glucose (75-100) mg/dL Lactic Acid (0.7-2.0) mmol/L Calcium (8.4-10.2) mg/dL Magnesium (1.7-2.3) mg/dL 01/30/19 01/31/19 01/31/19 Range/Units 21:16 01:34 04:46 WBC (4.5-11.0) K/mm3 RBC (3.65-5.03) M/mm3 Hgb (11.8-15.2) gm/dl Hct (35.5-45.6) % MCV (84-94) fl MCH (28-32) pg RDW (13.2-15.2) % Plt Count (140-440) K/mm3 Seg Neuts % (Manual) (40.0-70.0) % Lymphocytes % (Manual) (13.4-35.0) % Nucleated RBC % (0.0-0.9) % Seg Neutrophils # Man (1.8-7.7) K/mm3 Lymphocytes # (Manual) (1.2-5.4) K/mm3 POC ABG pH 7.044 L 6.924 L 7.033 L (7.35-7.45) POC ABG pCO2 46.2 H 56.4 H (35-45) POC ABG pO2 59 L (80-105) Sodium (137-145) mmol/L Potassium (3.6-5.0) mmol/L Chloride (98-107) mmol/L Carbon Dioxide (22-30) mmol/L BUN (9-20) mg/dL Creatinine (0.8-1.5) mg/dL Glucose (75-100) mg/dL Lactic Acid (0.7-2.0) mmol/L Calcium (8.4-10.2) mg/dL Magnesium (1.7-2.3) mg/dL 01/31/19 01/31/19 01/31/19 Range/Units 06:00 06:00 10:43 WBC 28.9 H (4.5-11.0) K/mm3 RBC 2.82 L (3.65-5.03) M/mm3 Hgb 9.9 L (11.8-15.2) gm/dl Hct 31.1 L D (35.5-45.6) % MCV 111 H (84-94) fl MCH 35 H (28-32) pg RDW 17.3 H (13.2-15.2) % Plt Count 67 L D (140-440) K/mm3 Seg Neuts % (Manual) 95.0 H (40.0-70.0) % Lymphocytes % (Manual) 3.0 L (13.4-35.0) % Nucleated RBC % 3.0 H (0.0-0.9) % Seg Neutrophils # Man 27.5 H (1.8-7.7) K/mm3 Lymphocytes # (Manual) 0.9 L (1.2-5.4) K/mm3 POC ABG pH 7.001 L (7.35-7.45) POC ABG pCO2 46.7 H (35-45) POC ABG pO2 71 L (80-105) Sodium (137-145) mmol/L Potassium (3.6-5.0) mmol/L Chloride 109.5 H (98-107) mmol/L Carbon Dioxide 12 L (22-30) mmol/L BUN 85 H (9-20) mg/dL Creatinine (0.8-1.5) mg/dL Glucose (75-100) mg/dL Lactic Acid (0.7-2.0) mmol/L Calcium 7.8 L (8.4-10.2) mg/dL Magnesium (1.7-2.3) mg/dL 01/31/19 01/31/19 01/31/19 Range/Units 12:18 12:18 12:18 WBC (4.5-11.0) K/mm3 RBC (3.65-5.03) M/mm3 Hgb (11.8-15.2) gm/dl Hct (35.5-45.6) % MCV (84-94) fl MCH (28-32) pg RDW (13.2-15.2) % Plt Count (140-440) K/mm3 Seg Neuts % (Manual) (40.0-70.0) % Lymphocytes % (Manual) (13.4-35.0) % Nucleated RBC % (0.0-0.9) % Seg Neutrophils # Man (1.8-7.7) K/mm3 Lymphocytes # (Manual) (1.2-5.4) K/mm3 POC ABG pH (7.35-7.45) POC ABG pCO2 (35-45) POC ABG pO2 (80-105) Sodium 148 H (137-145) mmol/L Potassium 5.5 H D (3.6-5.0) mmol/L Chloride 109.0 H (98-107) mmol/L Carbon Dioxide 12 L (22-30) mmol/L BUN 84 H (9-20) mg/dL Creatinine 2.4 H D (0.8-1.5) mg/dL Glucose 33 L* (75-100) mg/dL Lactic Acid 12.70 H* (0.7-2.0) mmol/L Calcium 7.0 L (8.4-10.2) mg/dL Magnesium 2.60 H (1.7-2.3) mg/dL 01/31/19 Range/Units 13:27 WBC (4.5-11.0) K/mm3 RBC (3.65-5.03) M/mm3 Hgb (11.8-15.2) gm/dl Hct (35.5-45.6) % MCV (84-94) fl MCH (28-32) pg RDW (13.2-15.2) % Plt Count (140-440) K/mm3 Seg Neuts % (Manual) (40.0-70.0) % Lymphocytes % (Manual) (13.4-35.0) % Nucleated RBC % (0.0-0.9) % Seg Neutrophils # Man (1.8-7.7) K/mm3 Lymphocytes # (Manual) (1.2-5.4) K/mm3 POC ABG pH 7.063 L (7.35-7.45) POC ABG pCO2 58.4 H (35-45) POC ABG pO2 (80-105) Sodium (137-145) mmol/L Potassium (3.6-5.0) mmol/L Chloride (98-107) mmol/L Carbon Dioxide (22-30) mmol/L BUN (9-20) mg/dL Creatinine (0.8-1.5) mg/dL Glucose (75-100) mg/dL Lactic Acid (0.7-2.0) mmol/L Calcium (8.4-10.2) mg/dL Magnesium (1.7-2.3) mg/dL
[2019-01-31 15:24] LABS: INR 3.79 (0.87-1.13)
[2019-01-31] MEDS: D50W (25GM) Syringe IV ONE ×2 (16:30→17:04)
[2019-01-31] MEDS ORDERED: HumuLIN R IV ONE (16:36)
[2019-01-31] MEDS ORDERED: D50W (25GM) Vial IV ONE (16:36)
--- NOTE | 2019-01-31 17:30 | Progress Note ---
Assessment and Plan family at bedside cath placed with wire dictated Subjective Date of service: 01/31/19 Principal diagnosis: septic shock Objective - Constitutional Vitals: Vital Signs - 12hr 01/31/19 01/31/19 01/31/19 05:30 05:45 06:00 Temperature Pulse Rate 121 H 116 H 118 H Pulse Rate [ From Monitor] Respiratory 30 H 30 H 30 H Rate Blood Pressure 95/31 97/29 103/35 O2 Sat by Pulse 93 92 91 Oximetry 01/31/19 01/31/19 01/31/19 06:15 06:30 06:45 Temperature Pulse Rate 116 H 117 H 111 H Pulse Rate [ From Monitor] Respiratory 29 H 30 H 30 H Rate Blood Pressure 92/34 97/33 84/29 O2 Sat by Pulse 90 92 92 Oximetry 01/31/19 01/31/19 01/31/19 07:00 07:15 07:30 Temperature Pulse Rate 108 H 112 H 114 H Pulse Rate [ From Monitor] Respiratory 30 H 29 H 30 H Rate Blood Pressure 83/24 93/26 91/34 O2 Sat by Pulse 92 95 95 Oximetry 01/31/19 01/31/19 01/31/19 07:45 07:59 08:00 Temperature 98.0 F Pulse Rate 114 H 116 H Pulse Rate [ 111 H From Monitor] Respiratory 30 H 30 H Rate Blood Pressure 110/31 102/31 O2 Sat by Pulse 98 97 Oximetry 01/31/19 01/31/19 01/31/19 08:15 08:27 08:30 Temperature Pulse Rate 115 H 116 H 115 H Pulse Rate [ From Monitor] Respiratory 30 H 30 H Rate Blood Pressure 92/32 58/51 102/31 O2 Sat by Pulse 93 96 99 Oximetry 01/31/19 01/31/19 01/31/19 08:45 09:00 09:13 Temperature Pulse Rate 116 H 116 H Pulse Rate [ From Monitor] Respiratory 30 H 30 H Rate Blood Pressure 103/32 101/44 O2 Sat by Pulse 96 96 96 Oximetry 01/31/19 01/31/19 01/31/19 09:15 09:30 09:45 Temperature Pulse Rate 116 H 116 H 115 H Pulse Rate [ From Monitor] Respiratory 30 H 30 H 30 H Rate Blood Pressure 104/47 94/37 90/33 O2 Sat by Pulse 96 96 96 Oximetry 01/31/19 01/31/1919 10:00 10:01 10:15 Temperature Pulse Rate 111 H 111 H Pulse Rate [ From Monitor] Respiratory 29 H 30 H Rate Blood Pressure 87/34 86/31 O2 Sat by Pulse 94 94 Oximetry 01/31/19 01/31/19 01/31/19 10:30 10:36 10:45 Temperature Pulse Rate 110 H 110 H 157 H Pulse Rate [ From Monitor] Respiratory 30 H 30 H Rate Blood Pressure 83/33 83/33 80/41 O2 Sat by Pulse 94 94 94 Oximetry 01/31/19 01/31/19 01/31/19 11:00 11:15 11:30 Temperature Pulse Rate 113 H 110 H 124 H Pulse Rate [ From Monitor] Respiratory 30 H 30 H 30 H Rate Blood Pressure 88/32 88/29 107/53 O2 Sat by Pulse 93 94 94 Oximetry 01/31/19 01/31/19 01/31/19 11:45 12:00 12:01 Temperature 97.8 F Pulse Rate 128 H 128 H Pulse Rate [ 129 H From Monitor] Respiratory 30 H 29 H Rate Blood Pressure 113/45 112/36 O2 Sat by Pulse 92 90 Oximetry 01/31/19 01/31/19 01/31/19 12:15 12:30 12:45 Temperature Pulse Rate 130 H 129 H 129 H Pulse Rate [ From Monitor] Respiratory 30 H 30 H 30 H Rate Blood Pressure 102/42 117/33 111/33 O2 Sat by Pulse 90 89 90 Oximetry 01/31/19 01/31/19 01/31/19 13:00 13:15 13:30 Temperature Pulse Rate 127 H 127 H 127 H Pulse Rate [ From Monitor] Respiratory 30 H 30 H 30 H Rate Blood Pressure 108/39 97/31 104/36 O2 Sat by Pulse 89 89 90 Oximetry 01/31/19 01/31/19 01/31/19 13:45 14:00 14:15 Temperature Pulse Rate 122 H 122 H 124 H Pulse Rate [ From Monitor] Respiratory 31 H 30 H 29 H Rate Blood Pressure 114/29 112/40 107/41 O2 Sat by Pulse 89 90 89 Oximetry 01/31/19 01/31/19 01/31/19 14:31 14:45 15:00 Temperature Pulse Rate 119 H 115 H 113 H Pulse Rate [ From Monitor] Respiratory 30 H 30 H 30 H Rate Blood Pressure 103/35 100/38 99/38 O2 Sat by Pulse 89 88 89 Oximetry 01/31/19 01/31/19 01/31/19 15:15 15:30 15:45 Temperature Pulse Rate 113 H 112 H 111 H Pulse Rate [ From Monitor] Respiratory 30 H 30 H 30 H Rate Blood Pressure 101/39 103/45 104/53 O2 Sat by Pulse 89 89 88 Oximetry 01/31/19 01/31/19 01/31/19 15:48 16:00 16:15 Temperature 98.4 F Pulse Rate 110 H 110 H 109 H Pulse Rate [ 134 H From Monitor] Respiratory 30 H 30 H Rate Blood Pressure 104/53 101/32 102/30 O2 Sat by Pulse 89 88 88 Oximetry 01/31/19 01/31/19 01/31/19 16:31 16:45 17:00 Temperature Pulse Rate 109 H 116 H 112 H Pulse Rate [ From Monitor] Respiratory 30 H 30 H 30 H Rate Blood Pressure 105/51 100/43 98/37 O2 Sat by Pulse 90 89 90 Oximetry 01/31/19 17:15 Temperature Pulse Rate 111 H Pulse Rate [ From Monitor] Respiratory 30 H Rate Blood Pressure 99/37 O2 Sat by Pulse 85 Oximetry General appearance: Present: severe distress - Labs CBC & Chem 7: 01/31/19 06:00 01/31/19 12:18 Labs: Abnormal lab results 01/30/19 01/30/19 01/30/19 Range/Units 12:00 18:56 21:16 WBC 32.4 H (4.5-11.0) K/mm3 RBC 3.54 L (3.65-5.03) M/mm3 Hgb (11.8-15.2) gm/dl Hct (35.5-45.6) % MCV 106 H (84-94) fl MCH 34 H (28-32) pg RDW 16.6 H (13.2-15.2) % Plt Count 6 L* (140-440) K/mm3 Seg Neuts % (Manual) (40.0-70.0) % Lymphocytes % (Manual) (13.4-35.0) % Nucleated RBC % (0.0-0.9) % Seg Neutrophils # Man (1.8-7.7) K/mm3 Lymphocytes # (Manual) (1.2-5.4) K/mm3 PT (12.2-14.9) Sec. INR (0.87-1.13) POC ABG pH 7.153 L 7.044 L (7.35-7.45) POC ABG pCO2 46.2 H (35-45) POC ABG pO2 (80-105) Sodium (137-145) mmol/L Potassium (3.6-5.0) mmol/L Chloride (98-107) mmol/L Carbon Dioxide (22-30) mmol/L BUN (9-20) mg/dL Creatinine (0.8-1.5) mg/dL Glucose (75-100) mg/dL POC Glucose (70-105) Lactic Acid (0.7-2.0) mmol/L Calcium (8.4-10.2) mg/dL Magnesium (1.7-2.3) mg/dL 01/31/19 01/31/19 01/31/19 Range/Units 01:34 04:46 06:00 WBC 28.9 H (4.5-11.0) K/mm3 RBC 2.82 L (3.65-5.03) M/mm3 Hgb 9.9 L (11.8-15.2) gm/dl Hct 31.1 L D (35.5-45.6) % MCV 111 H (84-94) fl MCH 35 H (28-32) pg RDW 17.3 H (13.2-15.2) % Plt Count 67 L D (140-440) K/mm3 Seg Neuts % (Manual) 95.0 H (40.0-70.0) % Lymphocytes % (Manual) 3.0 L (13.4-35.0) % Nucleated RBC % 3.0 H (0.0-0.9) % Seg Neutrophils # Man 27.5 H (1.8-7.7) K/mm3 Lymphocytes # (Manual) 0.9 L (1.2-5.4) K/mm3 PT (12.2-14.9) Sec. INR (0.87-1.13) POC ABG pH 6.924 L 7.033 L (7.35-7.45) POC ABG pCO2 56.4 H (35-45) POC ABG pO2 59 L (80-105) Sodium (137-145) mmol/L Potassium (3.6-5.0) mmol/L Chloride (98-107) mmol/L Carbon Dioxide (22-30) mmol/L BUN (9-20) mg/dL Creatinine (0.8-1.5) mg/dL Glucose (75-100) mg/dL POC Glucose (70-105) Lactic Acid (0.7-2.0) mmol/L Calcium (8.4-10.2) mg/dL Magnesium (1.7-2.3) mg/dL 01/31/19 01/31/19 01/31/19 Range/Units 06:00 10:43 12:18 WBC (4.5-11.0) K/mm3 RBC (3.65-5.03) M/mm3 Hgb (11.8-15.2) gm/dl Hct (35.5-45.6) % MCV (84-94) fl MCH (28-32) pg RDW (13.2-15.2) % Plt Count (140-440) K/mm3 Seg Neuts % (Manual) (40.0-70.0) % Lymphocytes % (Manual) (13.4-35.0) % Nucleated RBC % (0.0-0.9) % Seg Neutrophils # Man (1.8-7.7) K/mm3 Lymphocytes # (Manual) (1.2-5.4) K/mm3 PT (12.2-14.9) Sec. INR (0.87-1.13) POC ABG pH 7.001 L (7.35-7.45) POC ABG pCO2 46.7 H (35-45) POC ABG pO2 71 L (80-105) Sodium 148 H (137-145) mmol/L Potassium 5.5 H D (3.6-5.0) mmol/L Chloride 109.5 H 109.0 H (98-107) mmol/L Carbon Dioxide 12 L 12 L (22-30) mmol/L BUN 85 H 84 H (9-20) mg/dL Creatinine 2.4 H D (0.8-1.5) mg/dL Glucose 33 L* (75-100) mg/dL POC Glucose (70-105) Lactic Acid (0.7-2.0) mmol/L Calcium 7.8 L 7.0 L (8.4-10.2) mg/dL Magnesium (1.7-2.3) mg/dL 01/31/19 01/31/19 01/31/19 Range/Units 12:18 12:18 13:27 WBC (4.5-11.0) K/mm3 RBC (3.65-5.03) M/mm3 Hgb (11.8-15.2) gm/dl Hct (35.5-45.6) % MCV (84-94) fl MCH (28-32) pg RDW (13.2-15.2) % Plt Count (140-440) K/mm3 Seg Neuts % (Manual) (40.0-70.0) % Lymphocytes % (Manual) (13.4-35.0) % Nucleated RBC % (0.0-0.9) % Seg Neutrophils # Man (1.8-7.7) K/mm3 Lymphocytes # (Manual) (1.2-5.4) K/mm3 PT (12.2-14.9) Sec. INR (0.87-1.13) POC ABG pH 7.063 L (7.35-7.45) POC ABG pCO2 58.4 H (35-45) POC ABG pO2 (80-105) Sodium (137-145) mmol/L Potassium (3.6-5.0) mmol/L Chloride (98-107) mmol/L Carbon Dioxide (22-30) mmol/L BUN (9-20) mg/dL Creatinine (0.8-1.5) mg/dL Glucose (75-100) mg/dL POC Glucose (70-105) Lactic Acid 12.70 H* (0.7-2.0) mmol/L Calcium (8.4-10.2) mg/dL Magnesium 2.60 H (1.7-2.3) mg/dL 01/31/19 01/31/19 01/31/19 Range/Units 14:57 14:57 15:54 WBC (4.5-11.0) K/mm3 RBC (3.65-5.03) M/mm3 Hgb (11.8-15.2) gm/dl Hct (35.5-45.6) % MCV (84-94) fl MCH (28-32) pg RDW (13.2-15.2) % Plt Count (140-440) K/mm3 Seg Neuts % (Manual) (40.0-70.0) % Lymphocytes % (Manual) (13.4-35.0) % Nucleated RBC % (0.0-0.9) % Seg Neutrophils # Man (1.8-7.7) K/mm3 Lymphocytes # (Manual) (1.2-5.4) K/mm3 PT 40.1 H (12.2-14.9) Sec. INR 3.79 H (0.87-1.13) POC ABG pH 6.951 L (7.35-7.45) POC ABG pCO2 52.2 H (35-45) POC ABG pO2 59 L (80-105) Sodium (137-145) mmol/L Potassium (3.6-5.0) mmol/L Chloride (98-107) mmol/L Carbon Dioxide (22-30) mmol/L BUN (9-20) mg/dL Creatinine (0.8-1.5) mg/dL Glucose (75-100) mg/dL POC Glucose (70-105) Lactic Acid 14.50 H* (0.7-2.0) mmol/L Calcium (8.4-10.2) mg/dL Magnesium (1.7-2.3) mg/dL 01/31/19 01/31/19 Range/Units 16:07 16:36 WBC (4.5-11.0) K/mm3 RBC (3.65-5.03) M/mm3 Hgb (11.8-15.2) gm/dl Hct (35.5-45.6) % MCV (84-94) fl MCH (28-32) pg RDW (13.2-15.2) % Plt Count (140-440) K/mm3 Seg Neuts % (Manual) (40.0-70.0) % Lymphocytes % (Manual) (13.4-35.0) % Nucleated RBC % (0.0-0.9) % Seg Neutrophils # Man (1.8-7.7) K/mm3 Lymphocytes # (Manual) (1.2-5.4) K/mm3 PT (12.2-14.9) Sec. INR (0.87-1.13) POC ABG pH (7.35-7.45) POC ABG pCO2 (35-45) POC ABG pO2 (80-105) Sodium (137-145) mmol/L Potassium (3.6-5.0) mmol/L Chloride (98-107) mmol/L Carbon Dioxide (22-30) mmol/L BUN (9-20) mg/dL Creatinine (0.8-1.5) mg/dL Glucose (75-100) mg/dL POC Glucose 165 H 108 H (70-105) Lactic Acid (0.7-2.0) mmol/L Calcium (8.4-10.2) mg/dL Magnesium (1.7-2.3) mg/dL Medications & Allergies - Medications Allergies/Adverse Reactions: Allergies No Known Allergies Allergy (Unverified 01/30/18 14:54) Home Medications: Home Medications Medication Instructions Recorded Confirmed Last Taken Type Folic Acid 1 tab PO QDAY #30 tab 01/30/18 Unknown Rx Folic Acid [Folvite] 1 mg PO QDAY #30 tablet 01/30/18 Unknown Rx Pantoprazole [Protonix TAB] 20 mg PO BID #60 tablet. 01/30/18 Unknown Rx Sucralfate [Carafate] 1 gm PO ACHS #30 tablet 01/30/18 Unknown Rx Thiamine [Vitamin B-1] 100 mg PO QDAY #30 tablet 01/30/18 Unknown Rx Active Medications: Generic Name Dose Route Start Last Admin Trade Name Freq PRN Reason Stop Dose Admin Lipase/Protease/Amylase 1 each 01/30/19 10:57 Pancreaze 10,500 Unit FEEDTUBE PRN PRN For Clogged Feeding Tube Dextrose 100 ml 01/31/19 18:00 01/31/19 17:28 D50w (25gm) Syringe IV 01/31/19 18:01 100 ml ONCE ONE Administration Folic Acid 1 mg 01/30/19 10:00 01/31/19 10:51 Folvite PO 1 mg DAILY INDU Administration Haloperidol Lactate 5 mg 01/30/19 10:38 Haldol IV Q1HR PRN Unrespon. to mult. doses BZD's Sodium Chloride 500 mls @ 10 mls/hr 01/30/19 11:00 Nacl 0.9% 500 Ml IV DIRECT INDU Propofol 1,000 mg in 100 mls @ 1.959 mls/hr 01/30/19 12:00 01/31/19 11:35 Diprivan 10 Mg/Ml IV 0 mcg/kg/min TITR INDU 0 mls/hr Titration Protocol 5 MCG/KG/MIN Vasopressin 20 unit/ Sodium 101 mls @ 9.09 mls/hr 01/30/19 13:00 01/31/19 06:13 Chloride IV 0.03 units/min TITR INDU 9.09 mls/hr Administration Protocol 0.03 UNITS/MIN Sodium Bicarbonate 150 meq/ 1,150 mls @ 75 mls/hr 01/30/19 21:00 01/31/19 12:14 Dextrose IV 150 mls/hr DIRECT INDU Infusion Phenylephrine HCl 100 mg/ 100 mls @ 3 mls/hr 01/30/19 20:30 01/31/19 15:18 Sodium Chloride IV 400 mcg/min TITR INDU 24 mls/hr Administration Protocol 50 MCG/MIN Norepinephrine 8 mg/ Sodium 250 mls @ 3.75 mls/hr 01/30/19 22:00 01/31/19 15:25 Chloride IV 30 mcg/min TITR INDU 56.25 mls/hr Administration Protocol 2 MCG/MIN Cisatracurium Besylate 10 mg/ 100 mls @ 39.186 mls/hr 01/30/19 23:45 01/31/19 08:32 Sodium Chloride IV Infused TITR INDU Titration Protocol 1 MCG/KG/MIN Fentanyl Citrate 2,000 mcg in 100 mls @ 3.266 mls/hr 01/31/19 07:00 01/31/19 08:04 Fentanyl Drip Premix IV 2 mcg/kg/hr TITR INDU 6.531 mls/hr Administration Protocol 1 MCG/KG/HR Lorazepam 100 mg/ 100 mls @ 1 mls/hr 01/31/19 08:00 01/31/19 08:05 Miscellaneous Information 1 ml IV 1 mls/hr / Sodium Chloride TITR INDU Administration Protocol Ceftriaxone Sodium 2 gm in 100 mls @ 200 mls/hr 01/31/19 10:00 01/31/19 11:33 Rocephin/Ns 2 Gm/100 Ml IV 200 mls/hr Q12HR INDU Administration Dopamine HCl/Dextrose 800 mg in 250 mls @ 6.123 mls/hr 01/31/19 11:00 01/31/19 15:31 Intropin Drip 800 Mg/D5w 250 Ml IV 20 mcg/kg/min TITR INDU 24.491 mls/hr Titration Protocol 5 MCG/KG/MIN Amiodarone HCl 900 mg/ 500 mls @ 33.333 mls/hr 01/31/19 14:30 01/31/19 14:28 Dextrose IV 1 mg/min DIRECT INDU 33.333 mls/hr Administration Protocol 1 MG/MIN Epinephrine 8 mg/ Sodium 250 mls @ 9.375 mls/hr 01/31/19 18:00 Chloride IV TITR INDU Protocol 5 MCG/MIN Lorazepam 2 mg 01/30/19 10:38 Ativan IV Q1HR PRN CIWA-Ar 8-15 Lorazepam 4 mg 01/30/19 10:38 Ativan IV Q1HR PRN CIWA-Ar 16-25 Lorazepam 4 mg 01/30/19 10:38 Ativan IV Q15MIN PRN CIWA-Ar >25 Morphine Sulfate 2 mg 01/28/19 18:36 01/30/19 07:33 Morphine IV 2 mg Q4H PRN Administration Pain, Moderate (4-6) Multi-Ingred Cream/Lotion/Oil/Oint 1 applic 01/31/19 09:00 01/31/19 14:21 Artificial Tears Ophth Oint OU 1 applic Q6H INDU Administration Multivitamins 5 ml 01/31/19 11:00 01/31/19 10:51 Centrum Liq PO 5 ml QDAY INDU Administration Pantoprazole Sodium 40 mg 01/30/19 11:00 01/31/19 10:30 Protonix IV 40 mg QDAY INDU Administration Simple Syrup 15 ml 01/30/19 10:57 Simple Syrup FEEDTUBE PRN PRN Hypoglycemia Simple Syrup 30 ml 01/30/19 10:57 Simple Syrup FEEDTUBE PRN PRN Hypoglycemia Sodium Bicarbonate 325 mg 01/30/19 10:57 Sodium Bicarbonate FEEDTUBE PRN PRN For Clogged Feeding Tube Sodium Chloride 10 ml 01/28/19 22:00 01/31/19 11:13 Sodium Chloride Flush Syringe 10 Ml IV 10 ml BID INDU Administration Sodium Chloride 10 ml 01/28/19 18:36 Sodium Chloride Flush Syringe 10 Ml IV PRN PRN LINE FLUSH Thiamine HCl 100 mg 01/30/19 10:00 01/31/19 10:51 Vitamin B-1 PO 100 mg QDAY INDU Administration
[2019-01-31] MEDS ORDERED: ADRENALIN 8 MG in NACL 0.9% 250ML 242 ML IV SCH (18:00)
[2019-02-01] MEDS: NEO-SYNEPHRINE 100 MG in NACL 0.9% 90 ML IV SCH (01:33)
[2019-02-01] MEDS: LEVOPHED 8 MG in NACL 0.9% 250ML 242 ML IV SCH (01:34)
--- NOTE | 2019-02-01 04:00 | Consultation ---
HISTORY OF PRESENT ILLNESS: The patient is a 53-year-old gentleman, critically ill, history of alcoholism, anasarca, respiratory failure with no urine output in about 24 hours. Attempted catheterization 2 to 3 times was unsuccessful. Urology consultation was obtained. PAST MEDICAL HISTORY: Critically ill patient. See the chart. PHYSICAL EXAMINATION: GENERAL: He is on a respirator. He is nonresponsive. He is in moderate distress. ABDOMEN: Anasarca, could not really palpate the bladder versus the anasarca. GENITALIA: Atrophic testes, uncircumcised. IMPRESSION: Urinary retention? renal failure. The bladder scan showed 350, using a wire catheter #[id number] [place] was placed. Urine is clear. He is in critical condition. Catheter is left. Family notified. JOB# [id number] ANGELA/BARBI
--- NOTE | 2019-02-01 05:49 | Event Note ---
Date: 02/01/19 I was called to pronounced the pt, on arrival to room, cardiac arrest was confirm, pt had no Vital signs, no heart rate or blood pressure, flat line in the monitor. Family at the beside was informed on pt's condition, all questions was answered.
[2019-02-01 06:49] VITALS: BP 129/110
--- NOTE | 2019-02-01 07:47 | Death Summary ---
Summary - Providers Date of service: 02/01/19 Consults: 01/28/19 18:36 Consult to Dietitian/Nutrition [CONS] Routine Physician Instructions: Reason For Exam: Reason for Consult: Diet education 01/28/19 18:37 Consult to Physician [CONS] Routine Comment: Consulting Provider: ELISABETH BLANCO Physician Instructions: Reason For Exam: septic shock 01/29/19 01:27 Consult to Physician [CONS] Routine Comment: Consulting Provider: ROMEO PANCHAL Physician Instructions: Reason For Exam: CALVIN 01/29/19 01:28 Consult to Physician [CONS] Routine Comment: Consulting Provider: MEDARDO GLORIA Physician Instructions: Reason For Exam: septic shock 01/29/19 15:45 Consult to PICC Line RN [CONS] Urgent Reason For Exam: Pt on levophed, needs to d/c femoral TLC Type Line:: PICC 01/30/19 10:34 Consult to Dietitian/Nutrition [CONS] Routine Physician Instructions: Reason For Exam: intubated Reason for Consult: Write/Manage Tube Feeding 01/31/19 10:49 Consult to Physician [CONS] Routine Comment: Consulting Provider: BRYCE PRECIADO Physician Instructions: Reason For Exam: arrythmia ? A-fib 01/31/19 16:21 Consult to Physician [CONS] Urgent Comment: Consulting Provider: EMMETT WRAY Physician Instructions: Reason For Exam: urinary retention unable to place pate Attending: RYAN MCMAHON - summary Date of admission: 01/28/19 18:36 Date of : 02/01/19 Procedures/treatments rendered: 53-year-old male with history of gastroesophageal reflux disease and EtOH dependence sent from the primary care office for cough, shortness of breath and low oxygen saturation levels. On arrival in the emergency room patient was hypotensive and his oxygen saturations were 60% on room air. Patient was kept on nonrebreather and multiple normal saline bolus boluses were given. Patient was placed on levophed, BiPAP, started on abx for b/l PNA and admitted to ICU. His clinical condition continue to deteriorate, blood culture became positive for GPC. He required multiple pressores, eventually required intubation, urine output declined. Discussed with [facility] for possible transfer for ECMO but he did not meet the criteria. ID was also consulted for abx recommendation. He then developed cardiac arrest , discussion was done with family. Family expressed wishes for patient to be DNR and signed paperwork. Patient was then pronounced . Diagnosis on : / Cardiac arrest due to severe sepsis, acute renal failure /Paroxysmal atrial fibrillation with RVR / Acute respiratory distress syndrome due to severe sepsis / Acute respiratory failure with hypoxia / Septic shock with severe sepsis, due to PNA, and bacteremia / EtOH dependence / Bilateral pneumonia /Septecimia, blood cx positive for GPC /Calvin, due to severe sepsis with vasomotor nephropathy /Anemia, due to alcohol abuse and severe sepsis /Severe thrombocytopenia, likely from liver disease and severe sepsis /abnormal LFT, due to sepsis and alcoholic liver disease / DVT prophylaxis, SCD Radiological data: CT abdomen and pelvis: Severe bilateral pulmonary infiltrates likely reflecting pneumonia. No acute intra-abdominal findings on noncontrast CT Chest x-ray: Finding suggestive of mild CHF which appear to be new since 01/30/18. Bibasilar atelectatic changes. Pulmonary VQ scan: low probability for PE Lower extremity Doppler: no DVT 2d echo: EF 45-50%
== END 2019-01-31 08:35 | DRG 871 ==
LOC: ED 13:31 → CC1 18:36
PROVIDERS: ADMIT Internal Medicine; ATTEND Internal Medicine
PROC: 4A033R1 Measurement of Arterial Saturation, Peripheral, Percutaneous Approach (ICD-10-PCS; 2019-01-28)
PROC: 5A09457 Assistance with Respiratory Ventilation, 24-96 Consecutive Hours, Continuous Positive Airway Pressure (ICD-10-PCS; 2019-01-28)
PROC: 06HM33Z Insertion of Infusion Device into Right Femoral Vein, Percutaneous Approach (ICD-10-PCS; 2019-01-28)
PROC: 5A1945Z Respiratory Ventilation, 24-96 Consecutive Hours (ICD-10-PCS; principal; 2019-01-30)
PROC: 0BH17EZ Insertion of Endotracheal Airway into Trachea, Via Natural or Artificial Opening (ICD-10-PCS; 2019-01-30)
PROC: 30233R1 Transfusion of Nonautologous Platelets into Peripheral Vein, Percutaneous Approach (ICD-10-PCS; 2019-01-30)
DX: A41.9 Sepsis, unspecified organism (principal); R65.21 Severe sepsis with septic shock; J96.01 Acute respiratory failure with hypoxia; J18.9 Pneumonia, unspecified organism; N17.0 Acute kidney failure with tubular necrosis; D61.818 Other pancytopenia; K21.9 Gastro-esophageal reflux disease without esophagitis; F10.20 Alcohol dependence, uncomplicated; D69.6 Thrombocytopenia, unspecified; I48.0 Paroxysmal atrial fibrillation; D64.9 Anemia, unspecified; R74.0 Nonspecific elevation of levels of transaminase and lactic acid dehydrogenase [LDH]; I46.9 Cardiac arrest, cause unspecified; Z79.899 Other long term (current) drug therapy
CPT/HCPCS: 31500; 36415; 36600; 36620; 71045; 74176; 78582; 80048; 80053; 80074; 80076; 80202; 81001; 82140; 82150; 82310; 82570; 82803; 82962; 83735; 84100; 84300; 84484; 85007; 85025; 85027; 85379; 85610; 85730; 86140; 86900; 86901; 87040; 87070; 87102; 87186; 87205; 87806; 93005; 93010; 93306; 93970; 94002; 94003; 94660; 94760; 96361; 96365; G0378; A9540; A9558; C9113; J0171; J0282; J0330; J0456; J0692; J0696; J1250; J1265; J1644; J1815; J1940; J2060; J2250; J2270; J2370; J2704; J3010; J3370; J3411; J7030; J7040; J7042; J7050; J7060; J7070; P9035; P9047